=== PATIENT | female | born 1960 | race Caucasian/White ===

== ENCOUNTER 2021-12-16 16:05 | Inpatient (IN) | payer OTHER ==
[2021-12-16] MEDS ORDERED: Sodium Chloride 0.9% 1000 ML 1,000 ML ONE ×2 (16:16→17:11)
--- NOTE | 2021-12-16 16:26 | ERPHSYRPT ---
- History of Present Illness Time Seen by Provider: 12/16/21 16:25 Source: EMS, long term records Exam Limitations: clinical condition Physician History: This is an obese white female patient sent here via EMS from a local long term because of confusion and altered level consciousness. Her clinical condition precludes her from providing us with any type of history. The patient has been at that long term for approximately 5 days following a right hip replacement and diagnosis of postoperative pneumonia. Patient is at the long term for both recovery and physical therapy. Ordinarily, the patient is awake and alert at least to self. Patient arrives with a systolic blood pressure of 69. Timing/Duration: today Severity: severe Character of Deficits: other (Unable to answer any questions. Patient is moaning and occasionally mumbling) Deficits: bed-ridden Baseline/Normal Cognition: alert but confused Current Cognition: alert but confused Baseline Gait: unable to walk Associated Symptoms: confusion Allergies/Adverse Reactions: No Known Drug Allergies Allergy (Verified 12/16/21 16:36) Home Medications: Acetaminophen 500 mg [Tylenol Extra Strength 500 mg] 500 mg PO Q4-6HPRN PRN 12/16/21 [History] Aspirin EC 325 mg [Ecotrin 325 MG] 325 mg PO BID 12/16/21 [History] Bisacodyl 10 mg [Dulcolax 10 MG SUPP] 10 mg RC DAILY PRN 12/16/21 [History] Budesonide/Formoterol Fumarate [Budesonide-Formoterol 160-4.5] 10.2 gm IH BID 12/16/21 [History] Carvedilol 3.125 mg [Coreg 3.125 MG] 3.125 mg PO BID 12/16/21 [History] Divalproex Sodium 500 mg PO QID 12/16/21 [History] Furosemide [Lasix] 20 mg PO BID 12/16/21 [History] Hydrocodone/Acetaminophen [Hydrocodone-Acetamin 10-325 mg] 1 each PO QID 12/16/21 [History] Levetiracetam [Keppra] 500 mg PO BID 12/16/21 [History] Lisinopril 5 mg [Zestril 5 MG] 5 mg PO DAILY 07/29/22 [History] Travel Risk - International Travel Have you traveled outside of the country in past 3 weeks: No - Coronavirus Screening Are you exhibiting any of the following symptoms?: No Close contact with a COVID-19 positive Pt in past 14-21 Days: No - Review of Systems Constitutional: No Symptoms Eyes: No Symptoms Ears, Nose, & Throat: No Symptoms Respiratory: No Symptoms Cardiac: No Symptoms Abdominal/Gastrointestinal: No Symptoms Genitourinary Symptoms: No Symptoms Musculoskeletal: No Symptoms Skin: No Symptoms Neurological: Lethargy, Other (Confusion) Psychological: No Symptoms Endocrine: No Symptoms Hematologic/Lymphatic: No Symptoms Immunological/Allergic: No Symptoms All Other Systems: Reviewed and Negative - Past Medical History Pertinent Past Medical History: Yes - Past Surgical History Past Surgical History: Yes - Nursing Vital Signs Nursing Vital Signs: Initial Vital Signs Temperature 97.2 F 12/16/21 16:07 Pulse Rate 106 H 12/16/21 16:07 Respiratory Rate 12/16/21 16:07 Blood Pressure 67/55 12/16/21 16:07 O2 Sat by Pulse Oximetry 99 12/16/21 16:07 Pain Scale Pain Intensity 0 - [place] Coma Scale Best Eye Response (Yuliana): (4) open spontaneously Best Verbal Response ([place]): (2) incomprehsible sounds Best Motor Response (Yuliana): (5) localizes to pain Yuliana Total: 11 - Physical Exam General Appearance: moderate distress, alert, obese Eye Exam: bilateral eye: normal inspection, PERRL, EOMI Ears, Nose, Throat Exam: dry mucous membranes Neck Exam: normal inspection, non-tender, supple, full range of motion Respiratory: normal breath sounds, lungs clear, airway intact, No chest tenderness, No respiratory distress Gastrointestinal: soft, normal bowel sounds, tenderness (Appears to have ge neralized tenderness to palpation.), No guarding, No rebound Pelvic Exam: not done Rectal Exam: not done Back Exam: normal inspection, normal range of motion, No CVA tenderness, No vertebral tenderness Extremity Exam: pelvis stable, other (Bandage on right hip) Mental Status: alert, other (Does not follow commands and 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 No comparison twelve-lead EKG available.) Ordered Tests: Active Orders 24 hr Category Date Time Status Drafter Electromechanical STAT Care 12/16/21 16:27 Active EKG-ER Only STAT Care 12/16/21 16:26 Active IV Insertion STAT Care 12/16/21 16:26 Active NPO (ED) STAT Care 12/16/21 16:26 Active Pulse Oximetry (ED) STAT Care 12/16/21 16:26 Active ABDOMEN AND PELVIS W/0 CONTRAS [CT] Stat Exams 12/16/21 16:27 Completed CHEST 1 VIEW (PORTABLE) Stat Exams 12/16/21 16:26 Completed HEAD WITHOUT CONTRAST [CT] Stat Exams 12/16/21 16:26 Completed BLOOD CULTURE Stat Lab 12/16/21 16:35 Received CBC W DIFF Stat Lab 12/16/21 16:35 Completed CMP Stat Lab 12/16/21 16:35 Completed CULTURE,URINE Stat Lab 12/16/21 16:42 Received Lactic Acid Stat Lab 12/16/21 16:26 Completed [place] Screen Stat Lab 12/16/21 16:35 Completed UA W/RFX CULTURE Stat Lab 12/16/21 16:42 Completed Transfer Order Routine Transfer 12/16/21 Ordered Medication Summary Discontinued Medications Generic Name Dose Route Start Last Admin Trade Name Freq PRN Reason Stop Dose Admin Divalproex Sodium 500 mg 12/16/21 18:36 Divalproex Sodium 250 Mg Tablet Delayed Release PO 12/16/21 18:37 STAT ONE Sodium Chloride Confirm 12/16/21 16:16 Sodium Chloride 0.9% 1000 Ml Administered 12/16/21 16:17 Dose 1,000 mls @ ud .ROUTE .STK-MED ONE Sodium Chloride 1,000 mls @ 999 mls/hr 12/16/21 16:26 12/16/21 18:16 Sodium Chloride 0.9% 1000 Ml IV 12/16/21 17:26 Infused .Q1H1M STA Infusion Meropenem 1 gm/ Sodium 100 mls @ 200 mls/hr 12/16/21 17:03 12/16/21 17:11 Chloride IV 12/16/21 17:32 200 mls/hr STAT ONE Administration Sodium Chloride 1,000 mls @ 999 mls/hr 12/16/21 17:03 12/16/21 17:49 Sodium Chloride 0.9% 1000 Ml IV 12/16/21 18:03 999 mls/hr .Q1H1M STA Administration Sodium Chloride Confirm 12/16/21 17:10 Sodium Chloride 100ml Mini-Bag Plus Administered 12/16/21 17:11 Dose 100 mls @ ud IV .STK-MED ONE Sodium Chloride Confirm 12/16/21 17:11 Sodium Chloride 0.9% 1000 Ml Administered 12/16/21 17:12 Dose 1,000 mls @ ud .ROUTE .STK-MED ONE Levetiracetam 500 mg/ Dextrose 105 mls @ 400 mls/hr 12/16/21 17:38 12/16/21 17:51 IV 12/16/21 17:53 400 mls/hr STAT ONE Administration Levetiracetam 500 mg 12/16/21 18:35 Levetiracetam 500 Mg Tablet PO 12/16/21 18:36 STAT ONE Meropenem Confirm 12/16/21 17:10 Meropenem 1 Gm Vial Administered 12/16/21 17:11 Dose 1 gm IV .STK-MED ONE Lab/Rad Data: Laboratory Result Diagrams 12/16/21 16:35 12/16/21 16:35 Laboratory Results 12/16/21 12/16/21 12/16/21 Range/Units 16:42 16:35 16:35 WBC (4.0-10.5) x10^3/uL RBC (4.1-5.4) x10^6/uL Hgb (12.0-16.0) g/dL Hct (35-47) % MCV (78-100) fL MCH (26-32) pg MCHC (32-36) g/dL RDW (11.5-14.0) % Plt Count (150-450) x10^3/uL MPV (7.5-11.0) fL Gran % (36.0-66.0) % Immature Gran % (Auto) (0.00-0.4) % Nucleat RBC Rel Count (0.00-0.1) % Eos # (Auto) (0-0.5) x10^3/uL Immature Gran # (Auto) (0.00-0.03) x10^3u/L Absolute Lymphs (auto) (1.0-4.6) x10^3/uL Absolute Monos (auto) (0.0-1.3) x10^3/uL Absolute Nucleated RBC (0.00-0.01) x10^3u/L Lymphocytes % (24.0-44.0) % Monocytes % (0.0-12.0) % Eosinophils % (0.00-5.0) % Basophils % (0.0-0.4) % Absolute Granulocytes (1.4-6.9) x10^3/uL Basophils # (0-0.4) x10^3/uL Sodium (137-145) mmol/L Potassium (3.5-5.1) mmol/L Chloride (98-107) mmol/L Carbon Dioxide (22-30) mmol/L Anion Gap (5-15) MEQ/L BUN (7-17) mg/dL Creatinine (0.52-1.04) mg/dL Estimated GFR ML/MIN Glucose (74-106) mg/dL Lactic Acid (0.4-2.0) Calcium (8.4-10.2) mg/dL Total Bilirubin (0.2-1.3) mg/dL AST (14-36) U/L ALT (0-35) U/L Alkaline Phosphatase (38-126) U/L Ammonia (9-30) umol/L Serum Total Protein (6.3-8.2) g/dL Albumin (3.5-5.0) g/dL Urinalys Dipstick Clnc MAIN LAB Urine Color YELLOW (YELLOW) Urine Appearance SLIGHTLY CLOUDY (CLEAR) Urine pH 5.0 (5-6) Ur Specific [place] 1.025 (1.005-1.025) POC Urine Protein Conf NEGATIVE (Negative) Urine Ketones NEGATIVE (NEGATIVE) Urine Nitrite NEGATIVE (NEGATIVE) Urine Bilirubin NEGATIVE (NEGATIVE) Urine Urobilinogen 0.2 (0-1) mg/dL Urine Leukocytes MODERATE (NEGATIVE) Urine WBC (Auto) 51-100 (0-5) /HPF Urine RBC (Auto) 26-50 (0-2) /HPF U Epithel Cells (Auto) FEW (FEW) /HPF Urine Bacteria (Auto) FEW (NEGATIVE) /HPF Urine RBC TRACE-LYSED (0-5) William/ul Urine Mucus (Auto) SLIGHT (NEGATIVE) /HPF Ur Culture Indicated? YES Urine Glucose NEGATIVE (NEGATIVE) mg/dL Valproic Acid (50-100) ug/mL Monoscreen NEGATIVE (Negative) Influenza Type A Ag NEGATIVE (NEGATIVE) Influenza Type B Ag NEGATIVE (NEGATIVE) RSV (PCR) NEGATIVE (Negative) SARS-CoV-2 (PCR) NEGATIVE (NEGATIVE) Group A Strep Antibody (NEGATIVE) 12/16/21 12/16/21 12/16/21 Range/Units 16:35 16:35 16:35 WBC (4.0-10.5) x10^3/uL RBC (4.1-5.4) x10^6/uL Hgb (12.0-16.0) g/dL Hct (35-47) % MCV (78-100) fL MCH (26-32) pg MCHC (32-36) g/dL RDW (11.5-14.0) % Plt Count (150-450) x10^3/uL MPV (7.5-11.0) fL Gran % (36.0-66.0) % Immature Gran % (Auto) (0.00-0.4) % Nucleat RBC Rel Count (0.00-0.1) % Eos # (Auto) (0-0.5) x10^3/uL Immature Gran # (Auto) (0.00-0.03) x10^3u/L Absolute Lymphs (auto) (1.0-4.6) x10^3/uL Absolute Monos (auto) (0.0-1.3) x10^3/uL Absolute Nucleated RBC (0.00-0.01) x10^3u/L Lymphocytes % (24.0-44.0) % Monocytes % (0.0-12.0) % Eosinophils % (0.00-5.0) % Basophils % (0.0-0.4) % Absolute Granulocytes (1.4-6.9) x10^3/uL Basophils # (0-0.4) x10^3/uL Sodium 141 (137-145) mmol/L Potassium 4.8 (3.5-5.1) mmol/L Chloride 103 (98-107) mmol/L Carbon Dioxide 27 (22-30) mmol/L Anion Gap 16.1 H (5-15) MEQ/L BUN 49 H (7-17) mg/dL Creatinine 1.70 H (0.52-1.04) mg/dL Estimated GFR 32.5 ML/MIN Glucose 100 (74-106) mg/dL Lactic Acid (0.4-2.0) Calcium 8.5 (8.4-10.2) mg/dL Total Bilirubin 0.80 (0.2-1.3) mg/dL AST 22 (14-36) U/L ALT 12 (0-35) U/L Alkaline Phosphatase 155 H (38-126) U/L Ammonia < 9 L (9-30) umol/L Serum Total Protein 6.1 L (6.3-8.2) g/dL Albumin 2.9 L (3.5-5.0) g/dL Urinalys Dipstick Clnc Urine Color (YELLOW) Urine Appearance (CLEAR) Urine pH (5-6) Ur Specific [place] (1.005-1.025) POC Urine Protein Conf (Negative) Urine Ketones (NEGATIVE) Urine Nitrite (NEGATIVE) Urine Bilirubin (NEGATIVE) Urine Urobilinogen (0-1) mg/dL Urine Leukocytes (NEGATIVE) Urine WBC (Auto) (0-5) /HPF Urine RBC (Auto) (0-2) /HPF U Epithel Cells (Auto) (FEW) /HPF Urine Bacteria (Auto) (NEGATIVE) /HPF Urine RBC (0-5) William/ul Urine Mucus (Auto) (NEGATIVE) /HPF Ur Culture Indicated? Urine Glucose (NEGATIVE) mg/dL Valproic Acid (50-100) ug/mL Monoscreen (Negative) Influenza Type A Ag (NEGATIVE) Influenza Type B Ag (NEGATIVE) RSV (PCR) (Negative) SARS-CoV-2 (PCR) (NEGATIVE) Group A Strep Antibody NOT DETECTED (NEGATIVE) 12/16/21 12/16/21 12/16/21 Range/Units 16:35 16:30 16:26 WBC 8.4 (4.0-10.5) x10^3/uL RBC 2.79 L (4.1-5.4) x10^6/uL Hgb 9.1 L (12.0-16.0) g/dL Hct 30.7 L (35-47) % MCV 110.0 H (78-100) fL MCH 32.6 H (26-32) pg MCHC 29.6 L (32-36) g/dL RDW 19.2 H (11.5-14.0) % Plt Count 110 L (150-450) x10^3/uL MPV 9.6 (7.5-11.0) fL Gran % 70.0 H (36.0-66.0) % Immature Gran % (Auto) 0.6 H (0.00-0.4) % Nucleat RBC Rel Count 0.0 (0.00-0.1) % Eos # (Auto) 0.03 (0-0.5) x10^3/uL Immature Gran # (Auto) 0.05 H (0.00-0.03) x10^3u/L Absolute Lymphs (auto) 1.42 (1.0-4.6) x10^3/uL Absolute Monos (auto) 0.99 (0.0-1.3) x10^3/uL Absolute Nucleated RBC 0.00 (0.00-0.01) x10^3u/L Lymphocytes % 17.0 L (24.0-44.0) % Monocytes % 11.9 (0.0-12.0) % Eosinophils % 0.4 (0.00-5.0) % Basophils % 0.1 (0.0-0.4) % Absolute Granulocytes 5.85 (1.4-6.9) x10^3/uL Basophils # 0.01 (0-0.4) x10^3/uL Sodium (137-145) mmol/L Potassium (3.5-5.1) mmol/L Chloride (98-107) mmol/L Carbon Dioxide (22-30) mmol/L Anion Gap (5-15) MEQ/L BUN (7-17) mg/dL Creatinine (0.52-1.04) mg/dL Estimated GFR ML/MIN Glucose (74-106) mg/dL Lactic Acid 3.4 H (0.4-2.0) Calcium (8.4-10.2) mg/dL Total Bilirubin (0.2-1.3) mg/dL AST (14-36) U/L ALT (0-35) U/L Alkaline Phosphatase (38-126) U/L Ammonia (9-30) umol/L Serum Total Protein (6.3-8.2) g/dL Albumin (3.5-5.0) g/dL Urinalys Dipstick Clnc Urine Color (YELLOW) Urine Appearance (CLEAR) Urine pH (5-6) Ur Specific [place] (1.005-1.025) POC Urine Protein Conf (Negative) Urine Ketones (NEGATIVE) Urine Nitrite (NEGATIVE) Urine Bilirubin (NEGATIVE) Urine Urobilinogen (0-1) mg/dL Urine Leukocytes (NEGATIVE) Urine WBC (Auto) (0-5) /HPF Urine RBC (Auto) (0-2) /HPF U Epithel Cells (Auto) (FEW) /HPF Urine Bacteria (Auto) (NEGATIVE) /HPF Urine RBC (0-5) William/ul Urine Mucus (Auto) (NEGATIVE) /HPF Ur Culture Indicated? Urine Glucose (NEGATIVE) mg/dL Valproic Acid 94.2 (50-100) ug/mL Monoscreen (Negative) Influenza Type A Ag (NEGATIVE) Influenza Type B Ag (NEGATIVE) RSV (PCR) (Negative) SARS-CoV-2 (PCR) (NEGATIVE) Group A Strep Antibody (NEGATIVE) - Progress Progress: improved, re-examined Progress Note: 12/16/21 17:51 CAT scan of the head without contrast shows a nonacute senile brain. There is opacification of bilateral mastoid cells. 12/16/21 18:09 An updated history was obtained from the patient's son-in-law. Patient has a history of lung nodules/opacities. She is in the process of having those worked up at this time. Patient's son-in-law also states that she has a history of seizure disorder and after seizures she has had this kind of reaction. In addition, patient has had low blood pressure several times especially after a seizure episode. CT scan of the abdomen and pelvis without contrast shows no acute intra- abdominal process. There are small bibasilar effusions with compressive atelectasis. There is a question of right mid and right lower lobe masslike opacities present. 12/16/21 18:29 Medical decision making: This patient has pneumonia and a urinary tract infection. She also has hypertension. She has not had her p.m. doses of valproic acid or Keppra. I spoke with Dr. Roger Fields. The plan is to admit her to telemetry with seizure precautions as well as intravenous fluids, intravenous Primaxin, and darted her on her oral antiseizure medications. We will repeat labs in the morning. Counseled pt/family regarding: lab results, diagnosis, rad results - Departure Departure Disposition: In-patient Admission Clinical Impression: Hypotension, Pneumonia, Sepsis, UTI (urinary tract infection) Condition: Fair Critical Care Time: Yes Critical Care Time(excluding separately billable procedures): Critical 30-74 mins (30 minutes)
[2021-12-16] MEDS: Sodium Chloride 0.9% 1000 ML 1,000 ML IV STA ×2 (16:35→17:11)
[2021-12-16 16:47] LABS: Absolute Neutrophil Ct (ANC) 5.85 x10^3/uL (1.4-6.9); Basophil (Absolute #) 0.01 x10^3/uL (0-0.4); Eosinophil % 0.4 % (0.00-5.0); Eosinophil (Absolute #) 0.03 x10^3/uL (0-0.5); Hematocrit 30.7 % (35-47); Hemoglobin 9.1 g/dL (12.0-16.0); Lymphocyte (Absolute #) 1.42 x10^3/uL (1.0-4.6); Mean Corpuscular Hemoglobin 32.6 pg (26-32); Mean Corpuscular Hgb Concent. 29.6 g/dL (32-36); Mean Platelet Volume 9.6 fL (7.5-11.0); Monocyte (Absolute #) 0.99 x10^3/uL (0.0-1.3); Monocytes % 11.9 % (0.0-12.0); Platelet Count 110 x10^3/uL (150-450); Red Blood Count 2.79 x10^6/uL (4.1-5.4); Red Cell Distribution Width 19.2 % (11.5-14.0); White Blood Count 8.4 x10^3/uL (4.0-10.5)
[2021-12-16 16:58] LABS: ALBUMIN 2.9 g/dL (3.5-5.0); ANION GAP 16.1 MEQ/L (5-15); BILIRUBIN,TOTAL 0.8 mg/dL (0.2-1.3); Calcium 8.5 mg/dL (8.4-10.2); Creatinine 1 1.7 mg/dL (0.52-1.04); EST GLOMERULAR FILTRATION RATE 32.5 ML/MIN; Potassium 4.8 mmol/L (3.5-5.1); Total Protein 6.1 g/dL (6.3-8.2)
[2021-12-16] MEDS ORDERED: Merrem 1 GM in Sodium Chloride 100ML MINI-BAG PLUS 100 ML IV ONE (17:03)
[2021-12-16] MEDS ORDERED: Sodium Chloride 0.9% 1000 ML 1,000 ML IV STA (17:03)
[2021-12-16] MEDS ORDERED: Sodium Chloride 100ML MINI-BAG PLUS 100 ML IV ONE (17:10)
[2021-12-16] MEDS ORDERED: Merrem IV ONE (17:10)
[2021-12-16 17:26] LABS: INFLUENZA A NEGATIVE (NEGATIVE); INFLUENZA B NEGATIVE (NEGATIVE); RESPIRATORY SYNCTIAL VIRUS NEGATIVE (Negative); SARS-CoV-2 Xpert Express NEGATIVE (NEGATIVE)
[2021-12-16] MEDS ORDERED: Keppra 500 MG/5 ML*** 500 MG in D5w 100ML Mini Bag 100 ML 100 ML IV ONE (17:38)
--- NOTE | 2021-12-16 17:49 | XRAY ---
Indication: Confusion. Loss of consciousness. Multiple contiguous axial images obtained through the head without contrast. Comparison: None Age-appropriate global atrophy and mild periventricular degenerative micro-ischemia bilaterally. No acute intracranial hemorrhage, abnormal extra-axial fluid collection, or mass effect. Fourth ventricle is midline without hydrocephalus. Bony calvarium intact. Small fluid leveling in both maxillary and left sphenoid sinuses. Opacification of mastoid air cells, right greater than left presumed inflammatory. Impression: Nonacute senile brain. Incidental paranasal sinus disease and opacification both mastoid air cells.
--- NOTE | 2021-12-16 17:57 | XRAY ---
Indication: Confusion, loss of consciousness, and fever. Comparison: July 20, 2011 Portable chest demonstrates new bibasilar infiltrates/atelectasis/effusions. Heart not enlarged. Bony thorax intact with mild osteopenia and degenerative changes.
--- NOTE | 2021-12-16 17:57 | XRAY ---
Indication: Confusion. Loss of consciousness. Multiple contiguous axial images obtained through the abdomen and pelvis without contrast. Comparison: None Patient's arms produces beam artifact limiting exam. Also right hip arthroplasty produces extreme beam artifact also limiting exam. Lung bases demonstrates incompletely visualized small bibasilar effusions and bibasilar compressive atelectasis, right greater than left. Query right middle and partially visualized posterior right lower lobe noncalcified masslike opacities, largest 2.8 cm. Heart not enlarged with mitral valve calcifications. Small hiatal hernia. Noncontrasted stomach and bowel loops appear nonobstructed with normal appendix. Minimal scattered colonic diverticulosis without diverticulitis. No free fluid/air. Mildly distended gallbladder without obvious gallstones. Tiny splenic calcified granulomas. Bilateral adrenal hypertrophy. Urinary bladder is empty with Oneil balloon catheter in situ. Remaining liver, gallbladder, pancreas, spleen, adrenal glands, kidneys, ureters, and uterus unremarkable for noncontrast exam. Moderate scattered vascular calcifications including both renal arteries. 3.3 x 3.5 cm distal AAA. Osseous structures demonstrates mild osteopenia and remote-appearing L1 superior endplate fracture with 50-75 % height loss. Impression: 1. Beam artifact from patient's arms and right hip arthroplasty. 2. Small bibasilar pleural effusions with compressive atelectasis. Query right middle and right lower lobe masslike opacities. Outside comparison studies recommended if available. 3. Mild distended gallbladder without gallstones. Sonogram may yield further information if clinically warranted. 4. Small hiatal hernia, colonic diverticulosis, bilateral adrenal hypertrophy, arterial short disease with distal AAA, and chronic bony findings.
[2021-12-16 18:07] LABS: Bacteria FEW /HPF (NEGATIVE); Epithelial Cells FEW /HPF (FEW); Mucus SLIGHT /HPF (NEGATIVE); RBC 26-50 /HPF (0-2); WBC 51-100 /HPF (0-5)
[2021-12-16 18:08] LABS: Appearance SLIGHTLY CLOUDY (CLEAR); Bilirubin NEGATIVE (NEGATIVE); Glucose NEGATIVE (NEGATIVE); Ketones NEGATIVE (NEGATIVE); Nitrite NEGATIVE (NEGATIVE); Protein,Urine Dip NEGATIVE (Negative); RBC TRACE-LYSED Ery/ul (0-5); Specific Gravity 1.025 (1.005-1.025); Urine Cultured Indicated? YES; Urobilinogen 0.2 mg/dL (0-1)
[2021-12-16 18:09] LABS: Dipstick done @ ? MAIN LAB
[2021-12-16] MEDS ORDERED: KEPPRA PO ONE (18:35)
[2021-12-16] MEDS ORDERED: TYLENOL 325 MG PO PRN (20:05)
[2021-12-16] MEDS ORDERED: Zofran 4 MG/2 ML VIAL IV PRN (20:05)
[2021-12-16] MEDS ORDERED: NOREPINEPHRINE 8 MG/250 ML-D5W 8 MG/250 ML PLAST..BAG IV PRN (21:20)
[2021-12-16] MEDS: Sodium Chloride 0.9% 1000 ML 1,000 ML IV SCH (21:21)
[2021-12-16] MEDS ORDERED: Sodium Chloride 0.9% 500 ML 500 ML IV ONE (21:22)
[2021-12-16] MEDS ORDERED: Levofloxacin 500MG/100ML D5W 500 MG/100 ML BAG IV SCH (22:00)
[2021-12-16] MEDS ORDERED: BRETHINE 1 MG/ML SQ ONE (22:08)
[2021-12-16] MEDS: SUBLIMAZE 100 MCG/2 ML IV PRN (22:12)
[2021-12-16] MEDS ORDERED: XYLOCAINE 1% HCL 20 ML MDV ONE (23:17)
[2021-12-17] MEDS ORDERED: Depacon 500 MG/5 ML IV ONE (01:35)
[2021-12-17] MEDS ORDERED: Sodium Chloride 0.9% 100 ML ONE (01:36)
[2021-12-17] MEDS: Depacon 500 MG/5 ML*** 500 MG in Sodium Chloride 0.9% 100 ML IV SCH ×4 (02:27→23:41)
[2021-12-17] MEDS: SUBLIMAZE 100 MCG/2 ML IV PRN ×3 (03:10→16:05)
[2021-12-17 04:07] LABS: Basophil (Absolute #) 0.01 x10^3/uL (0-0.4); Eosinophil % 0.3 % (0.00-5.0); Eosinophil (Absolute #) 0.02 x10^3/uL (0-0.5); Hemoglobin 8.1 g/dL (12.0-16.0); Lymphocyte (Absolute #) 0.84 x10^3/uL (1.0-4.6); Lymphocytes % 11.8 % (24.0-44.0); Mean Cell Volume 107.1 fL (78-100); Mean Corpuscular Hemoglobin 32.1 pg (26-32); Monocytes % 16.9 % (0.0-12.0); Neutrophil % 70.5 % (36.0-66.0); Platelet Count 111 x10^3/uL (150-450); Red Blood Count 2.52 x10^6/uL (4.1-5.4); Red Cell Distribution Width 18.7 % (11.5-14.0); White Blood Count 7.1 x10^3/uL (4.0-10.5)
[2021-12-17 04:30] LABS: ALBUMIN 2.6 g/dL (3.5-5.0); ALKALINE PHOSPHATASE 146 U/L (38-126); ANION GAP 11.3 MEQ/L (5-15); BLOOD UREA NITROGEN 34 mg/dL (7-17); CHLORIDE 108 mmol/L (98-107); Calcium 8.5 mg/dL (8.4-10.2); Carbon Dioxide 24 mmol/L (22-30); Creatinine 1 0.67 mg/dL (0.52-1.04); EST GLOMERULAR FILTRATION RATE > 60.0 ML/MIN; Glucose 112 mg/dL (74-106); NT PRO BNP 3330 pg/mL (0-900); Potassium 3.8 mmol/L (3.5-5.1); SGOT/AST 23 U/L (14-36); SGPT/ALT 11 U/L (0-35); SODIUM 139 mmol/L (137-145); Total Protein 5.8 g/dL (6.3-8.2)
[2021-12-17] MEDS: Sodium Chloride 0.9% 1000 ML 1,000 ML IV SCH ×2 (05:47→19:18)
--- NOTE | 2021-12-17 07:27 | XRAY ---
Indication: Central line placement. Comparison: Taken earlier in the day Portable chest demonstrates new left subclavian central venous access catheter with tip projecting over proximal SVC. No pneumothorax. Remaining chest unchanged again demonstrating bibasilar infiltrates/atelectasis/effusions. Heart not enlarged.
[2021-12-17] MEDS: Advair Hfa 230/21 Mcg COMMON CANISTER IH SCH ×2 (07:28→18:48)
[2021-12-17] MEDS ORDERED: Keppra 500 MG/5 ML*** 500 MG in D5w 100ML Mini Bag 100 ML 100 ML IV SCH ×2 (09:00→10:00)
--- NOTE | 2021-12-17 12:29 | PCM.HP ---
History of Present Illness - Chief Complaint Chief Complaint: Urosepsis, Pneumonia History of Present Illness: is a 61 year old female pt from [facility] with dementia, HTN, and sz d/o who was brought in by EMS with confusion and AMS. History per ER note and staff as pt is not oriented. She had a hip surgery on the R about 3 weeks ago and had postoperative pneumonia. Brought to [facility] about 4d ago for rehab. When in the ER, she was only slightly arouseable. Her systolic BP was 69 systolic. She was given 2L of fluid in the ER. When she reached the med surg floor, her BP decreased to low 70s systolic and she was moved to ICU and started on levophed. However, the levophed infiltrated x 2 (terbutaline was given SQ at infiltration sites) so she got a central line from Dr. Green (staffing ER - thank you) and received another 500cc NS bolus. Blood cultures were taken x 2. EKG nonacute and troponin elevated, but stable x 3. Initial eGFR 32, but up to >60 this morning. Overnight, Tmax 100.2. Currently her BP is 110s-140s systolic. Her BP meds are of course being held a nd she is only on 2 mcg levophed. She was alert for RN first thing this morning, drinking coffee and eating jello (able to feed herself). At my exam, she was somnolent initially. She remains oriented x 1, which is apparently her baseline (place was "[place]" and month was "[place]" even though I asked it twice). Confused, but pleasant. Says she is cold and does shake intermittently until given a warm blanket. - Review of Systems All Other Systems: Unable due to dementia Medications & Allergies Home Medications: Home Medication List Acetaminophen 500 mg [Tylenol Extra Strength 500 mg] 500 mg PO Q4HPRN PRN 12/16/21 [History Confirmed 12/16/21] Aspirin EC 325 mg [Ecotrin 325 MG] 325 mg PO BID 12/16/21 [History Confirmed 12/16/21] Bisacodyl 10 mg [Dulcolax 10 MG SUPP] 10 mg RC DAILY PRN PRN 12/16/21 [History Confirmed 12/16/21] Budesonide/Formoterol Fumarate [Budesonide-Formoterol 160-4.5] 2 puff IH BID 12/16/21 [History Confirmed 12/16/21] Carvedilol 3.125 mg [Coreg 3.125 MG] 3.125 mg PO BID 12/16/21 [History Confirmed 12/16/21] Divalproex Sodium 500 mg PO QID 12/16/21 [History Confirmed 12/16/21] Furosemide [Lasix] 20 mg PO BID 12/16/21 [History Confirmed 12/16/21] Hydrocodone/Acetaminophen [Hydrocodone-Acetamin 10-325 mg] 1 tab PO Q6H PRN PRN 12/16/21 [History Confirmed 12/16/21] Levetiracetam [Keppra] 500 mg PO BID 12/16/21 [History Confirmed 12/16/21] Lisinopril 5 mg [Zestril 5 MG] 5 mg PO DAILY 12/16/21 [History Confirmed 12/16/21] Magnesium Hydroxide 30 ml [Milk of Magnesia 30 ml] 30 ml PO Q8H PRN PRN 12/16/21 [History Confirmed 12/16/21] Sodium Phosphate,Summit-Dibasic [Fleet Enema] 1 applic RC DAILY PRN PRN 12/16/21 [History Confirmed 12/16/21] Allergies/Adverse Reactions: Allergies Allergy/AdvReac Type Severity Reaction Status Date / Time No Known Drug Allergies Allergy Verified 12/16/21 16:36 - Past Medical History Past Medical History: Yes Neurological History: Dementia, Seizures ENT History: No Pertinent History Cardiac History: Arrhythmia, Congestive Heart Failure Respiratory History: Pneumonia, Other Endocrine Medical History: No Pertinent History Musculoskelatal History: Other GI Medical History: No Pertinent History History: No Pertinent History Pyscho-Social History: Depression Comment: possible cancer nodule in the lung - Female History Are you now?: No - Past Surgical History Past Surgical History: Yes Neuro Surgical History: No Pertinent History Cardiac History: No Pertinent History Respiratory Surgery: No Pertinent History GI Surgical History: No Pertinent History Genitourinary Surgical Hx: No Pertinent History Musculskeletal Surgical Hx: Joint Replacement Female Surgical History: Tubal Ligation Other Surgical History: rt hip - Social History Smoking Status: Heavy tobacco smoker How long have you smoked: 40 years Exposure to second hand smoke: No Alcohol: None Drug Use: none - Physical Exam Vital Signs: Vital Signs - 24 hr Temp Pulse Resp BP BP Pulse Ox 12/17/21 12:00 90 12/17/21 11:00 99.9 F 78 17 116/58 12/17/21 10:00 99.7 F 75 16 157/62 134/84 100 12/17/21 09:00 99.5 F 89 31 H 147/86 97 12/17/21 08:00 99.5 F 83 16 116/76 95 12/17/21 07:56 76 12/17/21 07:28 71 18 98 12/17/21 06:58 99.3 F 87 18 114/70 98 12/17/21 06:00 99.7 F 85 16 119/68 100 12/17/21 05:34 92 H 16 125/66 100 12/17/21 05:00 100.0 F 82 16 146/72 100 12/17/21 04:00 100.0 F 82 20 133/82 99 12/17/21 03:00 100.2 F 98 H 16 135/76 99 12/17/21 02:00 100.2 F 94 H 16 144/87 99 12/17/21 01:00 100.0 F 91 H 16 99/60 100 12/17/21 00:32 68 116/66 12/17/21 00:05 89 169/84 12/16/21 22:55 85 54/36 12/16/21 22:38 95 H 52/38 12/16/21 21:39 100.0 F 86 17 84/59 96 12/16/21 20:25 97 H 18 93 L 12/16/21 20:06 96.8 F 97 H 18 82/54 93 L 12/16/21 18:02 99.5 F 85 22 90/59 99 12/16/21 17:10 100.0 F 90 22 101/73 99 12/16/21 16:32 99 12/16/21 16:07 97.2 F 106 H 22 67/55 99 General Appearance: no apparent distress, other (somnolent initially; woke to touch, then remained awake and answered questions, though often inappropriately.) Neurologic Exam: confusion Eye Exam: eyes nml inspection Neck Exam: normal inspection, non-tender, No lymphadenopathy, No thyromegaly Respiratory Exam: normal breath sounds, lungs clear, No crackles/rales, No rhonchi, No wheezing Cardiovascular Exam: regular rate/rhythm, normal heart sounds, No murmur Gastrointestinal/Abdomen Exam: soft, tenderness (suprapubic: when asked about pain, she says, "I don't want to crap my pants."), No normal bowel sounds (hypoactive but present) Extremity Exam: normal inspection (central line inferior to L shoulder), other (no cyanosis or edema of UE or LE) Skin Exam: normal color, warm, dry, other (several tiny scabs on L hand/wrist) Wound Assessment: Skin/Wound Assessment Wound/Incision Assessment Start: 12/16/21 21:07 Text: Status: Active Freq: Q6H Protocol: Document 12/17/21 08:00 RDUHNE (Rec: 12/17/21 08:10 [email or web address] [id number]) Wound/Incision Assessment Right Hip Wound Assessment Shift Assessment Wound Type Incision Dressing Status Dry & Intact Comment aquacel surgical dressing to right hip CDI Wound Photo Photo Taken No Results - Labs Lab/Micro Results: Lab Results-Last 24 Hours 12/16/21 12/16/21 12/16/21 Range/Units 16:26 16:30 16:35 WBC 8.4 (4.0-10.5) x10^3/uL RBC 2.79 L (4.1-5.4) x10^6/uL Hgb 9.1 L (12.0-16.0) g/dL Hct 30.7 L (35-47) % MCV 110.0 H (78-100) fL MCH 32.6 H (26-32) pg MCHC 29.6 L (32-36) g/dL RDW 19.2 H (11.5-14.0) % Plt Count 110 L (150-450) x10^3/uL MPV 9.6 (7.5-11.0) fL Gran % 70.0 H (36.0-66.0) % Immature Gran % (Auto) 0.6 H (0.00-0.4) % Nucleat RBC Rel Count 0.0 (0.00-0.1) % Eos # (Auto) 0.03 (0-0.5) x10^3/uL Immature Gran # (Auto) 0.05 H (0.00-0.03) x10^3u/L Absolute Lymphs (auto) 1.42 (1.0-4.6) x10^3/uL Absolute Monos (auto) 0.99 (0.0-1.3) x10^3/uL Absolute Nucleated RBC 0.00 (0.00-0.01) x10^3u/L Lymphocytes % 17.0 L (24.0-44.0) % Monocytes % 11.9 (0.0-12.0) % Eosinophils % 0.4 (0.00-5.0) % Basophils % 0.1 (0.0-0.4) % Absolute Granulocytes 5.85 (1.4-6.9) x10^3/uL Basophils # 0.01 (0-0.4) x10^3/uL Sodium (137-145) mmol/L Potassium (3.5-5.1) mmol/L Chloride (98-107) mmol/L Carbon Dioxide (22-30) mmol/L Anion Gap (5-15) MEQ/L BUN (7-17) mg/dL Creatinine (0.52-1.04) mg/dL Estimated GFR ML/MIN Glucose (74-106) mg/dL Lactic Acid 3.4 H (0.4-2.0) Calcium (8.4-10.2) mg/dL Total Bilirubin (0.2-1.3) mg/dL AST (14-36) U/L ALT (0-35) U/L Alkaline Phosphatase (38-126) U/L Ammonia (9-30) umol/L Troponin I (0.000-0.034) ng/mL NT-Pro-B Natriuret Pep (0-900) pg/mL Serum Total Protein (6.3-8.2) g/dL Albumin (3.5-5.0) g/dL Urinalys Dipstick Clnc Urine Color (YELLOW) Urine Appearance (CLEAR) Urine pH (5-6) Ur Specific Smilax (1.005-1.025) POC Urine Protein Conf (Negative) Urine Ketones (NEGATIVE) Urine Nitrite (NEGATIVE) Urine Bilirubin (NEGATIVE) Urine Urobilinogen (0-1) mg/dL Urine Leukocytes (NEGATIVE) Urine WBC (Auto) (0-5) /HPF Urine RBC (Auto) (0-2) /HPF U Epithel Cells (Auto) (FEW) /HPF Urine Bacteria (Auto) (NEGATIVE) /HPF Urine RBC (0-5) William/ul Urine Mucus (Auto) (NEGATIVE) /HPF Ur Culture Indicated? Urine Glucose (NEGATIVE) mg/dL Valproic Acid 94.2 (50-100) ug/mL Monoscreen (Negative) Influenza Type A Ag (NEGATIVE) Influenza Type B Ag (NEGATIVE) RSV (PCR) (Negative) SARS-CoV-2 (PCR) (NEGATIVE) Group A Strep Antibody (NEGATIVE) 12/16/21 12/16/21 12/16/21 Range/Units 16:35 16:35 16:35 WBC (4.0-10.5) x10^3/uL RBC (4.1-5.4) x10^6/uL Hgb (12.0-16.0) g/dL Hct (35-47) % MCV (78-100) fL MCH (26-32) pg MCHC (32-36) g/dL RDW (11.5-14.0) % Plt Count (150-450) x10^3/uL MPV (7.5-11.0) fL Gran % (36.0-66.0) % Immature Gran % (Auto) (0.00-0.4) % Nucleat RBC Rel Count (0.00-0.1) % Eos # (Auto) (0-0.5) x10^3/uL Immature Gran # (Auto) (0.00-0.03) x10^3u/L Absolute Lymphs (auto) (1.0-4.6) x10^3/uL Absolute Monos (auto) (0.0-1.3) x10^3/uL Absolute Nucleated RBC (0.00-0.01) x10^3u/L Lymphocytes % (24.0-44.0) % Monocytes % (0.0-12.0) % Eosinophils % (0.00-5.0) % Basophils % (0.0-0.4) % Absolute Granulocytes (1.4-6.9) x10^3/uL Basophils # (0-0.4) x10^3/uL Sodium 141 (137-145) mmol/L Potassium 4.8 (3.5-5.1) mmol/L Chloride 103 (98-107) mmol/L Carbon Dioxide 27 (22-30) mmol/L Anion Gap 16.1 H (5-15) MEQ/L BUN 49 H (7-17) mg/dL Creatinine 1.70 H (0.52-1.04) mg/dL Estimated GFR 32.5 ML/MIN Glucose 100 (74-106) mg/dL Lactic Acid (0.4-2.0) Calcium 8.5 (8.4-10.2) mg/dL Total Bilirubin 0.80 (0.2-1.3) mg/dL AST 22 (14-36) U/L ALT 12 (0-35) U/L Alkaline Phosphatase 155 H (38-126) U/L Ammonia < 9 L (9-30) umol/L Troponin I (0.000-0.034) ng/mL NT-Pro-B Natriuret Pep (0-900) pg/mL Serum Total Protein 6.1 L (6.3-8.2) g/dL Albumin 2.9 L (3.5-5.0) g/dL Urinalys Dipstick Clnc Urine Color (YELLOW) Urine Appearance (CLEAR) Urine pH (5-6) Ur Specific Smilax (1.005-1.025) POC Urine Protein Conf (Negative) Urine Ketones (NEGATIVE) Urine Nitrite (NEGATIVE) Urine Bilirubin (NEGATIVE) Urine Urobilinogen (0-1) mg/dL Urine Leukocytes (NEGATIVE) Urine WBC (Auto) (0-5) /HPF Urine RBC (Auto) (0-2) /HPF U Epithel Cells (Auto) (FEW) /HPF Urine Bacteria (Auto) (NEGATIVE) /HPF Urine RBC (0-5) William/ul Urine Mucus (Auto) (NEGATIVE) /HPF Ur Culture Indicated? Urine Glucose (NEGATIVE) mg/dL Valproic Acid (50-100) ug/mL Monoscreen (Negative) Influenza Type A Ag (NEGATIVE) Influenza Type B Ag (NEGATIVE) RSV (PCR) (Negative) SARS-CoV-2 (PCR) (NEGATIVE) Group A Strep Antibody NOT DETECTED (NEGATIVE) 12/16/21 12/16/21 12/16/21 Range/Units 16:35 16:35 16:42 WBC (4.0-10.5) x10^3/uL RBC (4.1-5.4) x10^6/uL Hgb (12.0-16.0) g/dL Hct (35-47) % MCV (78-100) fL MCH (26-32) pg MCHC (32-36) g/dL RDW (11.5-14.0) % Plt Count (150-450) x10^3/uL MPV (7.5-11.0) fL Gran % (36.0-66.0) % Immature Gran % (Auto) (0.00-0.4) % Nucleat RBC Rel Count (0.00-0.1) % Eos # (Auto) (0-0.5) x10^3/uL Immature Gran # (Auto) (0.00-0.03) x10^3u/L Absolute Lymphs (auto) (1.0-4.6) x10^3/uL Absolute Monos (auto) (0.0-1.3) x10^3/uL Absolute Nucleated RBC (0.00-0.01) x10^3u/L Lymphocytes % (24.0-44.0) % Monocytes % (0.0-12.0) % Eosinophils % (0.00-5.0) % Basophils % (0.0-0.4) % Absolute Granulocytes (1.4-6.9) x10^3/uL Basophils # (0-0.4) x10^3/uL Sodium (137-145) mmol/L Potassium (3.5-5.1) mmol/L Chloride (98-107) mmol/L Carbon Dioxide (22-30) mmol/L Anion Gap (5-15) MEQ/L BUN (7-17) mg/dL Creatinine (0.52-1.04) mg/dL Estimated GFR ML/MIN Glucose (74-106) mg/dL Lactic Acid (0.4-2.0) Calcium (8.4-10.2) mg/dL Total Bilirubin (0.2-1.3) mg/dL AST (14-36) U/L ALT (0-35) U/L Alkaline Phosphatase (38-126) U/L Ammonia (9-30) umol/L Troponin I (0.000-0.034) ng/mL NT-Pro-B Natriuret Pep (0-900) pg/mL Serum Total Protein (6.3-8.2) g/dL Albumin (3.5-5.0) g/dL Urinalys Dipstick Clnc MAIN LAB Urine Color YELLOW (YELLOW) Urine Appearance SLIGHTLY CLOUDY (CLEAR) Urine pH 5.0 (5-6) Ur Specific Smilax 1.025 (1.005-1.025) POC Urine Protein Conf NEGATIVE (Negative) Urine Ketones NEGATIVE (NEGATIVE) Urine Nitrite NEGATIVE (NEGATIVE) Urine Bilirubin NEGATIVE (NEGATIVE) Urine Urobilinogen 0.2 (0-1) mg/dL Urine Leukocytes MODERATE (NEGATIVE) Urine WBC (Auto) 51-100 (0-5) /HPF Urine RBC (Auto) 26-50 (0-2) /HPF U Epithel Cells (Auto) FEW (FEW) /HPF Urine Bacteria (Auto) FEW (NEGATIVE) /HPF Urine RBC TRACE-LYSED (0-5) William/ul Urine Mucus (Auto) SLIGHT (NEGATIVE) /HPF Ur Culture Indicated? YES Urine Glucose NEGATIVE (NEGATIVE) mg/dL Valproic Acid (50-100) ug/mL Monoscreen NEGATIVE (Negative) Influenza Type A Ag NEGATIVE (NEGATIVE) Influenza Type B Ag NEGATIVE (NEGATIVE) RSV (PCR) NEGATIVE (Negative) SARS-CoV-2 (PCR) NEGATIVE (NEGATIVE) Group A Strep Antibody (NEGATIVE) 12/16/21 12/16/21 12/17/21 Range/Units 18:48 22:10 00:52 WBC (4.0-10.5) x10^3/uL RBC (4.1-5.4) x10^6/uL Hgb (12.0-16.0) g/dL Hct (35-47) % MCV (78-100) fL MCH (26-32) pg MCHC (32-36) g/dL RDW (11.5-14.0) % Plt Count (150-450) x10^3/uL MPV (7.5-11.0) fL Gran % (36.0-66.0) % Immature Gran % (Auto) (0.00-0.4) % Nucleat RBC Rel Count (0.00-0.1) % Eos # (Auto) (0-0.5) x10^3/uL Immature Gran # (Auto) (0.00-0.03) x10^3u/L Absolute Lymphs (auto) (1.0-4.6) x10^3/uL Absolute Monos (auto) (0.0-1.3) x10^3/uL Absolute Nucleated RBC (0.00-0.01) x10^3u/L Lymphocytes % (24.0-44.0) % Monocytes % (0.0-12.0) % Eosinophils % (0.00-5.0) % Basophils % (0.0-0.4) % Absolute Granulocytes (1.4-6.9) x10^3/uL Basophils # (0-0.4) x10^3/uL Sodium (137-145) mmol/L Potassium (3.5-5.1) mmol/L Chloride (98-107) mmol/L Carbon Dioxide (22-30) mmol/L Anion Gap (5-15) MEQ/L BUN (7-17) mg/dL Creatinine (0.52-1.04) mg/dL Estimated GFR ML/MIN Glucose (74-106) mg/dL Lactic Acid 1.2 (0.4-2.0) Calcium (8.4-10.2) mg/dL Total Bilirubin (0.2-1.3) mg/dL AST (14-36) U/L ALT (0-35) U/L Alkaline Phosphatase (38-126) U/L Ammonia (9-30) umol/L Troponin I 0.083 H* 0.078 H* (0.000-0.034) ng/mL NT-Pro-B Natriuret Pep (0-900) pg/mL Serum Total Protein (6.3-8.2) g/dL Albumin (3.5-5.0) g/dL Urinalys Dipstick Clnc Urine Color (YELLOW) Urine Appearance (CLEAR) Urine pH (5-6) Ur Specific Smilax (1.005-1.025) POC Urine Protein Conf (Negative) Urine Ketones (NEGATIVE) Urine Nitrite (NEGATIVE) Urine Bilirubin (NEGATIVE) Urine Urobilinogen (0-1) mg/dL Urine Leukocytes (NEGATIVE) Urine WBC (Auto) (0-5) /HPF Urine RBC (Auto) (0-2) /HPF U Epithel Cells (Auto) (FEW) /HPF Urine Bacteria (Auto) (NEGATIVE) /HPF Urine RBC (0-5) William/ul Urine Mucus (Auto) (NEGATIVE) /HPF Ur Culture Indicated? Urine Glucose (NEGATIVE) mg/dL Valproic Acid (50-100) ug/mL Monoscreen (Negative) Influenza Type A Ag (NEGATIVE) Influenza Type B Ag (NEGATIVE) RSV (PCR) (Negative) SARS-CoV-2 (PCR) (NEGATIVE) Group A Strep Antibody (NEGATIVE) 12/17/21 12/17/21 12/17/21 Range/Units 04:05 04:05 04:05 WBC 7.1 (4.0-10.5) x10^3/uL RBC 2.52 L (4.1-5.4) x10^6/uL Hgb 8.1 L (12.0-16.0) g/dL Hct 27.0 L (35-47) % MCV 107.1 H (78-100) fL MCH 32.1 H (26-32) pg MCHC 30.0 L (32-36) g/dL RDW 18.7 H (11.5-14.0) % Plt Count 111 L (150-450) x10^3/uL MPV 9.0 (7.5-11.0) fL Gran % 70.5 H (36.0-66.0) % Immature Gran % (Auto) 0.4 (0.00-0.4) % Nucleat RBC Rel Count 0.0 (0.00-0.1) % Eos # (Auto) 0.02 (0-0.5) x10^3/uL Immature Gran # (Auto) 0.03 (0.00-0.03) x10^3u/L Absolute Lymphs (auto) 0.84 L (1.0-4.6) x10^3/uL Absolute Monos (auto) 1.20 (0.0-1.3) x10^3/uL Absolute Nucleated RBC 0.00 (0.00-0.01) x10^3u/L Lymphocytes % 11.8 L (24.0-44.0) % Monocytes % 16.9 H (0.0-12.0) % Eosinophils % 0.3 (0.00-5.0) % Basophils % 0.1 (0.0-0.4) % Absolute Granulocytes 5.00 (1.4-6.9) x10^3/uL Basophils # 0.01 (0-0.4) x10^3/uL Sodium 139 (137-145) mmol/L Potassium 3.8 D (3.5-5.1) mmol/L Chloride 108 H (98-107) mmol/L Carbon Dioxide 24 (22-30) mmol/L Anion Gap 11.3 (5-15) MEQ/L BUN 34 H (7-17) mg/dL Creatinine 0.67 (0.52-1.04) mg/dL Estimated GFR > 60.0 ML/MIN Glucose 112 H (74-106) mg/dL Lactic Acid (0.4-2.0) Calcium 8.5 (8.4-10.2) mg/dL Total Bilirubin 0.70 (0.2-1.3) mg/dL AST 23 (14-36) U/L ALT 11 (0-35) U/L Alkaline Phosphatase 146 H (38-126) U/L Ammonia (9-30) umol/L Troponin I 0.084 H* (0.000-0.034) ng/mL NT-Pro-B Natriuret Pep 3330 H (0-900) pg/mL Serum Total Protein 5.8 L (6.3-8.2) g/dL Albumin 2.6 L (3.5-5.0) g/dL Urinalys Dipstick Clnc Urine Color (YELLOW) Urine Appearance (CLEAR) Urine pH (5-6) Ur Specific Smilax (1.005-1.025) POC Urine Protein Conf (Negative) Urine Ketones (NEGATIVE) Urine Nitrite (NEGATIVE) Urine Bilirubin (NEGATIVE) Urine Urobilinogen (0-1) mg/dL Urine Leukocytes (NEGATIVE) Urine WBC (Auto) (0-5) /HPF Urine RBC (Auto) (0-2) /HPF U Epithel Cells (Auto) (FEW) /HPF Urine Bacteria (Auto) (NEGATIVE) /HPF Urine RBC (0-5) William/ul Urine Mucus (Auto) (NEGATIVE) /HPF Ur Culture Indicated? Urine Glucose (NEGATIVE) mg/dL Valproic Acid (50-100) ug/mL Monoscreen (Negative) Influenza Type A Ag (NEGATIVE) Influenza Type B Ag (NEGATIVE) RSV (PCR) (Negative) SARS-CoV-2 (PCR) (NEGATIVE) Group A Strep Antibody (NEGATIVE) Microbiology 12/16/21 16:42 Urine Culture - Preliminary Clean Catch Midstream NO GROWTH TO DATE - Radiology Impressions Radiology Exams & Impressions: Radiology Procedures Category Date Time Status ABDOMEN AND PELVIS W/0 CONTRAS [CT] Stat Exams 12/16/21 16:27 Completed CHEST 1 VIEW (PORTABLE) Routine Exams 12/16/21 23:41 Completed CHEST 1 VIEW (PORTABLE) Stat Exams 12/16/21 16:26 Completed HEAD WITHOUT CONTRAST [CT] Stat Exams 12/16/21 16:26 Completed - Other Procedures and Tests Respiratory Therapy 12/16/21 20:55 Oxygen Nasal Cannula 2 lpm Respiratory Therapy Assessment DAILY 12/17/21 07:00 Respiratory MDI BID Assessment/Plan (1) Sepsis Current Visit: Yes Status: Acute Qualifiers: Sepsis type: sepsis due to unspecified organism Hepatic coma status: without hepatic coma Severe sepsis shock status: with septic shock Assessment & Plan: Much improved this morning. On Levaquin and merropenem day #2. Almost off the levophed. Continue IVF at 75cc/hr. Continue holding po BP meds and lasix until her BP increases further and is stable. (2) Pneumonia Current Visit: Yes Status: Acute Qualifiers: Pneumonia type: due to unspecified organism Laterality: bilateral Lung location: lower lobe of lung Qualified Code(s): J18.9 - Pneumonia, unspecified organism Code(s): J18.9 - PNEUMONIA, UNSPECIFIED ORGANISM (3) UTI (urinary tract infection) Current Visit: Yes Status: Acute Qualifiers: Urinary tract infection type: acute cystitis Hematuria presence: without hematuria Qualified Code(s): N30.00 - Acute cystitis without hematuria Assessment & Plan: on meropenem, cx pending Code(s): N39.0 - URINARY TRACT INFECTION, SITE NOT SPECIFIED (4) Hypotension Current Visit: Yes Status: Resolved Qualifiers: Hypotension type: other hypotension type Qualified Code(s): I95.89 - Other hypotension Code(s): I95.9 - HYPOTENSION, UNSPECIFIED (5) S/P hip arthroscopy Current Visit: Yes Status: Acute Assessment & Plan: 3 weeks ago, dressing still present. Unsure who surgeon is and when she is supposed to f/u - Code(s): Z98.890 - OTHER SPECIFIED POSTPROCEDURAL STATES (6) Dementia Current Visit: Yes Status: Chronic Qualifiers: Dementia type: unspecified type Dementia behavioral disturbance: without behavioral disturbance Qualified Code(s): F03.90 - Unspecified dementia without behavioral disturbance Code(s): F03.90 - UNSPECIFIED DEMENTIA WITHOUT BEHAVIORAL DISTURBANCE (7) CHF (congestive heart failure) Current Visit: Yes Status: Chronic Qualifiers: Heart failure type: unspecified Heart failure chronicity: unspecified Qualified Code(s): I50.9 - Heart failure, unspecified Code(s): I50.9 - HEART FAILURE, UNSPECIFIED (8) Seizure disorder Current Visit: Yes Status: Chronic Assessment & Plan: change keppra and depakote back to Po as she seems able to tolerate it now. Code(s): G40.909 - EPILEPSY, UNSP, NOT INTRACTABLE, WITHOUT STATUS EPILEPTICUS
[2021-12-17] MEDS ORDERED: Dulcolax 10 MG SUPP RC PRN (12:44)
[2021-12-17] MEDS ORDERED: MILK OF MAGNESIA 30 ML PO PRN (12:44)
[2021-12-17] MEDS ORDERED: TYLENOL EXTRA STRENGTH 500 MG PO PRN (12:44)
[2021-12-17] MEDS ORDERED: PHARMACY DOSING REQUEST MC ONE (13:02)
[2021-12-17] MEDS: Merrem 1 GM in Sodium Chloride 100ML MINI-BAG PLUS 100 ML IV SCH (13:51)
[2021-12-17] MEDS: KEPPRA PO SCH (21:33)
[2021-12-17] MEDS ORDERED: NON-FORMULARY ITEM (Budesonide/Formoterol Fumarate [Budesonide-Formoterol 160-4.5] 10.2 GM IH SCH (22:00)
[2021-12-17] MEDS ORDERED: Ecotrin 325 MG PO SCH (22:00)
[2021-12-18] MEDS: Merrem 1 GM in Sodium Chloride 100ML MINI-BAG PLUS 100 ML IV SCH ×2 (01:43→13:25)
[2021-12-18] MEDS: Depacon 500 MG/5 ML*** 500 MG in Sodium Chloride 0.9% 100 ML IV SCH ×3 (05:22→17:09)
[2021-12-18] MEDS: Advair Hfa 230/21 Mcg COMMON CANISTER IH SCH ×2 (06:41→18:48)
[2021-12-18] MEDS: KEPPRA PO SCH ×2 (07:39→21:30)
[2021-12-18] MEDS: SUBLIMAZE 100 MCG/2 ML IV PRN (07:40)
[2021-12-18 07:43] LABS: Hematocrit 23.6 % (35-47); Hemoglobin 7.1 g/dL (12.0-16.0); Mean Cell Volume 106.8 fL (78-100); Mean Corpuscular Hemoglobin 32.1 pg (26-32); Mean Corpuscular Hgb Concent. 30.1 g/dL (32-36); Mean Platelet Volume 9.3 fL (7.5-11.0); Platelet Count 105 x10^3/uL (150-450); Red Blood Count 2.21 x10^6/uL (4.1-5.4); Red Cell Distribution Width 18.4 % (11.5-14.0); White Blood Count 4.3 x10^3/uL (4.0-10.5)
[2021-12-18 07:48] LABS: ANION GAP 6.8 MEQ/L (5-15); BLOOD UREA NITROGEN 13 mg/dL (7-17); CHLORIDE 108 mmol/L (98-107); Calcium 8.1 mg/dL (8.4-10.2); Carbon Dioxide 27 mmol/L (22-30); Creatinine 1 0.41 mg/dL (0.52-1.04); EST GLOMERULAR FILTRATION RATE > 60.0 ML/MIN; Glucose 94 mg/dL (74-106); Potassium 3.2 mmol/L (3.5-5.1); SODIUM 139 mmol/L (137-145)
--- NOTE | 2021-12-18 12:14 | PCM.NOTE ---
Date and Time: 12/18/21 1209 Subjective Assessment: Pt is more awake today. Continues to be confused. Has pain when being re- adjusted by staff. Tolerating po; ate well yesterday but about 25% of breakfast this morning. Levophed was stopped about 2 am. Pt tells me "I want to go home," and when asked where she is, says, "I don't know which one," but cannot elaborate on that. - Review of Systems All Other Systems: Unable due to dementia Objective Exam General Appearance: mild distress, alert Neurologic Exam: disoriented Skin Exam: normal color, warm, dry, No rash Wound Assessment: Skin/Wound Assessment Wound/Incision Assessment Start: 12/16/21 21:07 Text: Status: Active Freq: Q6H Protocol: Document 12/18/21 07:34 SOURAV (Rec: 12/18/21 07:35 SOURAV [id number]) Wound/Incision Assessment Right Hip Wound Assessment Shift Assessment Wound Type Incision Dressing Status Dry & Intact Comment aquacel surgical dressing to right hip CDI---remains true Wound Photo Photo Taken No Eye Exam: eyes nml inspection Ears, Nose, Throat Exam: moist mucous membranes Neck Exam: normal inspection Respiratory Exam: normal breath sounds, lungs clear, No crackles/rales, No rhonchi, No wheezing Cardiovascular Exam: regular rate/rhythm, normal heart sounds, No murmur Gastrointestinal/Abdomen Exam: soft, normal bowel sounds, No tenderness, No distention, No mass, No guarding, No rebound Extremity Exam: No pedal edema, No swelling OBJECTIVE DATA Vital Signs: Vital Signs - 24 hr Temp Pulse Resp BP Pulse Ox 12/18/21 11:00 98.6 F 65 14 122/56 90 L 12/18/21 07:46 100 F 77 16 119/69 95 12/18/21 07:34 86 12/18/21 07:24 100 F 86 23 118/73 98 12/18/21 06:52 100.0 F 74 24 121/62 99 12/18/21 06:41 105 H 16 100 12/18/21 06:00 100.2 F 84 34 H 120/67 98 12/18/21 05:00 100.4 F 85 24 121/62 99 12/18/21 04:45 74 21 128/60 100 12/18/21 04:31 78 22 99/55 99 12/18/21 04:00 100.4 F 90 23 124/57 99 12/18/21 03:31 90 19 131/76 100 12/18/21 03:16 84 20 130/65 100 12/18/21 02:58 100.4 F 74 24 142/75 97 12/18/21 02:04 100.6 F 75 24 149/89 100 12/18/21 01:06 100.8 F 79 24 123/62 98 12/18/21 00:55 100.8 F 78 23 132/78 99 12/17/21 23:52 84 12/17/21 23:42 100.9 F 94 H 20 159/69 99 12/17/21 22:47 100.8 F 92 H 21 158/81 99 12/17/21 21:53 100.6 F 82 18 104/53 100 12/17/21 21:00 100.8 F 72 20 130/78 99 12/17/21 20:00 79 12/17/21 19:49 100.6 F 72 18 120/54 98 12/17/21 19:00 100.6 F 74 19 138/71 99 12/17/21 18:48 91 H 16 98 12/17/21 18:00 100.4 F 69 19 121/58 12/17/21 17:00 100.4 F 85 20 110/53 94 L 12/17/21 16:00 100.2 F 94 H 20 104/94 95 12/17/21 15:00 100.2 F 93 H 22 128/74 89 L 12/17/21 14:00 100.0 F 81 19 130/78 12/17/21 13:00 86 23 102/81 91 L Pain Assessment - Last Documented Pain Intensity 8 Pain Scale Used 0-10 Pain Scale Intake and Output: Intake & Output 12/16/21 12/17/21 12/18/21 12/19/21 11:59 11:59 11:59 11:59 Intake Total 1312 3629 Output Total 1550 1550 Balance -238 2079 Weight 73.5 kg 74.5 kg Lab Results: Lab Results-Last 24 Hours 12/18/21 12/18/21 Range/Units 07:25 07:25 WBC 4.3 (4.0-10.5) x10^3/uL RBC 2.21 L (4.1-5.4) x10^6/uL Hgb 7.1 L (12.0-16.0) g/dL Hct 23.6 L (35-47) % MCV 106.8 H (78-100) fL MCH 32.1 H (26-32) pg MCHC 30.1 L (32-36) g/dL RDW 18.4 H (11.5-14.0) % Plt Count 105 L (150-450) x10^3/uL MPV 9.3 (7.5-11.0) fL Sodium 139 (137-145) mmol/L Potassium 3.2 L (3.5-5.1) mmol/L Chloride 108 H (98-107) mmol/L Carbon Dioxide 27 (22-30) mmol/L Anion Gap 6.8 (5-15) MEQ/L BUN 13 (7-17) mg/dL Creatinine 0.41 L (0.52-1.04) mg/dL Estimated GFR > 60.0 ML/MIN Glucose 94 (74-106) mg/dL Calcium 8.1 L (8.4-10.2) mg/dL Radiology Exams: Radiology Procedures Category Date Time Status ABDOMEN AND PELVIS W/0 CONTRAS [CT] Stat Exams 12/16/21 16:27 Completed CHEST 1 VIEW (PORTABLE) Routine Exams 12/16/21 23:41 Completed CHEST 1 VIEW (PORTABLE) Stat Exams 12/16/21 16:26 Completed HEAD WITHOUT CONTRAST [CT] Stat Exams 12/16/21 16:26 Completed Assessment/Plan (1) Sepsis Current Visit: Yes Status: Acute Qualifiers: Sepsis type: sepsis due to unspecified organism Hepatic coma status: without hepatic coma Severe sepsis shock status: with septic shock Assessment & Plan: Much improved, off the levophed drip. Continue merrem, day #2. (2) Anemia Current Visit: Yes Status: Acute Qualifiers: Anemia type: unspecified type Qualified Code(s): D64.9 - Anemia, unspecified Assessment & Plan: transfuse 2 units PRBC, as her hgb is 7.1 and she has cardiac disease. Code(s): D64.9 - ANEMIA, UNSPECIFIED (3) Pneumonia Current Visit: Yes Status: Acute Qualifiers: Pneumonia type: due to unspecified organism Laterality: bilateral Lung location: lower lobe of lung Qualified Code(s): J18.9 - Pneumonia, unspecified organism Code(s): J18.9 - PNEUMONIA, UNSPECIFIED ORGANISM (4) UTI (urinary tract infection) Current Visit: Yes Status: Acute Qualifiers: Urinary tract infection type: acute cystitis Hematuria presence: without hematuria Qualified Code(s): N30.00 - Acute cystitis without hematuria Code(s): N39.0 - URINARY TRACT INFECTION, SITE NOT SPECIFIED (5) Hypotension Current Visit: Yes Status: Resolved Qualifiers: Hypotension type: other hypotension type Qualified Code(s): I95.89 - Other hypotension Assessment & Plan: resolved; will restart home meds when her bp increases. Code(s): I95.9 - HYPOTENSION, UNSPECIFIED (6) S/P hip arthroscopy Current Visit: Yes Status: Chronic Assessment & Plan: by Dr. Mead. Will find out what follow up she needs, and when to start dressing changes. Code(s): Z98.890 - OTHER SPECIFIED POSTPROCEDURAL STATES (7) Dementia Current Visit: Yes Status: Chronic Qualifiers: Dementia type: unspecified type Dementia behavioral disturbance: without behavioral disturbance Qualified Code(s): F03.90 - Unspecified dementia without behavioral disturbance Code(s): F03.90 - UNSPECIFIED DEMENTIA WITHOUT BEHAVIORAL DISTURBANCE (8) CHF (congestive heart failure) Current Visit: Yes Status: Chronic Qualifiers: Heart failure type: unspecified Heart failure chronicity: unspecified Qualified Code(s): I50.9 - Heart failure, unspecified Code(s): I50.9 - HEART FAILURE, UNSPECIFIED (9) Seizure disorder Current Visit: Yes Status: Chronic Code(s): G40.909 - EPILEPSY, UNSP, NOT INTRACTABLE, WITHOUT STATUS EPILEPTICUS
[2021-12-18 12:15] LABS: ABO TYPING O; Antibody Screen NEGATIVE (NEGATIVE); RH TYPING POSITIVE
[2021-12-18 12:18] LABS: CROSS MATCH (PRBC) COMPATIBLE (COMPATIBLE)
[2021-12-18] MEDS: Sodium Chloride 0.9% 1000 ML 1,000 ML IV SCH (12:36)
[2021-12-18] MEDS: HYDROCODONE-ACETAMIN 10-325 MG PO PRN (13:20)
[2021-12-18] MEDS: Klor Con PO SCH ×2 (14:29→21:30)
[2021-12-18 18:24] LABS: Hematocrit 31.9 % (35-47)
[2021-12-19] MEDS: Depacon 500 MG/5 ML*** 500 MG in Sodium Chloride 0.9% 100 ML IV SCH ×2 (00:04→06:02)
[2021-12-19] MEDS: Merrem 1 GM in Sodium Chloride 100ML MINI-BAG PLUS 100 ML IV SCH (01:30)
[2021-12-19] MEDS: Sodium Chloride 0.9% 1000 ML 1,000 ML IV SCH (01:31)
[2021-12-19 05:08] LABS: Absolute Neutrophil Ct (ANC) 3.46 x10^3/uL (1.4-6.9); Basophil (Absolute #) 0.01 x10^3/uL (0-0.4); Eosinophil % 1.1 % (0.00-5.0); Eosinophil (Absolute #) 0.06 x10^3/uL (0-0.5); Hematocrit 32.8 % (35-47); Hemoglobin 10.6 g/dL (12.0-16.0); Lymphocyte (Absolute #) 0.89 x10^3/uL (1.0-4.6); Lymphocytes % 16.6 % (24.0-44.0); Mean Cell Volume 95.3 fL (78-100); Mean Corpuscular Hemoglobin 30.8 pg (26-32); Mean Corpuscular Hgb Concent. 32.3 g/dL (32-36); Mean Platelet Volume 9.4 fL (7.5-11.0); Monocyte (Absolute #) 0.89 x10^3/uL (0.0-1.3); Monocytes % 16.6 % (0.0-12.0); Neutrophil % 64.4 % (36.0-66.0); Platelet Count 139 x10^3/uL (150-450); Red Blood Count 3.44 x10^6/uL (4.1-5.4); Red Cell Distribution Width 21.9 % (11.5-14.0); White Blood Count 5.4 x10^3/uL (4.0-10.5)
[2021-12-19 05:29] LABS: ALBUMIN 2.4 g/dL (3.5-5.0); ALKALINE PHOSPHATASE 154 U/L (38-126); ANION GAP 9.1 MEQ/L (5-15); BLOOD UREA NITROGEN 11 mg/dL (7-17); CHLORIDE 109 mmol/L (98-107); Calcium 8.3 mg/dL (8.4-10.2); Carbon Dioxide 25 mmol/L (22-30); Creatinine 1 0.39 mg/dL (0.52-1.04); EST GLOMERULAR FILTRATION RATE > 60.0 ML/MIN; Glucose 91 mg/dL (74-106); Potassium 3.2 mmol/L (3.5-5.1); SGOT/AST 27 U/L (14-36); SGPT/ALT 18 U/L (0-35); SODIUM 140 mmol/L (137-145); Total Protein 5.5 g/dL (6.3-8.2)
[2021-12-19] MEDS: HYDROCODONE-ACETAMIN 10-325 MG PO PRN ×3 (06:30→21:41)
[2021-12-19] MEDS: Advair Hfa 230/21 Mcg COMMON CANISTER IH SCH ×2 (07:15→19:35)
--- NOTE | 2021-12-19 08:28 | PCM.NOTE ---
Date and Time: 12/19/21822 Subjective Assessment: Pt continues to be awake but confused. Cannot tell me where she is. Does tell me she doesn't want a shot. - Review of Systems All Other Systems: Unable due to dementia Objective Exam General Appearance: no apparent distress, obese Neurologic Exam: disoriented, confusion Skin Exam: normal color, warm, dry, No rash Wound Assessment: Skin/Wound Assessment Wound/Incision Assessment Start: 12/16/21 21:07 Text: Status: Active Freq: Q6H Protocol: Document 12/19/21 02:00 RN (Rec: 12/19/21 03:07 RN [id number]) Wound/Incision Assessment Right Hip Wound Assessment Shift Assessment Wound Type Incision Dressing Status Dry & Intact Comment Aquacel dressing in place Wound Photo Photo Taken No Eye Exam: eyes nml inspection Ears, Nose, Throat Exam: moist mucous membranes Neck Exam: normal inspection Respiratory Exam: lungs clear, diminished breath sounds (good air exchange), No crackles/rales, No rhonchi, No wheezing Cardiovascular Exam: regular rate/rhythm, normal heart sounds, No murmur Gastrointestinal/Abdomen Exam: soft, normal bowel sounds, No tenderness, No distention, No mass, No guarding, No rebound Extremity Exam: No pedal edema, No swelling OBJECTIVE DATA Vital Signs: Vital Signs - 24 hr Temp Pulse Resp BP Pulse Ox 12/19/21 08:07 82 20 94 L 12/19/21 08:00 100.6 F 90 26 H 169/102 89 L 12/19/21 04:00 100.4 F 76 19 158/71 97 12/19/21 00:01 83 12/18/21 23:35 99.7 F 82 24 159/77 97 12/18/21 19:51 74 12/18/21 18:55 99.0 F 84 23 144/77 99 12/18/21 18:48 73 20 92 L 12/18/21 16:00 98.8 F 74 13 167/74 96 12/18/21 12:00 65 12/18/21 11:00 98.6 F 65 14 122/56 90 L Pain Assessment - Last Documented Pain Intensity 8 Pain Scale [facility] Intake and Output: Intake & Output 12/16/21 12/17/21 12/18/21 12/19/21 11:59 11:59 11:59 11:59 Intake Total 2862 1494 0371 Output Total 5491 1550 850 Balance -238 1 1937 Weight 73.5 kg 74.5 kg 74.5 kg Lab Results: Lab Results-Last 24 Hours 12/18/21 12/18/21 12/18/21 Range/Units 07:25 10:34 10:34 WBC 4.3 (4.0-10.5) x10^3/uL RBC 2.21 L (4.1-5.4) x10^6/uL Hgb 7.1 L (12.0-16.0) g/dL Hct 23.6 L (35-47) % MCV 106.8 H (78-100) fL MCH 32.1 H (26-32) pg MCHC 30.1 L (32-36) g/dL RDW 18.4 H (11.5-14.0) % Plt Count 105 L (150-450) x10^3/uL MPV 9.3 (7.5-11.0) fL Gran % (36.0-66.0) % Immature Gran % (Auto) (0.00-0.4) % Nucleat RBC Rel Count (0.00-0.1) % Eos # (Auto) (0-0.5) x10^3/uL Immature Gran # (Auto) (0.00-0.03) x10^3u/L Absolute Lymphs (auto) (1.0-4.6) x10^3/uL Absolute Monos (auto) (0.0-1.3) x10^3/uL Absolute Nucleated RBC (0.00-0.01) x10^3u/L Lymphocytes % (24.0-44.0) % Monocytes % (0.0-12.0) % Eosinophils % (0.00-5.0) % Basophils % (0.0-0.4) % Absolute Granulocytes (1.4-6.9) x10^3/uL Basophils # (0-0.4) x10^3/uL Smear Path Review Pending Sodium (137-145) mmol/L Potassium (3.5-5.1) mmol/L Chloride (98-107) mmol/L Carbon Dioxide (22-30) mmol/L Anion Gap (5-15) MEQ/L BUN (7-17) mg/dL Creatinine (0.52-1.04) mg/dL Estimated GFR ML/MIN Glucose (74-106) mg/dL Calcium (8.4-10.2) mg/dL Total Bilirubin (0.2-1.3) mg/dL AST (14-36) U/L ALT (0-35) U/L Alkaline Phosphatase (38-126) U/L Serum Total Protein (6.3-8.2) g/dL Albumin (3.5-5.0) g/dL ABO Group O Rh Factor POSITIVE Antibody Screen NEGATIVE (NEGATIVE) Crossmatch COMPATIBLE COMPATIBLE (COMPATIBLE) 12/18/21 12/19/21 12/19/21 Range/Units 18:23 04:25 04:25 WBC 5.4 (4.0-10.5) x10^3/uL RBC 3.44 L (4.1-5.4) x10^6/uL Hgb 10.0 L D 10.6 L (12.0-16.0) g/dL Hct 31.9 L 32.8 L (35-47) % MCV 95.3 D (78-100) fL MCH 30.8 (26-32) pg MCHC 32.3 (32-36) g/dL RDW 21.9 H (11.5-14.0) % Plt Count 139 L (150-450) x10^3/uL MPV 9.4 (7.5-11.0) fL Gran % 64.4 (36.0-66.0) % Immature Gran % (Auto) 1.1 H (0.00-0.4) % Nucleat RBC Rel Count 0.0 (0.00-0.1) % Eos # (Auto) 0.06 (0-0.5) x10^3/uL Immature Gran # (Auto) 0.06 H (0.00-0.03) x10^3u/L Absolute Lymphs (auto) 0.89 L (1.0-4.6) x10^3/uL Absolute Monos (auto) 0.89 (0.0-1.3) x10^3/uL Absolute Nucleated RBC 0.00 (0.00-0.01) x10^3u/L Lymphocytes % 16.6 L (24.0-44.0) % Monocytes % 16.6 H (0.0-12.0) % Eosinophils % 1.1 (0.00-5.0) % Basophils % 0.2 (0.0-0.4) % Absolute Granulocytes 3.46 (1.4-6.9) x10^3/uL Basophils # 0.01 (0-0.4) x10^3/uL Smear Path Review Sodium 140 (137-145) mmol/L Potassium 3.2 L (3.5-5.1) mmol/L Chloride 109 H (98-107) mmol/L Carbon Dioxide 25 (22-30) mmol/L Anion Gap 9.1 (5-15) MEQ/L BUN 11 (7-17) mg/dL Creatinine 0.39 L (0.52-1.04) mg/dL Estimated GFR > 60.0 ML/MIN Glucose 91 (74-106) mg/dL Calcium 8.3 L (8.4-10.2) mg/dL Total Bilirubin 0.70 (0.2-1.3) mg/dL AST 27 (14-36) U/L ALT 18 (0-35) U/L Alkaline Phosphatase 154 H (38-126) U/L Serum Total Protein 5.5 L (6.3-8.2) g/dL Albumin 2.4 L (3.5-5.0) g/dL ABO Group Rh Factor Antibody Screen (NEGATIVE) Crossmatch (COMPATIBLE) Assessment/Plan (1) Sepsis Current Visit: Yes Status: Resolved Qualifiers: Sepsis type: sepsis due to unspecified organism Hepatic coma status: without hepatic coma Severe sepsis shock status: with septic shock Assessment & Plan: BP is good, will restart her BP meds. (2) Anemia Current Visit: Yes Status: Acute Qualifiers: Anemia type: unspecified type Qualified Code(s): D64.9 - Anemia, unspecified Assessment & Plan: Hgb 10.6 after 2 units PRBC. Code(s): D64.9 - ANEMIA, UNSPECIFIED (3) Pneumonia Current Visit: Yes Status: Acute Qualifiers: Pneumonia type: due to unspecified organism Laterality: bilateral Lung location: lower lobe of lung Qualified Code(s): J18.9 - Pneumonia, unspecified organism Assessment & Plan: on meropenem day #3. Code(s): J18.9 - PNEUMONIA, UNSPECIFIED ORGANISM (4) UTI (urinary tract infection) Current Visit: Yes Status: Acute Qualifiers: Urinary tract infection type: acute cystitis Hematuria presence: without hematuria Qualified Code(s): N30.00 - Acute cystitis without hematuria Assessment & Plan: Ucx neg. Code(s): N39.0 - URINARY TRACT INFECTION, SITE NOT SPECIFIED (5) Hypotension Current Visit: Yes Status: Resolved Qualifiers: Hypotension type: other hypotension type Qualified Code(s): I95.89 - Other hypotension Code(s): I95.9 - HYPOTENSION, UNSPECIFIED (6) S/P hip arthroscopy Current Visit: Yes Status: Chronic Code(s): Z98.890 - OTHER SPECIFIED POSTPROCEDURAL STATES (7) Dementia Current Visit: Yes Status: Chronic Qualifiers: Dementia type: unspecified type Dementia behavioral disturbance: without behavioral disturbance Qualified Code(s): F03.90 - Unspecified dementia without behavioral disturbance Code(s): F03.90 - UNSPECIFIED DEMENTIA WITHOUT BEHAVIORAL DISTURBANCE (8) CHF (congestive heart failure) Current Visit: Yes Status: Chronic Qualifiers: Heart failure type: unspecified Heart failure chronicity: unspecified Qualified Code(s): I50.9 - Heart failure, unspecified Code(s): I50.9 - HEART FAILURE, UNSPECIFIED (9) Seizure disorder Current Visit: Yes Status: Chronic Code(s): G40.909 - EPILEPSY, UNSP, NOT INTRACTABLE, WITHOUT STATUS EPILEPTICUS (10) Hypokalemia Current Visit: Yes Status: Acute Assessment & Plan: increased potassium to 20 mg po BID. Code(s): E87.6 - HYPOKALEMIA
[2021-12-19] MEDS ORDERED: Merrem IV ONE (08:34)
[2021-12-19] MEDS: Klor Con PO SCH ×2 (09:49→21:43)
[2021-12-19] MEDS: Levofloxacin 500 MG Tablet PO SCH (09:49)
[2021-12-19] MEDS: Zestril 5 MG PO SCH (09:50)
[2021-12-19] MEDS: KEPPRA PO SCH ×2 (09:50→21:41)
[2021-12-19] MEDS: Coreg 3.125 MG PO SCH ×2 (09:50→21:42)
[2021-12-19] MEDS: SUBLIMAZE 100 MCG/2 ML IV PRN ×2 (16:40→23:58)
[2021-12-20] MEDS: SUBLIMAZE 100 MCG/2 ML IV PRN ×3 (02:35→09:43)
[2021-12-20] MEDS: PROVENTIL 2.5 MG/3 ML NEB IH PRN ×2 (04:00→09:05)
[2021-12-20 04:47] LABS: Absolute Neutrophil Ct (ANC) 2.71 x10^3/uL (1.4-6.9); Basophil (Absolute #) 0.02 x10^3/uL (0-0.4); Eosinophil % 1.4 % (0.00-5.0); Eosinophil (Absolute #) 0.07 x10^3/uL (0-0.5); Hematocrit 31.3 % (35-47); Hemoglobin 9.9 g/dL (12.0-16.0); Lymphocyte (Absolute #) 1.32 x10^3/uL (1.0-4.6); Lymphocytes % 26.7 % (24.0-44.0); Mean Cell Volume 97.5 fL (78-100); Mean Corpuscular Hemoglobin 30.8 pg (26-32); Mean Corpuscular Hgb Concent. 31.6 g/dL (32-36); Mean Platelet Volume 9.2 fL (7.5-11.0); Monocyte (Absolute #) 0.75 x10^3/uL (0.0-1.3); Monocytes % 15.2 % (0.0-12.0); Neutrophil % 54.9 % (36.0-66.0); Platelet Count 162 x10^3/uL (150-450); Red Blood Count 3.21 x10^6/uL (4.1-5.4); Red Cell Distribution Width 21.4 % (11.5-14.0); White Blood Count 4.9 x10^3/uL (4.0-10.5)
[2021-12-20 05:10] LABS: ALBUMIN 2.3 g/dL (3.5-5.0); ALKALINE PHOSPHATASE 156 U/L (38-126); BLOOD UREA NITROGEN 12 mg/dL (7-17); CHLORIDE 108 mmol/L (98-107); Calcium 8.2 mg/dL (8.4-10.2); Carbon Dioxide 26 mmol/L (22-30); Creatinine 1 0.41 mg/dL (0.52-1.04); EST GLOMERULAR FILTRATION RATE > 60.0 ML/MIN; Glucose 85 mg/dL (74-106); Potassium 3.7 mmol/L (3.5-5.1); SGOT/AST 27 U/L (14-36); SGPT/ALT 18 U/L (0-35); SODIUM 140 mmol/L (137-145); Total Protein 5.3 g/dL (6.3-8.2)
[2021-12-20] MEDS: Advair Hfa 230/21 Mcg COMMON CANISTER IH SCH ×2 (05:10→19:30)
[2021-12-20] MEDS: HYDROCODONE-ACETAMIN 10-325 MG PO PRN ×3 (05:49→21:48)
[2021-12-20] MEDS: Klor Con PO SCH ×2 (07:49→21:49)
[2021-12-20] MEDS: Levofloxacin 500 MG Tablet PO SCH (07:50)
[2021-12-20] MEDS: KEPPRA PO SCH ×2 (07:50→21:49)
[2021-12-20] MEDS: Coreg 3.125 MG PO SCH ×2 (07:54→21:47)
[2021-12-20] MEDS: Zestril 5 MG PO SCH (07:54)
[2021-12-20] MEDS ORDERED: PHARMACY DOSING REQUIRED: VANCOMYCIN IV STA (08:44)
--- NOTE | 2021-12-20 08:52 | PCM.NOTE ---
Date and Time: 12/20/21846 Subjective Assessment: pt's BP have been from 100s up to 150s. Last temp 100.6 at 0800 yesterday. She is confused, but conversant. Does not always answer questions appropriately. - Review of Systems Constitutional: No Fever Abdominal/Gastrointestinal: No Vomiting All Other Systems: Unable due to dementia Objective Exam General Appearance: no apparent distress, obese Neurologic Exam: alert, cooperative, disoriented, confusion Skin Exam: normal color, warm, dry, No rash Wound Assessment: Skin/Wound Assessment Wound/Incision Assessment Start: 12/16/21 21:07 Text: Status: Active Freq: Q6H Protocol: Document 12/20/21 02:00 RG (Rec: 12/20/21 03:28 RG [id number]) Wound/Incision Assessment Right Hip Wound Assessment Shift Assessment Wound Type Incision Dressing Status Dry & Intact,Reinforced Comment Aquacel dressing in place Wound Photo Photo Taken No Eye Exam: eyes nml inspection Ears, Nose, Throat Exam: moist mucous membranes Neck Exam: normal inspection Respiratory Exam: lungs clear, diminished breath sounds (good air exchange), No crackles/rales, No rhonchi, No wheezing Cardiovascular Exam: regular rate/rhythm, normal heart sounds, No murmur Gastrointestinal/Abdomen Exam: soft, No normal bowel sounds (hypoactive but present), No tenderness, No distention, No mass, No guarding, No rebound Extremity Exam: No pedal edema OBJECTIVE DATA Vital Signs: Vital Signs - 24 hr Temp Pulse Resp BP Pulse Ox 12/20/21 08:00 124/68 12/20/21 05:11 76 16 94 L 12/20/21 04:00 73 20 95 12/20/21 03:55 99.1 F 82 17 127/70 95 12/19/21 23:58 99.5 F 90 19 124/71 94 L 12/19/21 19:35 99 H 20 95 12/19/21 19:12 99.5 F 86 14 146/80 95 12/19/21 16:00 98.6 F 71 12 131/72 93 L 12/19/21 12:00 98.8 F 76 26 H 135/105 90 L Pain Assessment - Last Documented Pain Intensity 8 Pain Scale Used [facility] Intake and Output: Intake & Output 12/17/21 12/18/21 12/19/2112/20/22 11:59 11:59 11:59 11:59 Intake Total 1312 7809 2787 1288 Output Total 1550 0758 882 2361 Balance -238 0649 1937 38 Weight 73.5 kg 74.5 kg 75 kg 76.1 kg Lab Results: Lab Results-Last 24 Hours 12/20/21 12/20/21 Range/Units 04:43 04:43 WBC 4.9 (4.0-10.5) x10^3/uL RBC 3.21 L (4.1-5.4) x10^6/uL Hgb 9.9 L (12.0-16.0) g/dL Hct 31.3 L (35-47) % MCV 97.5 (78-100) fL MCH 30.8 (26-32) pg MCHC 31.6 L (32-36) g/dL RDW 21.4 H (11.5-14.0) % Plt Count 162 (150-450) x10^3/uL MPV 9.2 (7.5-11.0) fL Gran % 54.9 (36.0-66.0) % Immature Gran % (Auto) 1.4 H (0.00-0.4) % Nucleat RBC Rel Count 0.0 (0.00-0.1) % Eos # (Auto) 0.07 (0-0.5) x10^3/uL Immature Gran # (Auto) 0.07 H (0.00-0.03) x10^3u/L Absolute Lymphs (auto) 1.32 (1.0-4.6) x10^3/uL Absolute Monos (auto) 0.75 (0.0-1.3) x10^3/uL Absolute Nucleated RBC 0.00 (0.00-0.01) x10^3u/L Lymphocytes % 26.7 (24.0-44.0) % Monocytes % 15.2 H (0.0-12.0) % Eosinophils % 1.4 (0.00-5.0) % Basophils % 0.4 (0.0-0.4) % Absolute Granulocytes 2.71 (1.4-6.9) x10^3/uL Basophils # 0.02 (0-0.4) x10^3/uL Sodium 140 (137-145) mmol/L Potassium 3.7 (3.5-5.1) mmol/L Chloride 108 H (98-107) mmol/L Carbon Dioxide 26 (22-30) mmol/L Anion Gap 9.0 (5-15) MEQ/L BUN 12 (7-17) mg/dL Creatinine 0.41 L (0.52-1.04) mg/dL Estimated GFR > 60.0 ML/MIN Glucose 85 (74-106) mg/dL Calcium 8.2 L (8.4-10.2) mg/dL Total Bilirubin 0.40 (0.2-1.3) mg/dL AST 27 (14-36) U/L ALT 18 (0-35) U/L Alkaline Phosphatase 156 H (38-126) U/L Serum Total Protein 5.3 L (6.3-8.2) g/dL Albumin 2.3 L (3.5-5.0) g/dL Multi-Disciplinary Progress Notes: Multi-Disciplinary Progress Notes 12/19/21 13:12 Case Management Note by Krystle Grajeda STARTING PRECERT FOR PATIENT TO RETURN TO THEIR FACILITY Initialized on 12/19/21 13:12 - END OF NOTE Assessment/Plan (1) Sepsis Current Visit: Yes Status: Resolved Qualifiers: Sepsis type: sepsis due to unspecified organism Hepatic coma status: without hepatic coma Severe sepsis shock status: with septic shock Assessment & Plan: Her urine and blood cultures positive now for S. epidermis, although the susceptibilities are different (blood is resistant to levaquin, which is on day #2 today). Stop levaquin - start vancomycin. (2) Anemia Current Visit: Yes Status: Acute Qualifiers: Anemia type: unspecified type Qualified Code(s): D64.9 - Anemia, unspecified Assessment & Plan: continue to observe. Code(s): D64.9 - ANEMIA, UNSPECIFIED (3) Pneumonia Current Visit: Yes Status: Acute Qualifiers: Pneumonia type: due to unspecified organism Laterality: bilateral Lung location: lower lobe of lung Qualified Code(s): J18.9 - Pneumonia, unspecified organism Code(s): J18.9 - PNEUMONIA, UNSPECIFIED ORGANISM (4) UTI (urinary tract infection) Current Visit: Yes Status: Acute Qualifiers: Urinary tract infection type: acute cystitis Hematuria presence: without hematuria Qualified Code(s): N30.00 - Acute cystitis without hematuria Code(s): N39.0 - URINARY TRACT INFECTION, SITE NOT SPECIFIED (5) S/P hip arthroscopy Current Visit: Yes Status: Chronic Assessment & Plan: Has appt with Dr. Mead tomorrow, so RN will discuss with his office if we can d/c dressing/rebecca tomorrow, ,etc. Code(s): Z98.890 - OTHER SPECIFIED POSTPROCEDURAL STATES (6) Dementia Current Visit: Yes Status: Chronic Qualifiers: Dementia type: unspecified type Dementia behavioral disturbance: without behavioral disturbance Qualified Code(s): F03.90 - Unspecified dementia wi thout behavioral disturbance Code(s): F03.90 - UNSPECIFIED DEMENTIA WITHOUT BEHAVIORAL DISTURBANCE (7) CHF (congestive heart failure) Current Visit: Yes Status: Chronic Qualifiers: Heart failure type: unspecified Heart failure chronicity: unspecified Qualified Code(s): I50.9 - Heart failure, unspecified Code(s): I50.9 - HEART FAILURE, UNSPECIFIED (8) Seizure disorder Current Visit: Yes Status: Chronic Code(s): G40.909 - EPILEPSY, UNSP, NOT INTRACTABLE, WITHOUT STATUS EPILEPTICUS (9) Hypokalemia Current Visit: Yes Status: Resolved Code(s): E87.6 - HYPOKALEMIA (10) Acute renal failure Current Visit: Yes Status: Resolved Qualifiers: Acute renal failure type: unspecified Qualified Code(s): N17.9 - Acute kidney failure, unspecified
[2021-12-20] MEDS: VANCOMYCIN 1 GRAM/200 ML BAG 1 GM/200 ML PIGGYBACK IV SCH ×2 (09:32→21:52)
[2021-12-20] MEDS: Sodium Chloride 0.9% 1000 ML 1,000 ML IV SCH (09:46)
--- NOTE | 2021-12-20 15:29 | XRAY ---
Indication: Follow-up surgery. Comparison: None 2 view right hip demonstrates total hip arthroplasty with intact bipolar prosthesis. Elsewhere osteopenia, Oneil balloon catheter, and scattered vascular calcifications. Remaining hip unremarkable.
[2021-12-21] MEDS: SUBLIMAZE 100 MCG/2 ML IV PRN (00:15)
[2021-12-21 05:10] LABS: Basophil (Absolute #) 0.01 x10^3/uL (0-0.4); Eosinophil % 2.4 % (0.00-5.0); Eosinophil (Absolute #) 0.12 x10^3/uL (0-0.5); Hematocrit 29.6 % (35-47); Lymphocytes % 28.2 % (24.0-44.0); Mean Cell Volume 99.7 fL (78-100); Mean Corpuscular Hemoglobin 30.3 pg (26-32); Mean Corpuscular Hgb Concent. 30.4 g/dL (32-36); Mean Platelet Volume 9.2 fL (7.5-11.0); Monocyte (Absolute #) 0.75 x10^3/uL (0.0-1.3); Monocytes % 15.1 % (0.0-12.0); Neutrophil % 52.3 % (36.0-66.0); Platelet Count 189 x10^3/uL (150-450); Red Blood Count 2.97 x10^6/uL (4.1-5.4); Red Cell Distribution Width 20.3 % (11.5-14.0)
[2021-12-21 05:30] LABS: ALBUMIN 2.1 g/dL (3.5-5.0); ALKALINE PHOSPHATASE 135 U/L (38-126); ANION GAP 8.8 MEQ/L (5-15); BLOOD UREA NITROGEN 10 mg/dL (7-17); CHLORIDE 106 mmol/L (98-107); Calcium 8.1 mg/dL (8.4-10.2); Carbon Dioxide 24 mmol/L (22-30); Creatinine 1 0.39 mg/dL (0.52-1.04); EST GLOMERULAR FILTRATION RATE > 60.0 ML/MIN; Glucose 87 mg/dL (74-106); Potassium 3.8 mmol/L (3.5-5.1); SGOT/AST 20 U/L (14-36); SGPT/ALT 17 U/L (0-35); SODIUM 136 mmol/L (137-145); Total Protein 4.9 g/dL (6.3-8.2)
[2021-12-21] MEDS: Advair Hfa 230/21 Mcg COMMON CANISTER IH SCH ×2 (07:27→18:51)
[2021-12-21] MEDS: PROVENTIL 2.5 MG/3 ML NEB IH PRN ×2 (09:52→18:42)
[2021-12-21] MEDS: KEPPRA PO SCH ×2 (10:05→21:24)
[2021-12-21] MEDS: Klor Con PO SCH ×2 (10:05→21:24)
[2021-12-21] MEDS: VANCOMYCIN 1 GRAM/200 ML BAG 1 GM/200 ML PIGGYBACK IV SCH ×2 (10:05→22:39)
--- NOTE | 2021-12-21 10:06 | PCM.NOTE ---
Date and Time: 12/21/21 1002 Subjective Assessment: She is disoriented this morning but conversant. Says her biscuits and gravy are too spicy. Max temp last night 99.0. - Review of Systems Constitutional: No Fever All Other Systems: Unable due to dementia Objective Exam General Appearance: no apparent distress, alert Neurologic Exam: cooperative Skin Exam: normal color, warm, dry, No rash Wound Assessment: Skin/Wound Assessment Wound/Incision Assessment Start: 12/16/21 21:07 Text: Status: Active Freq: Q6H Protocol: Document 12/21/21 02:00 RG (Rec: 12/21/21 02:27 RG [id number]) Wound/Incision Assessment Right Hip Wound Assessment Shift Assessment Wound Type Incision Dressing Status Changed Drainage Amount None General Appearance Well Approximated Primary Dressing TELFA BORDER DRESSING Comment Dx changed per day shift 12/20 CDI at this time Wound Photo Photo Taken No Eye Exam: eyes nml inspection Ears, Nose, Throat Exam: moist mucous membranes Neck Exam: normal inspection Respiratory Exam: lungs clear, diminished breath sounds (good air exchange), No crackles/rales, No rhonchi, No wheezing Cardiovascular Exam: regular rate/rhythm, normal heart sounds, No murmur Gastrointestinal/Abdomen Exam: soft, normal bowel sounds, No tenderness, No distention, No mass, No guarding, No rebound Extremity Exam: normal inspection, No pedal edema, No swelling OBJECTIVE DATA Vital Signs: Vital Signs - 24 hr Temp Pulse Resp BP Pulse Ox 12/21/21 09:52 69 20 92 L 12/21/21 07:30 67 20 90 L 12/21/21 06:35 96.9 F 61 18 113/78 96 12/21/21 03:53 98.5 F 79 20 108/61 96 12/20/21 23:56 98.1 F 72 20 124/75 98 12/20/21 19:30 77 22 97 12/20/21 19:22 98.6 F 77 20 131/76 97 12/20/21 16:00 99.0 F 74 16 141/75 90 L 12/20/21 12:00 98.6 F 72 17 144/76 94 L Pain Assessment - Last Documented Pain Intensity 0 Pain Scale Used FLACC Intake and Output: Intake & Output 12/18/21 12/19/21 12/20/2103/22 11:59 11:59 11:59 11:59 Intake Total 5149 1188 1288 1702 Output Total 8045 059 3173 300 Balance 2079 1937 38 1402 Weight 74.5 kg 75 kg 76.1 kg 79.1 kg Lab Results: Lab Results-Last 24 Hours 12/18/21 12/21/21 12/21/21 Range/Units 07:25 04:50 04:50 WBC 5.0 (4.0-10.5) x10^3/uL RBC 2.97 L (4.1-5.4) x10^6/uL Hgb 9.0 L (12.0-16.0) g/dL Hct 29.6 L (35-47) % MCV 99.7 (78-100) fL MCH 30.3 (26-32) pg MCHC 30.4 L (32-36) g/dL RDW 20.3 H (11.5-14.0) % Plt Count 189 (150-450) x10^3/uL MPV 9.2 (7.5-11.0) fL Gran % 52.3 (36.0-66.0) % Immature Gran % (Auto) 1.8 H (0.00-0.4) % Nucleat RBC Rel Count 0.0 (0.00-0.1) % Eos # (Auto) 0.12 (0-0.5) x10^3/uL Immature Gran # (Auto) 0.09 H (0.00-0.03) x10^3u/L Absolute Lymphs (auto) 1.40 (1.0-4.6) x10^3/uL Absolute Monos (auto) 0.75 (0.0-1.3) x10^3/uL Absolute Nucleated RBC 0.00 (0.00-0.01) x10^3u/L Lymphocytes % 28.2 (24.0-44.0) % Monocytes % 15.1 H (0.0-12.0) % Eosinophils % 2.4 (0.00-5.0) % Basophils % 0.2 (0.0-0.4) % Absolute Granulocytes 2.60 (1.4-6.9) x10^3/uL Basophils # 0.01 (0-0.4) x10^3/uL Smear Path Review Sodium 136 L (137-145) mmol/L Potassium 3.8 (3.5-5.1) mmol/L Chloride 106 (98-107) mmol/L Carbon Dioxide 24 (22-30) mmol/L Anion Gap 8.8 (5-15) MEQ/L BUN 10 (7-17) mg/dL Creatinine 0.39 L (0.52-1.04) mg/dL Estimated GFR > 60.0 ML/MIN Glucose 87 (74-106) mg/dL Calcium 8.1 L (8.4-10.2) mg/dL Total Bilirubin 0.30 (0.2-1.3) mg/dL AST 20 (14-36) U/L ALT 17 (0-35) U/L Alkaline Phosphatase 135 H (38-126) U/L Serum Total Protein 4.9 L (6.3-8.2) g/dL Albumin 2.1 L (3.5-5.0) g/dL Radiology Exams: Radiology Procedures Category Date Time Status HIP UNI (2V) INCL PEL IF DONE Routine Exams 12/20/21 15:24 Completed Multi-Disciplinary Progress Notes: Multi-Disciplinary Progress Notes 12/20/21 13:48 Case Management Note by Krystle Grajeda ENVIVE REPORTS THEY ARE READY FOR PATIENT WHEN SHE IS MEDICALLY READY FOR DC Initialized on 12/20/21 13:48 - END OF NOTE 12/20/21 13:16 Case Management Note by Krystle Grajeda S/W PATIENT' DAUGHTER- THEY PLAN FOR HER TO RETURN TO [facility] AT TIME OF DC Initialized on 12/20/21 13:16 - END OF NOTE 12/20/21 11:10 Case Management Note by Krystle Grajeda TRIED TO REACH OUT PATIENT'S AND HER DAUGHTER TO VERIFY DC PLANS- NO ANSWER AT THIS TIME- LM Initialized on 12/20/21 11:10 - END OF NOTE Assessment/Plan (1) Sepsis Current Visit: Yes Status: Resolved Qualifiers: Sepsis type: sepsis due to unspecified organism Hepatic coma status: without hepatic coma Severe sepsis shock status: with septic shock Assessment & Plan: with bacteremia- susceptible to vancomycin. Day #3 today. Tomorrow may be able to discharge to LTCF. (2) Anemia Current Visit: Yes Status: Chronic Qualifiers: Anemia type: unspecified type Qualified Code(s): D64.9 - Anemia, unspecified Assessment & Plan: Hgb to 9.0 this morning. Code(s): D64.9 - ANEMIA, UNSPECIFIED (3) Pneumonia Current Visit: Yes Status: Acute Qualifiers: Pneumonia type: due to unspecified organism Laterality: bilateral Lung location: lower lobe of lung Qualified Code(s): J18.9 - Pneumonia, unspecified organism Code(s): J18.9 - PNEUMONIA, UNSPECIFIED ORGANISM (4) UTI (urinary tract infection) Current Visit: Yes Status: Acute Qualifiers: Urinary tract infection type: acute cystitis Hematuria presence: without hematuria Qualified Code(s): N30.00 - Acute cystitis without hematuria Code(s): N39.0 - URINARY TRACT INFECTION, SITE NOT SPECIFIED (5) S/P hip arthroscopy Current Visit: Yes Status: Chronic Assessment & Plan: Hip XR nonacute. Code(s): Z98.890 - OTHER SPECIFIED POSTPROCEDURAL STATES (6) Dementia Current Visit: Yes Status: Chronic Qualifiers: Dementia type: unspecified type Dementia behavioral disturbance: without behavioral disturbance Qualified Code(s): F03.90 - Unspecified dementia without behavioral disturbance Code(s): F03.90 - UNSPECIFIED DEMENTIA WITHOUT BEHAVIORAL DISTURBANCE (7) CHF (congestive heart failure) Current Visit: Yes Status: Chronic Qualifiers: Heart failure type: unspecified Heart failure chronicity: unspecified Qualified Code(s): I50.9 - Heart failure, unspecified Code(s): I50.9 - HEART FAILURE, UNSPECIFIED (8) Seizure disorder Current Visit: Yes Status: Chronic Code(s): G40.909 - EPILEPSY, UNSP, NOT INTRACTABLE, WITHOUT STATUS EPILEPTICUS (9) Hypokalemia Current Visit: Yes Status: Resolved Code(s): E87.6 - HYPOKALEMIA
[2021-12-21] MEDS: Coreg 3.125 MG PO SCH ×2 (12:40→21:25)
[2021-12-21] MEDS: Zestril 5 MG PO SCH (12:40)
[2021-12-21] MEDS: HYDROCODONE-ACETAMIN 10-325 MG PO PRN (19:08)
[2021-12-22] MEDS: PROVENTIL 2.5 MG/3 ML NEB IH PRN ×2 (00:51→04:48)
[2021-12-22] MEDS: HYDROCODONE-ACETAMIN 10-325 MG PO PRN ×2 (01:09→10:35)
[2021-12-22 04:49] LABS: Absolute Neutrophil Ct (ANC) 2.99 x10^3/uL (1.4-6.9); Basophil (Absolute #) 0.02 x10^3/uL (0-0.4); Eosinophil % 1.7 % (0.00-5.0); Hematocrit 30.9 % (35-47); Hemoglobin 9.5 g/dL (12.0-16.0); Lymphocyte (Absolute #) 1.61 x10^3/uL (1.0-4.6); Lymphocytes % 27.7 % (24.0-44.0); Mean Cell Volume 98.7 fL (78-100); Mean Corpuscular Hemoglobin 30.4 pg (26-32); Mean Corpuscular Hgb Concent. 30.7 g/dL (32-36); Mean Platelet Volume 9.4 fL (7.5-11.0); Monocyte (Absolute #) 0.91 x10^3/uL (0.0-1.3); Monocytes % 15.6 % (0.0-12.0); Neutrophil % 51.4 % (36.0-66.0); Platelet Count 249 x10^3/uL (150-450); Red Blood Count 3.13 x10^6/uL (4.1-5.4); Red Cell Distribution Width 20.1 % (11.5-14.0); White Blood Count 5.8 x10^3/uL (4.0-10.5)
[2021-12-22 05:12] LABS: ALBUMIN 2.4 g/dL (3.5-5.0); ALKALINE PHOSPHATASE 146 U/L (38-126); BLOOD UREA NITROGEN 6 mg/dL (7-17); CHLORIDE 104 mmol/L (98-107); Carbon Dioxide 27 mmol/L (22-30); EST GLOMERULAR FILTRATION RATE > 60.0 ML/MIN; Glucose 83 mg/dL (74-106); Potassium 3.9 mmol/L (3.5-5.1); SGOT/AST 18 U/L (14-36); SGPT/ALT 17 U/L (0-35); SODIUM 134 mmol/L (137-145); Total Protein 5.1 g/dL (6.3-8.2)
[2021-12-22] MEDS ORDERED: SUBLIMAZE 100 MCG/2 ML IV PRN (07:22)
[2021-12-22] MEDS: Advair Hfa 230/21 Mcg COMMON CANISTER IH SCH (07:33)
--- NOTE | 2021-12-22 08:49 | PCM.DS ---
Discharge Summary Date of Admission: 12/16/21 19:58 Admitting Physician: DAVID CHARLES Primary Care Provider: DAVID CHARLES Allergies Allergies No Known Drug Allergies Allergy (Verified 12/16/21 16:36) Hospital Summary - Hospital Course Hospital Course: Pt is a 61 yo female with dementia and recent (within the past 1 mo) hip replacement who was admitted through ER with AMS/decreased mentation, found to be hypotensive with UTI and PNA. Her urine and blood cultures grew S. epidermis, with different susceptibilities, so she was treated ultimately with IV vancomycin x3d with resolution of her fever. Initially was on IV levophed; required central line for IV access. At admission, her WBC were 4.3. Potassium 3.2. Her CXR showed new bibasilar infiltrates/atelectasis. CT head nonacute. CT abd pelvis with question of RML/RLL masslike opcities, and mild distended GB without stones. Hip XR done several days later with intact hardware. Pt had been sent to rehab after having the hip surgery, but was only there 4d when she was brought to ER. Her seizure medications were IV initially but now back to PO. on day #3 she had Hgb to 7.1 so was transfused 2 units PRBC - her Hgb is now stable at 9.5. At baseline she is only alert to self. This morning she does know she is in "hospital" but cannot answer questions related to the date. She acts interested in breakfast but needs assistance to eat well. She will be discharged to [facility]TCF for further tx with linezolid (to finish 7d total) and continue home medicines. Nystatin and retain gusman catheter for the vulvar irritation. - Vitals & Intake/Output Vital Signs: Vital Signs Temperature 97.9 F 12/22/21 04:00 Pulse Rate 75 12/22/21 07:41 Respiratory Rate 18 12/22/21 07:41 Blood Pressure 129/87 12/22/21 04:00 O2 Sat by Pulse Oximetry 93 L 12/22/21 07:41 Intake & Output: Intake & Output 12/19/21 12/20/21 12/21/21 12/22/21 11:59 11:59 11:59 11:59 Intake Total 2787 1288 1702 1281 Output Total 850 6824 683 4860 Balance 1937 38 1402 -074 Weight 75 kg 76.1 kg 79.1 kg - Lab Result Diagrams: 12/22/21 04:30 12/22/21 04:30 Lab Results-Last 24 Hrs: Lab Results-Last 24 Hours 12/22/21 12/22/21 Range/Units 04:30 04:30 WBC 5.8 (4.0-10.5) x10^3/uL RBC 3.13 L (4.1-5.4) x10^6/uL Hgb 9.5 L (12.0-16.0) g/dL Hct 30.9 L (35-47) % MCV 98.7 (78-100) fL MCH 30.4 (26-32) pg MCHC 30.7 L (32-36) g/dL RDW 20.1 H (11.5-14.0) % Plt Count 249 (150-450) x10^3/uL MPV 9.4 (7.5-11.0) fL Gran % 51.4 (36.0-66.0) % Immature Gran % (Auto) 3.3 H (0.00-0.4) % Nucleat RBC Rel Count 0.0 (0.00-0.1) % Eos # (Auto) 0.10 (0-0.5) x10^3/uL Immature Gran # (Auto) 0.19 H (0.00-0.03) x10^3u/L Absolute Lymphs (auto) 1.61 (1.0-4.6) x10^3/uL Absolute Monos (auto) 0.91 (0.0-1.3) x10^3/uL Absolute Nucleated RBC 0.00 (0.00-0.01) x10^3u/L Lymphocytes % 27.7 (24.0-44.0) % Monocytes % 15.6 H (0.0-12.0) % Eosinophils % 1.7 (0.00-5.0) % Basophils % 0.3 (0.0-0.4) % Absolute Granulocytes 2.99 (1.4-6.9) x10^3/uL Basophils # 0.02 (0-0.4) x10^3/uL Sodium 134 L (137-145) mmol/L Potassium 3.9 (3.5-5.1) mmol/L Chloride 104 (98-107) mmol/L Carbon Dioxide 27 (22-30) mmol/L Anion Gap 7.0 (5-15) MEQ/L BUN 6 L (7-17) mg/dL Creatinine 0.40 L (0.52-1.04) mg/dL Estimated GFR > 60.0 ML/MIN Glucose 83 (74-106) mg/dL Calcium 8.0 L (8.4-10.2) mg/dL Total Bilirubin 0.40 (0.2-1.3) mg/dL AST 18 (14-36) U/L ALT 17 (0-35) U/L Alkaline Phosphatase 146 H (38-126) U/L Serum Total Protein 5.1 L (6.3-8.2) g/dL Albumin 2.4 L (3.5-5.0) g/dL Micro Results-Entire Visit: Microbiology 12/16/21 16:25 Blood Culture Gram Stain - Final Blood Not Reportable Blood Culture - Final NO GROWTH 12/16/21 16:35 Blood Culture Gram Stain - Final Blood Blood Culture - Final Staphylococcus Epidermidis 12/16/21 16:42 Urine Culture - Final Clean Catch Midstream Staphylococcus Epidermidis - Radiology Exams Ordered Rad Exams-Entire Visit: Radiology Procedures Category Date Time Status HIP UNI (2V) INCL PEL IF DONE Routine Exams 12/20/21 15:24 Completed - Procedures and Test Procedures and Tests throughout Hospitalization: Therapy Orders & Screens 12/16/21 20:05 Respiratory Therapy Consult ROUTINE Comment: Reason For Exam: 12/16/21 20:55 Oxygen Nasal Cannula 2 lpm Comment: Respiratory Therapy Assessment DAILY Comment: 12/16/21 21:07 PT Screen per Nursing Assess ONCE Comment: Protocol Order Physician Instructions: Greater than 3 points order PT Admission Screenin Reason For Exam: Triggered on Admission Diagnosis: Urosepsis, Pneumonia Open Wound/Cellutlitis/Pressure Ulcers: No Acute Fx/ORIF/Change in wt bearing status: No Severe MUSCULOSKELETAL pain: Yes ADL Dysfunction: Yes Acute CVA w/Hemiparesis/Hemiplegia: No Decreased Functional Mobility/Strength: Yes Sprain/Strain: No Acute Post-op Mobility Dysfunction: Yes Total Points: 12 RT Screen per Nursing Assess ONCE Comment: Protocol Order Physician Instructions: Greater than 3 points order RT Admission Screen Reason For Exam: Triggered on Admission Diagnosis: Urosepsis, Pneumonia Diagnosis: Urosepsis, Pneumonia Pneumonia: Yes Home O2: Yes Asthma: No CHF: Yes Home CPAP/BIPAP: No Home Nebs/MDI: Yes Total Points: 16 12/16/21 23:44 EKG ROUTINE Comment: Diagnosis: Urosepsis, Pneumonia 12/16/21 23:45 EKG ROUTINE Comment: Diagnosis: Urosepsis, Pneumonia Discharge Exam General Appearance: no apparent distress, alert Neurologic Exam: cooperative, disoriented Eye Exam: eyes nml inspection Ears, Nose, Throat Exam: moist mucous membranes Neck Exam: normal inspection Respiratory Exam: diminished breath sounds (good air exchange), No c rackles/rales, No rhonchi, No wheezing Cardiovascular Exam: regular rate/rhythm, normal heart sounds, No murmur Gastrointestinal/Abdomen Exam: soft, normal bowel sounds, No tenderness, No distention, No mass, No guarding, No rebound Extremity Exam: normal inspection, No pedal edema, No swelling Skin Exam: normal color, warm, dry, No rash Wound Assessment: Skin/Wound Assessment Wound/Incision Assessment Start: 12/16/21 21:07 Text: Status: Active Freq: Q6H Protocol: Document 12/22/21 02:00 JOSE CRUZ (Rec: 12/22/21 03:01 JOSE CRUZ [id number]) Wound/Incision Assessment Right Hip Wound Assessment Shift Assessment Wound Type Incision Dressing Status Dry & Intact Primary Dressing TELFA BORDER DRESSING Comment Dx CDI Wound Photo Photo Taken No Final Diagnosis/Problem List - Final Discharge Diagnosis/Problem (1) Sepsis Current Visit: Yes Status: Resolved Assessment & Plan: Will finish 7d total effective antibiotic (vancomycin initially, now linezolid). Afebrile. (2) Anemia Current Visit: Yes Status: Chronic Assessment & Plan: stable at 9.5 today. Code(s): D64.9 - ANEMIA, UNSPECIFIED (3) Pneumonia Current Visit: Yes Status: Acute Code(s): J18.9 - PNEUMONIA, UNSPECIFIED ORGANISM (4) UTI (urinary tract infection) Current Visit: Yes Status: Acute Code(s): N39.0 - URINARY TRACT INFECTION, SITE NOT SPECIFIED (5) S/P hip arthroscopy Current Visit: Yes Status: Chronic Assessment & Plan: Dressing has been changed. Needs outpatient f/u with Dr. Mead. Code(s): Z98.890 - OTHER SPECIFIED POSTPROCEDURAL STATES (6) Dementia Current Visit: Yes Status: Chronic Code(s): F03.90 - UNSPECIFIED DEMENTIA WITHOUT BEHAVIORAL DISTURBANCE (7) CHF (congestive heart failure) Current Visit: Yes Status: Chronic Code(s): I50.9 - HEART FAILURE, UNSPECIFIED (8) Seizure disorder Current Visit: Yes Status: Chronic Code(s): G40.909 - EPILEPSY, UNSP, NOT INTRACTABLE, WITHOUT STATUS EPILEPTICUS (9) Hypokalemia Current Visit: Yes Status: Resolved Code(s): E87.6 - HYPOKALEMIA (10) Lung mass Current Visit: Yes Status: Suspected Assessment & Plan: Possible, in RML and RLL on CT abd/pelvis - may need further evaluation outpatient. Would compare with earlier scans if available. Code(s): R91.8 - OTHER NONSPECIFIC ABNORMAL FINDING OF LUNG FIELD (11) Irritation of vulva Current Visit: Yes Status: Acute Assessment & Plan: Treating for yeast. Will need to be observed for any worsening. Code(s): N90.89 - OTH NONINFLAMMATORY DISORDERS OF VULVA AND PERINEUM - Discharge Disposition: DC TO ANY "OTHER" SKILLED NURSING Condition: Stable Prescriptions: New Lactobacillus Acidophilus [Acidophilus TABLET] 1 tab PO TID #30 tablet Potassium Chloride Tab* [Klor Con] 20 meq PO BID #60 tab Linezolid 600 mg PO BID 4 Days #8 tablet Nystatin Cream 30 gm [Nystop 30 gm Cream] 1 gm TOP QID #30 ml Albuterol 2.5 mg/3 ml Neb [Proventil 2.5 mg/3 ml Neb] 2.5 mg IH Q4H PRN PRN #30 unit PRN Reason: Shortness Of Breath/Wheezing Continue Lisinopril 5 mg [Zestril 5 MG] 5 mg PO DAILY Levetiracetam [Keppra] 500 mg PO BID Furosemide [Lasix] 20 mg PO BID Divalproex Sodium 500 mg PO QID Carvedilol 3.125 mg [Coreg 3.125 MG] 3.125 mg PO BID Budesonide/Formoterol Fumarate [Budesonide-Formoterol 160-4.5] 2 puff IH BID Bisacodyl 10 mg [Dulcolax 10 MG SUPP] 10 mg RC DAILY PRN PRN PRN Reason: Constipation Aspirin EC 325 mg [Ecotrin 325 MG] 325 mg PO BID Acetaminophen 500 mg [Tylenol Extra Strength 500 mg] 500 mg PO Q4HPRN PRN PRN Reason: Pain And/Or Fever Sodium Phosphate,Platte-Dibasic [Fleet Enema] 1 applic RC DAILY PRN PRN PRN Reason: Constipation Magnesium Hydroxide 30 ml [Milk of Magnesia 30 ml] 30 ml PO Q8H PRN PRN PRN Reason: Constipation No Action Hydrocodone/Acetaminophen [Hydrocodone-Acetamin 10-325 mg] 1 tab PO Q6H PRN PRN PRN Reason: Pain Follow up with: DIANE ESCOBEDO MD [NON-STAFF PHY W/O PRIVILEGES] - (NEED TO FOLLOW UP 1 WEEK AFTER DISCHARGE ) COURTNEY WILLIAMSON MD [COURTESY STAFF] - (NEEDS TO F/U 2-3 WEEKS AFTER DISCHARGE ) DAVID CHARLES [Primary Care Provider] - CHRISTELLE DONG [CONSULTING PHYSICIAN] - (NEEDS TO FOLLOW UP 1 WEEK AFTER DISCHARGE )
[2021-12-22 08:59] VITALS: BP 113/58; PULSE 76; O2SAT 95
[2021-12-22] MEDS: Coreg 3.125 MG PO SCH (09:21)
[2021-12-22] MEDS: KEPPRA PO SCH (09:21)
[2021-12-22] MEDS: Klor Con PO SCH (09:21)
[2021-12-22] MEDS: Zestril 5 MG PO SCH (09:21)
[2021-12-22] MEDS ORDERED: TROUGH DRUG LEVELS IJ ONE (09:30)
[2021-12-22] MEDS ORDERED: NYSTOP 30 GM CREAM TOP SCH (10:00)
[2021-12-22 10:21] LABS: Folate (Folic Acid) 6.29 ng/mL (2.76 - >20)
== END 2021-12-22 11:00 | DRG 871 ==
LOC: ED 16:05 → MED SURG 19:58 → ICU 21:35 → MED SURG 12-20 16:55
PROVIDERS: ADMIT Family Medicine; ATTEND Family Medicine
DX: A41.9 Sepsis, unspecified organism (principal); J18.9 Pneumonia, unspecified organism; N39.0 Urinary tract infection, site not specified; N17.9 Acute kidney failure, unspecified; D64.9 Anemia, unspecified; Z98.890 Other specified postprocedural states; F03.90 Unspecified dementia, unspecified severity, without behavioral disturbance, psychotic disturbance, mood disturbance, and anxiety; I11.0 Hypertensive heart disease with heart failure; I50.9 Heart failure, unspecified; G40.909 Epilepsy, unspecified, not intractable, without status epilepticus; E87.6 Hypokalemia; R91.8 Other nonspecific abnormal finding of lung field; N90.89 Other specified noninflammatory disorders of vulva and perineum; I95.9 Hypotension, unspecified; R77.8 Other specified abnormalities of plasma proteins; S71.011A Laceration without foreign body, right hip, initial encounter; Z79.899 Other long term (current) drug therapy; Z20.828 Contact with and (suspected) exposure to other viral communicable diseases
CPT/HCPCS: 0241U; 36000; 36415; 36430; 70450; 71045; 73502; 74176; 80048; 80053; 80164; 81015; 82140; 82607; 82746; 83605; 83880; 84484; 85014; 85018; 85025; 85027; 86308; 86850; 86900; 86901; 86922; 87040; 87077; 87086; 87186; 87651; 93005; 93041; 94640; 94760; 94762; 96360; 96361; 96365; 96374; 96375; 99285; 99291; J1953; J1956; J3010; J7609; P9016; A9270-GY; J3370

== ENCOUNTER 2022-01-16 15:32 | Inpatient (IN) | payer MEDICAID, OTHER ==
--- NOTE | 2022-01-16 15:55 | ERPHSYRPT ---
- History of Present Illness Time Seen by Provider: 01/16/22 15:40 Source: patient, EMS Exam Limitations: clinical condition Physician History: This is a morbidly obese 61-year-old white female patient of Dr. Roger Fields who is also a resident at [facility]. Patient was brought in by ambulance service because new onset of lethargy as well as a white blood cell count of 31,000 and potassium level of 6.0. Patient has a history of seizure disorders, CHF, arrhythmias and recurrent pneumonias. Upon entrance into the emergency department, patient is unable to provide significant and appropriate history. She does state that she has pain all over. Patient has a history of dementia and is a heavy smoker of cigarettes daily. Timing/Duration: today Severity: moderate Character of Deficits: none Deficits: no difficulties Baseline/Normal Cognition: alert but confused Current Cognition: alert but confused (Less alert than usual) Baseline Gait: unable to walk Associated Symptoms: confusion Allergies/Adverse Reactions: No Known Drug Allergies Allergy (Verified 12/16/21 16:36) Home Medications: Acetaminophen 500 mg [Tylenol Extra Strength 500 mg] 500 mg PO Q4HPRN PRN 12/16/21 [History] Aspirin EC 325 mg [Ecotrin 325 MG] 325 mg PO BID 12/16/21 [History] Bisacodyl 10 mg [Dulcolax 10 MG SUPP] 10 mg RC DAILY PRN PRN 12/16/21 [History] Budesonide/Formoterol Fumarate [Budesonide-Formoterol 160-4.5] 2 puff IH BID 12/16/21 [History] Carvedilol 3.125 mg [Coreg 3.125 MG] 3.125 mg PO BID 12/16/21 [History] Divalproex Sodium 500 mg PO QID 12/16/21 [History] Furosemide [Lasix] 20 mg PO BID 12/16/21 [History] Hydrocodone/Acetaminophen [Hydrocodone-Acetamin 10-325 mg] 1 tab PO Q6H PRN PRN 12/16/21 [History] Levetiracetam [Keppra] 500 mg PO BID 12/16/21 [History] Lisinopril 5 mg [Zestril 5 MG] 5 mg PO DAILY 12/16/21 [History] Magnesium Hydroxide 30 ml [Milk of Magnesia 30 ml] 30 ml PO Q8H PRN PRN 12/16/21 [History] Sodium Phosphate,Becker-Dibasic [Fleet Enema] 1 applic RC DAILY PRN PRN 12/16/21 [History] Hx Tetanus, Diphtheria Vaccination/Date Given: (unknown) Hx Influenza Vaccination/Date Given: Yes Hx Pneumococcal Vaccination/Date Given: Yes Travel Risk - International Travel Have you traveled outside of the country in past 3 weeks: No - Coronavirus Screening Are you exhibiting any of the following symptoms?: No Close contact with a COVID-19 positive Pt in past 14-21 Days: No - Vaccine Status Have you recieved a Covid-19 vaccination: Yes Breastfeeding Program Coordinator: Moderna - Vaccination Dates Date of 2cond Vaccination (if applicable): 2020 - Review of Systems Constitutional: No Symptoms Eyes: No Symptoms Ears, Nose, & Throat: No Symptoms Respiratory: No Symptoms Cardiac: No Symptoms Abdominal/Gastrointestinal: Abdominal Pain Genitourinary Symptoms: No Symptoms Musculoskeletal: No Symptoms Skin: No Symptoms Neurological: No Symptoms, Lethargy (Mild) Psychological: No Symptoms Endocrine: No Symptoms Hematologic/Lymphatic: No Symptoms Immunological/Allergic: No Symptoms All Other Systems: Reviewed and Negative - Past Medical History Pertinent Past Medical History: Yes Neurological History: Dementia, Seizures ENT History: No Pertinent History Cardiac History: Arrhythmia, Congestive Heart Failure Respiratory History: Pneumonia, Other Endocrine Medical History: No Pertinent History Musculoskeletal History: Other GI Medical History: No Pertinent History History: No Pertinent History Psycho-Social History: Depression Other Medical History: possible cancer nodule in the lung - Past Surgical History Past Surgical History: Yes Neuro Surgical History: No Pertinent History Cardiac: No Pertinent History Respiratory: No Pertinent History Gastrointestinal: No Pertinent History Genitourinary: No Pertinent History Musculoskeletal: Joint Replacement Female Surgical History: Tubal Ligation Other Surgical History: rt hip - Social History Smoking Status: Heavy tobacco smoker How long have you smoked: 40 years Exposure to second hand smoke: No Drug Use: none Patient Lives Alone: No - Nursing Vital Signs Nursing Vital Signs: Initial Vital Signs Temperature 97 F 01/16/22 15:36 Pulse Rate 101 H 01/16/22 15:36 Respiratory Rate 18 01/16/22 15:36 Blood Pressure 98/77 01/16/22 15:36 O2 Sat by Pulse Oximetry 99 01/16/22 15:36 Pain Scale Pain Intensity 0 - [place] Coma Scale Best Eye Response ([place]): (4) open spontaneously Best Verbal Response ([place]): (3) inappropriate words Best Motor Response ([place]): (5) localizes to pain [place] Total: 12 - Physical Exam General Appearance: no apparent distress, lethargy (But arousable), obese Eye Exam: bilateral eye: normal inspection, PERRL, EOMI Ears, Nose, Throat Exam: normal ENT inspection, dry mucous membranes Neck Exam: normal inspection, non-tender, supple, full range of motion Respiratory: normal breath sounds, lungs clear, airway intact, No chest tenderness, No respiratory distress Cardiovascular: regular rate/rhythm, normal heart sounds, normal peripheral pulses Gastrointestinal: soft, normal bowel sounds, tenderness (Diffuse to palpation), guarding (Diffuse to palpation), No rebound Pelvic Exam: not done Rectal Exam: not done Back Exam: normal inspection, normal range of motion, No CVA tenderness, No vertebral tenderness Extremity Exam: normal inspection, normal range of motion, pelvis stable Mental Status: lethargy (Arousable) 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 Exam: normal hearing, PERRL, tongue midline Skin Exam: normal color, warm, dry SpO2 Interpretation: normal O2 Delivery: Room Air Ordered Tests: Active Orders 24 hr Category Date Time Status Category Specialist STAT Care 01/16/22 15:59 Active EKG-ER Only STAT Care 01/16/22 15:59 Active Oneil [Catheter-[place] Oneil] STAT Care 01/16/22 16:00 Active IV Insertion STAT Care 01/16/22 15:59 Active NPO (ED) STAT Care 01/16/22 15:59 Active ABDOMEN AND PELVIS W/0 CONTRAS [CT] Stat Exams 01/16/22 17:41 Taken CHEST WITHOUT CONTRAST [CT] Stat Exams 01/16/22 17:41 Taken HEAD WITHOUT CONTRAST [CT] Stat Exams 01/16/22 15:59 Completed BLOOD CULTURE Stat Lab 01/16/22 16:20 Received CBC W DIFF Stat Lab 01/16/22 15:59 Results CMP Stat Lab 01/16/22 16:20 Completed CULTURE,URINE Stat Lab 01/16/22 16:33 Received Lactic Acid Stat Lab 01/16/22 16:08 Completed Manual Differential NC Stat Lab 01/16/22 15:59 Results PROCALCITONIN Stat Lab 01/16/22 Ordered Pathologist Review Stat Lab 01/16/22 15:59 Results UA W/RFX CULTURE Stat Lab 01/16/22 16:33 Completed Transfer Order Routine Transfer 01/16/22 Ordered Medication Summary Generic Name Dose Route Start Last Admin Trade Name Oliverio PRN Reason Stop Dose Admin Sodium Chloride 1,000 mls @ 100 mls/hr 01/16/22 16:00 01/16/22 17:09 Sodium Chloride 0.9% 1000 Ml IV 02/15/22 15:59 100 mls/hr .Q10H NARDA Administration Piperacillin Sod/Tazobactam 100 mls @ 200 mls/hr 01/16/22 19:33 01/16/22 19:38 Sod 3.375 gm/ Sodium Chloride IV 01/16/22 20:02 200 mls/hr STAT ONE Administration Discontinued Medications Generic Name Dose Route Start Last Admin Trade Name Oliverio PRN Reason Stop Dose Admin Sodium Chloride Confirm 01/16/22 19:35 Sodium Chloride 100ml Mini-Bag Plus Administered 01/16/22 19:36 Dose 100 mls @ ud IV .STK-MED ONE Piperacillin Sod/Tazobactam Sod Confirm 01/16/22 19:35 Piperacillin/Tazobactam Sodium 3.375 Gm Vial Administered 01/16/22 19:36 Dose 3.375 gm IV .STK-MED ONE Lab/Rad Data: Laboratory Result Diagrams 01/16/22 15:59 01/16/22 16:20 Laboratory Results 01/16/22 01/16/22 01/16/22 Range/Units Unknown 16:33 16:20 WBC (4.0-10.5) x10^3/uL RBC (4.1-5.4) x10^6/uL Hgb (12.0-16.0) g/dL Hct (35-47) % MCV (78-100) fL MCH (26-32) pg MCHC (32-36) g/dL RDW (11.5-14.0) % Plt Count (150-450) x10^3/uL MPV (7.5-11.0) fL Smear Path Review Sodium (137-145) mmol/L Potassium (3.5-5.1) mmol/L Chloride (98-107) mmol/L Carbon Dioxide (22-30) mmol/L Anion Gap (5-15) MEQ/L BUN (7-17) mg/dL Creatinine (0.52-1.04) mg/dL Estimated GFR ML/MIN Glucose (74-106) mg/dL Lactic Acid (0.4-2.0) Calcium (8.4-10.2) mg/dL Total Bilirubin (0.2-1.3) mg/dL AST (14-36) U/L ALT (0-35) U/L Alkaline Phosphatase (38-126) U/L Serum Total Protein (6.3-8.2) g/dL Albumin (3.5-5.0) g/dL Urinalys Dipstick Clnc MAIN LAB Urine Color YELLOW (YELLOW) Urine Appearance CLOUDY (CLEAR) Urine pH 5.5 (5-6) Ur Specific [place] 1.020 (1.005-1.025) POC Urine Protein Conf 30 (Negative) Urine Ketones NEGATIVE (NEGATIVE) Urine Nitrite NEGATIVE (NEGATIVE) Urine Bilirubin SMALL (NEGATIVE) Urine Urobilinogen 1 (0-1) mg/dL Urine Leukocytes SMALL (NEGATIVE) Urine WBC (Auto) 26-50 (0-5) /HPF Urine RBC (Auto) 6-10 (0-2) /HPF U Epithel Cells (Auto) MANY (FEW) /HPF Urine Bacteria (Auto) MODERATE (NEGATIVE) /HPF Urine RBC TRACE-INTACT (0-5) William/ul Urine Mucus (Auto) SLIGHT (NEGATIVE) /HPF Ur Culture Indicated? YES Urine Glucose NEGATIVE (NEGATIVE) mg/dL Valproic Acid 69.9 (50-100) ug/mL Influenza Type A Ag NEGATIVE (NEGATIVE) Influenza Type B Ag NEGATIVE (NEGATIVE) RSV (PCR) NEGATIVE (Negative) SARS-CoV-2 (PCR) NEGATIVE (NEGATIVE) 01/16/22 01/16/22 01/16/22 Range/Units 16:20 16:08 15:59 WBC 33.0 H* (4.0-10.5) x10^3/uL RBC 3.32 L (4.1-5.4) x10^6/uL Hgb 10.1 L (12.0-16.0) g/dL Hct 32.8 L (35-47) % MCV 98.8 (78-100) fL MCH 30.4 (26-32) pg MCHC 30.8 L (32-36) g/dL RDW 19.6 H (11.5-14.0) % Plt Count 209 (150-450) x10^3/uL MPV 9.6 (7.5-11.0) fL Smear Path Review Pending Sodium 137 (137-145) mmol/L Potassium 5.7 H (3.5-5.1) mmol/L Chloride 103 (98-107) mmol/L Carbon Dioxide 26 (22-30) mmol/L Anion Gap 14.7 (5-15) MEQ/L BUN 42 H (7-17) mg/dL Creatinine 1.65 H (0.52-1.04) mg/dL Estimated GFR 33.6 ML/MIN Glucose 117 H (74-106) mg/dL Lactic Acid 1.3 (0.4-2.0) Calcium 9.1 (8.4-10.2) mg/dL Total Bilirubin 0.30 (0.2-1.3) mg/dL AST 27 (14-36) U/L ALT 12 (0-35) U/L Alkaline Phosphatase 146 H (38-126) U/L Serum Total Protein 6.4 (6.3-8.2) g/dL Albumin 2.9 L (3.5-5.0) g/dL Urinalys Dipstick Clnc Urine Color (YELLOW) Urine Appearance (CLEAR) Urine pH (5-6) Ur Specific [place] (1.005-1.025) POC Urine Protein Conf (Negative) Urine Ketones (NEGATIVE) Urine Nitrite (NEGATIVE) Urine Bilirubin (NEGATIVE) Urine Urobilinogen (0-1) mg/dL Urine Leukocytes (NEGATIVE) Urine WBC (Auto) (0-5) /HPF Urine RBC (Auto) (0-2) /HPF U Epithel Cells (Auto) (FEW) /HPF Urine Bacteria (Auto) (NEGATIVE) /HPF Urine RBC (0-5) William/ul Urine Mucus (Auto) (NEGATIVE) /HPF Ur Culture Indicated? Urine Glucose (NEGATIVE) mg/dL Valproic Acid (50-100) ug/mL Influenza Type A Ag (NEGATIVE) Influenza Type B Ag (NEGATIVE) RSV (PCR) (Negative) SARS-CoV-2 (PCR) (NEGATIVE) - Progress Progress: unchanged Progress Note: 01/16/22 17:52 CAT scan of the head out contrast shows a nonacute senile brain. 01/16/22 19:31 Medical decision making: This patient's CAT scan of the abdomen pelvis shows mild to moderate diffuse colitis. This, in combination with a urinary tract fra ction, is likely the cause of this patient's leukocytosis and sepsis. Patient also had a CT scan of the chest without contrast which shows multiple bilateral masses the largest to be in the right lower lobe measuring 5 cm. This favors metastasis. There are also small bilateral pleural effusions. I spoke with Dr. Roger Fields and we will place the patient in the ICU setting and the patient will receive Zosyn as well as intravenous fluid and repeat labs in the morning. Discussed with : Tommy Counseled pt/family regarding: lab results, diagnosis, need for follow-up, rad results - Departure Departure Disposition: In-patient Admission Clinical Impression: Sepsis, Colitis, UTI (urinary tract infection) Condition: Fair Critical Care Time: Yes Critical Care Time(excluding separately billable procedures): Critical 30-74 mins Referrals: DAVID CHARLES [Primary Care Provider] - Follow up/PCP as directed
[2022-01-16] MEDS ORDERED: Sodium Chloride 0.9% 1000 ML 1,000 ML IV SCH ×2 (16:00→19:56)
[2022-01-16 16:50] LABS: Hematocrit 32.8 % (35-47); Hemoglobin 10.1 g/dL (12.0-16.0); Mean Cell Volume 98.8 fL (78-100); Mean Corpuscular Hemoglobin 30.4 pg (26-32); Mean Corpuscular Hgb Concent. 30.8 g/dL (32-36); Mean Platelet Volume 9.6 fL (7.5-11.0); Platelet Count 209 x10^3/uL (150-450); Red Blood Count 3.32 x10^6/uL (4.1-5.4); Red Cell Distribution Width 19.6 % (11.5-14.0)
[2022-01-16 16:54] LABS: Bacteria MODERATE /HPF (NEGATIVE); Epithelial Cells MANY /HPF (FEW); Mucus SLIGHT /HPF (NEGATIVE); WBC 26-50 /HPF (0-5)
[2022-01-16 16:56] LABS: Appearance CLOUDY (CLEAR); Bilirubin SMALL (NEGATIVE); Dipstick done @ ? MAIN LAB; Glucose NEGATIVE (NEGATIVE); Ketones NEGATIVE (NEGATIVE); Nitrite NEGATIVE (NEGATIVE); Ph 5.5 (5-6); Protein,Urine Dip 30 (Negative); RBC TRACE-INTACT Ery/ul (0-5); Urobilinogen 1 mg/dL (0-1)
[2022-01-16 16:58] LABS: Urine Cultured Indicated? YES
[2022-01-16 17:03] LABS: ALBUMIN 2.9 g/dL (3.5-5.0); ANION GAP 14.7 MEQ/L (5-15); BILIRUBIN,TOTAL 0.3 mg/dL (0.2-1.3); Calcium 9.1 mg/dL (8.4-10.2); Creatinine 1 1.65 mg/dL (0.52-1.04); EST GLOMERULAR FILTRATION RATE 33.6 ML/MIN; Potassium 5.7 mmol/L (3.5-5.1); Total Protein 6.4 g/dL (6.3-8.2)
[2022-01-16] MEDS ORDERED: Sodium Chloride 0.9% 1000 ML 1,000 ML ONE (17:08)
--- NOTE | 2022-01-16 17:22 | XRAY ---
Indication: Confusion. Multiple contiguous axial images obtained through the head without contrast. Comparison: December 16, 2021 Again age-appropriate global atrophy and mild periventricular degenerative micro-ischemia. No acute intracranial hemorrhage, abnormal extra-axial fluid collection, or mass effect. Fourth ventricle is midline without hydrocephalus. Bony calvarium intact. Visualized paranasal sinuses are clear. Again opacification of the mastoid air cells, right greater than left. Impression: Continued nonacute senile brain. Again opacification both mastoid air cells presumed inflammatory.
[2022-01-16 17:23] LABS: INFLUENZA A NEGATIVE (NEGATIVE); INFLUENZA B NEGATIVE (NEGATIVE); RESPIRATORY SYNCTIAL VIRUS NEGATIVE (Negative); SARS-CoV-2 Xpert Express NEGATIVE (NEGATIVE)
[2022-01-16] MEDS ORDERED: PIPERACILLIN/TAZOBACTAM 3.375 GM in Sodium Chloride 100ML MINI-BAG PLUS 100 ML IV ONE (19:33)
[2022-01-16] MEDS ORDERED: Sodium Chloride 100ML MINI-BAG PLUS 100 ML IV ONE ×2 (19:35→21:50)
[2022-01-16] MEDS ORDERED: PIPERACILLIN/TAZOBACTAM IV ONE (19:35)
[2022-01-16] MEDS ORDERED: TYLENOL 325 MG PO PRN (19:56)
[2022-01-16] MEDS ORDERED: PROVENTIL 2.5 MG/3 ML NEB IH PRN (21:27)
[2022-01-16] MEDS ORDERED: HYDROCODONE-ACETAMIN 10-325 MG PO PRN (21:27)
[2022-01-16] MEDS ORDERED: Piperacillin/Tazobactam 2.25 GM IV ONE (21:50)
[2022-01-16] MEDS ORDERED: Acidophilus TABLET ONE (21:51)
[2022-01-16] MEDS: Lactated Ringers 1,000 ML IV SCH (21:51)
[2022-01-16] MEDS ORDERED: Ecotrin 325 MG PO ONE (22:00)
[2022-01-16] MEDS ORDERED: Keppra 250 MG PO ONE (22:00)
[2022-01-16 22:23] LABS: BAND 25 % (0.0-2.0); Lymphocytes 10 % (24-44); Metamyelocyte 5 %; Microcytosis 1+; Monocyte 4 % (0.0-12.0); Platelet Estimate NORMAL (NORMAL); Total Cells Counted 100
[2022-01-16] MEDS: FLAGYL 500 MG IVPB 500 MG/100 ML BAG IV SCH (23:41)
[2022-01-17] MEDS: Piperacillin/Tazobactam 2.25 GM 2.25 GM in Sodium Chloride 100ML MINI-BAG PLUS 100 ML IV SCH ×4 (00:45→17:56)
[2022-01-17] MEDS ORDERED: Piperacillin/Tazobactam 2.25 GM IV ONE (05:02)
[2022-01-17] MEDS ORDERED: Sodium Chloride 100ML MINI-BAG PLUS 100 ML IV ONE (05:02)
[2022-01-17] MEDS: FLAGYL 500 MG IVPB 500 MG/100 ML BAG IV SCH ×3 (05:56→17:56)
[2022-01-17 06:43] LABS: ALBUMIN 2.4 g/dL (3.5-5.0); ANION GAP 10.5 MEQ/L (5-15); BILIRUBIN,TOTAL 0.2 mg/dL (0.2-1.3); Calcium 8.6 mg/dL (8.4-10.2); Creatinine 1 1.2 mg/dL (0.52-1.04); EST GLOMERULAR FILTRATION RATE 48.5 ML/MIN; Potassium 4.4 mmol/L (3.5-5.1); Total Protein 5.4 g/dL (6.3-8.2)
[2022-01-17 07:05] LABS: Hemoglobin 9.1 g/dL (12.0-16.0); Mean Corpuscular Hemoglobin 30.3 pg (26-32); Mean Corpuscular Hgb Concent. 30.3 g/dL (32-36); Mean Platelet Volume 9.4 fL (7.5-11.0); Platelet Count 185 x10^3/uL (150-450); Red Cell Distribution Width 19.2 % (11.5-14.0); White Blood Count 20.3 x10^3/uL (4.0-10.5)
[2022-01-17] MEDS: Advair Hfa 230/21 Mcg COMMON CANISTER IH SCH ×2 (07:06→18:58)
[2022-01-17] MEDS: Lactated Ringers 1,000 ML IV SCH ×2 (08:04→17:59)
--- NOTE | 2022-01-17 08:46 | XRAY ---
Indication: Leukocytosis. Fever. Multiple contiguous axial images obtained through the chest without contrast. Comparison: None Lungs demonstrates diffuse pulmonary emphysema with scattered fibrosis/scarring greatest in both lower lobes. There are also multiple bilateral irregular pulmonary masses, largest posterior right lower lobe measuring 2.0 x 5.1 cm worrisome for metastasis. Left upper lobe mass appears partially cavitary commonly seen with squamous cell carcinoma, adenocarcinoma, and sarcoma. Small pleural effusions, right greater than left. Heart is not enlarged. Aorta is mildly arteriosclerotic without aneurysm. Small mediastinal and right hilar calcified nodes. No pathologic mediastinal lymphadenopathy. Small hiatal hernia. Bony thorax demonstrates osteopenia, minimal degenerative changes throughout the spine, minimal dextroscoliosis centered at T9, and remote L1 superior endplate fracture with approximately 50% height loss. No suspicious bony lesions. CT abdomen/pelvis reported separately. Impression: 1. Multiple bilateral pulmonary masses favoring metastasis. Left upper lobe cavitary mass favoring cavitary malignancy as seen with squamous cell carcinoma, adenocarcinoma, and sarcomas. 2. Small bilateral effusions. 3. Chronic findings including pulmonary emphysema, pulmonary fibrosis/scarring, arteriosclerotic disease, chronic bony findings, small hiatal hernia, and old granulomatous disease.
--- NOTE | 2022-01-17 08:51 | XRAY ---
Indication: Leukocytosis. Fever. Multiple contiguous axial images obtained through the abdomen and pelvis without contrast. Comparison: December 16, 2021 CT chest reported separately. Noncontrasted stomach and bowel loops appear nonobstructed. Colon now demonstrates mild diffuse wall thickening with pericolonic stranding greatest in the right hemicolon favoring colitis. No free fluid/air. Gallbladder remains distended without obvious gallstones or biliary distention. Stable tiny splenic calcified granulomas, bilateral adrenal hypertrophy, and empty urinary bladder with Oneil balloon catheter in situ. Remaining liver, gallbladder, pancreas, spleen, adrenal glands, kidneys, ureters, and uterus are unremarkable for noncontrast exam. There remains moderate scattered vascular calcifications with 3.5 cm distal AAA. Osseous structures again demonstrates osteopenia, mild levoscoliosis, remote L1 superior endplate fracture, and right total hip arthroplasty. Impression: 1. New diffuse colitis without complications. 2. Again distended gallbladder better evaluated with sonogram if clinically warranted. 3. Chronic findings including bilateral adrenal hypertrophy, arteriosclerotic disease with distal AAA, and chronic bony findings.
[2022-01-17] MEDS: HYDROCODONE-ACETAMIN 10-325 MG PO PRN ×2 (09:23→23:09)
[2022-01-17] MEDS ORDERED: MILK OF MAGNESIA 30 ML PO PRN (09:50)
[2022-01-17] MEDS ORDERED: NON-FORMULARY ITEM (Sodium Phosphate,Mono-Dibasic [Fleet Enema] 133 ML Enema) RC PRN (09:50)
[2022-01-17] MEDS ORDERED: TYLENOL EXTRA STRENGTH 500 MG PO PRN (09:50)
[2022-01-17] MEDS ORDERED: Dulcolax 10 MG SUPP RC PRN (09:50)
[2022-01-17] MEDS ORDERED: DIVALPROEX SODIUM 500 MG PO SCH (10:00)
[2022-01-17] MEDS ORDERED: Zestril 5 MG PO SCH (10:00)
[2022-01-17] MEDS: KEPPRA PO SCH ×2 (10:35→23:00)
[2022-01-17] MEDS: Ecotrin 325 MG PO SCH ×2 (10:35→23:00)
[2022-01-17] MEDS: Klor Con PO SCH ×2 (10:35→23:00)
[2022-01-17] MEDS: Acidophilus TABLET PO SCH ×3 (10:35→22:59)
[2022-01-17] MEDS: Coreg 3.125 MG PO SCH ×2 (10:36→22:59)
[2022-01-17] MEDS: VENELEX OINTMENT TP SCH ×3 (10:36→23:00)
[2022-01-17 11:08] LABS: BAND 6 % (0.0-2.0); Lymphocytes 7 % (24-44); Monocyte 8 % (0.0-12.0); Total Cells Counted 100
[2022-01-17 11:10] LABS: ANISOCYTOSIS 1+; Toxic Granulation 1+
[2022-01-17 11:11] LABS: Platelet Estimate NORMAL (NORMAL)
[2022-01-17] MEDS: LASIX 20 MG PO SCH (14:15)
[2022-01-17] MEDS ORDERED: Acidophilus TABLET PO ONE (22:00)
--- NOTE | 2022-01-17 23:55 | PCM.HP ---
History of Present Illness - Chief Complaint Chief Complaint: SEPSIS, COLITIS, UTI, BILATERAL PULMONARY MASSES History of Present Illness: is a 61 year old female patient of Dr Duran who resides at [facility] with worsening of multiple medical problems- recent Covid infection,pulmonary masses read as Metastatic . Medications & Allergies Home Medications: Home Medication List Acetaminophen 500 mg [Tylenol Extra Strength 500 mg] 500 mg PO Q4HPRN PRN 12/16/21 [History Confirmed 01/16/22] Aspirin EC 325 mg [Ecotrin 325 MG] 325 mg PO BID 12/16/21 [History Confirmed 01/16/22] Bisacodyl 10 mg [Dulcolax 10 MG SUPP] 10 mg RC DAILY PRN PRN 12/16/21 [History Confirmed 01/16/22] Budesonide/Formoterol Fumarate [Budesonide-Formoterol 160-4.5] 2 puff IH BID 12/16/21 [History Confirmed 01/16/22] Carvedilol 3.125 mg [Coreg 3.125 MG] 3.125 mg PO BID 12/16/21 [History Confirmed 01/16/22] Divalproex Sodium 500 mg PO QID 12/16/21 [History Confirmed 01/16/22] Furosemide [Lasix] 20 mg PO 0800,1400 12/16/21 [History Confirmed 01/16/22] Hydrocodone/Acetaminophen [Hydrocodone-Acetamin 10-325 mg] 1 tab PO Q6H PRN PRN 12/16/21 [History Confirmed 01/16/22] Levetiracetam [Keppra] 500 mg PO BID 12/16/21 [History Confirmed 01/16/22] Lisinopril 5 mg [Zestril 5 MG] 5 mg PO DAILY 12/16/21 [History Confirmed 01/16/22] Magnesium Hydroxide 30 ml [Milk of Magnesia 30 ml] 30 ml PO Q8H PRN PRN 12/16/21 [History Confirmed 01/16/22] Sodium Phosphate,Kay-Dibasic [Fleet Enema] 1 applic RC DAILY PRN PRN 12/16/21 [History Confirmed 01/16/22] Lactobacillus Acidophilus [Acidophilus TABLET] 1 tab PO TID #30 tablet 12/22/21 [Rx Confirmed 01/16/22] Potassium Chloride Tab* [Klor Con] 20 meq PO BID #60 tab 12/22/21 [Rx Confirmed 01/16/22] Albuterol 2.5 mg/3 ml Neb [Proventil 2.5 mg/3 ml Neb] 1 neb IH Q4H PRN PRN 01/16/22 [History Confirmed 01/16/22] Balsam [place] Oil [Balsam [place] Oil Oint] 1 gm TOP TID 01/16/22 [History Confirmed 01/16/22] Allergies/Adverse Reactions: Allergies Allergy/AdvReac Type Severity Reaction Status Date / Time No Known Drug Allergies Allergy Verified 01/16/22 20:57 - Past Medical History Past Medical History: Yes Neurological History: Dementia, Seizures ENT History: No Pertinent History Cardiac History: Arrhythmia, Congestive Heart Failure, Myocardial Infarction (NH) Respiratory History: COPD, Pneumonia, Other Endocrine Medical History: No Pertinent History Musculoskelatal History: Other GI Medical History: No Pertinent History History: No Pertinent History Pyscho-Social History: Depression Reproductive Disorders: No Pertinent History Comment: possible cancer nodule in the lung, PER PREVIOUS VISIT/UT RECORD - Female History Are you now?: No - Past Surgical History Past Surgical History: Yes Neuro Surgical History: No Pertinent History Cardiac History: No Pertinent History Respiratory Surgery: No Pertinent History GI Surgical History: No Pertinent History Genitourinary Surgical Hx: No Pertinent History Musculskeletal Surgical Hx: Joint Replacement Female Surgical History: Tubal Ligation Other Surgical History: rt hip, PER PREVIOUS VISIT/UT RECORD - Social History Smoking Status: Never smoker How long have you smoked: 40 years Exposure to second hand smoke: No Alcohol: None Drug Use: none - Physical Exam Vital Signs: Vital Signs - 24 hr Temp Pulse Resp BP Pulse Ox 01/17/22 23:36 96.9 F 75 17 100/78 94 L 01/17/22 20:00 97.0 F 74 16 83/56 95 01/17/22 18:59 91 H 18 93 L 01/17/22 15:45 97.9 F 75 12 88/64 96 01/17/22 11:30 97.9 F 78 17 129/86 95 01/17/22 07:08 83 18 98 01/17/22 06:56 97.9 F 82 14 90/63 97 01/17/22 04:00 98.8 F 88 16 137/77 98 01/17/22 00:01 94 H 01/17/22 00:00 97.4 F 89 23 132/84 96 Wound Assessment: Skin/Wound Assessment Wound/Incision Assessment Start: 01/16/22 20:56 Text: Status: Active Freq: Q6H Protocol: Document 01/17/22 20:00 EG (Rec: 01/17/22 20:37 EG [id number]) Wound/Incision Assessment Buttock Wound Assessment Shift Assessment Wound Type SHEARING/BLISTERS/EXCORIATION Wound Stage Non Pressure Wound Drainage Amount None Surrounding Tissue Kerr Comment Barrier cream utilized to bilateral buttocks Wound Photo Photo Taken Yes Results - Labs Lab/Micro Results: Lab Results-Last 24 Hours 01/17/22 01/17/22 Range/Units 06:00 06:00 WBC 20.3 H (4.0-10.5) x10^3/uL RBC 3.00 L (4.1-5.4) x10^6/uL Hgb 9.1 L (12.0-16.0) g/dL Hct 30.0 L (35-47) % MCV 100.0 (78-100) fL MCH 30.3 (26-32) pg MCHC 30.3 L (32-36) g/dL RDW 19.2 H (11.5-14.0) % Plt Count 185 (150-450) x10^3/uL MPV 9.4 (7.5-11.0) fL Segmented Neutrophils 79 H (36.0-66.0) % Band Neutrophils 6 H (0.0-2.0) % Lymphocytes (Manual) 7 L (24-44) % Monocytes (Manual) 8 (0.0-12.0) % Toxic Granulation 1+ Platelet Estimate NORMAL (NORMAL) RBC Morphology ABNORMAL Anisocytosis 1+ Sodium 139 (137-145) mmol/L Potassium 4.4 D (3.5-5.1) mmol/L Chloride 107 (98-107) mmol/L Carbon Dioxide 26 (22-30) mmol/L Anion Gap 10.5 (5-15) MEQ/L BUN 39 H (7-17) mg/dL Creatinine 1.20 H (0.52-1.04) mg/dL Estimated GFR 48.5 ML/MIN Glucose 110 H (74-106) mg/dL Calcium 8.6 (8.4-10.2) mg/dL Total Bilirubin 0.20 (0.2-1.3) mg/dL AST 29 (14-36) U/L ALT 13 (0-35) U/L Alkaline Phosphatase 125 (38-126) U/L Serum Total Protein 5.4 L (6.3-8.2) g/dL Albumin 2.4 L (3.5-5.0) g/dL - Radiology Impressions Radiology Exams & Impressions: Radiology Procedures Category Date Time Status ABDOMEN AND PELVIS W/0 CONTRAS [CT] Stat Exams 01/16/22 17:41 Completed CHEST WITHOUT CONTRAST [CT] Stat Exams 01/16/22 17:41 Completed HEAD WITHOUT CONTRAST [CT] Stat Exams 01/16/22 15:59 Completed
[2022-01-18] MEDS: Lactated Ringers 1,000 ML IV SCH ×3 (03:13→20:06)
[2022-01-18] MEDS: FLAGYL 500 MG IVPB 500 MG/100 ML BAG IV SCH ×4 (03:18→18:18)
[2022-01-18] MEDS: Piperacillin/Tazobactam 2.25 GM 2.25 GM in Sodium Chloride 100ML MINI-BAG PLUS 100 ML IV SCH ×4 (03:57→19:03)
[2022-01-18] MEDS: LASIX 20 MG PO SCH (08:28)
--- NOTE | 2022-01-18 08:34 | PCM.NOTE ---
Date and Time: 01/18/22828 Subjective Assessment: Pt only had 200cc of urine out last night. She is upset this morning, says she needs help, is asking if her is alright. Cannot be redirected to tell me where she is or if she is in pain. - Review of Systems All Other Systems: Unable due to dementia Objective Exam General Appearance: moderate distress (upset, crying), alert Neurologic Exam: disoriented, confusion, agitation Skin Exam: normal color, warm, dry, No rash Wound Assessment: Skin/Wound Assessment Wound/Incision Assessment Start: 01/16/22 20:56 Text: Status: Active Freq: Q6H Protocol: Document 01/18/22 02:00 EG (Rec: 01/18/22 03:23 EG [id number]) Wound/Incision Assessment Buttock Wound Assessment Shift Assessment Wound Type SHEARING/BLISTERS/EXCORIATION Wound Stage Non Pressure Wound Drainage Amount None Surrounding Tissue [place] Comment Barrier cream utilized to bilateral buttocks Wound Photo Photo Taken Yes Neck Exam: normal inspection Respiratory Exam: normal breath sounds, lungs clear, No crackles/rales, No rhonchi, No wheezing Cardiovascular Exam: regular rate/rhythm, normal heart sounds, No murmur Gastrointestinal/Abdomen Exam: No soft, No normal bowel sounds Extremity Exam: normal inspection, No pedal edema, No swelling OBJECTIVE DATA Vital Signs: Vital Signs - 24 hr Temp Pulse Resp BP Pulse Ox 01/18/22 07:33 60 14 94/57 90 L 01/18/22 07:21 62 14 94 L 01/18/22 04:00 76 01/18/22 03:59 97.0 F 76 15 111/66 98 01/18/22 00:01 75 01/17/22 23:36 96.9 F 75 17 100/78 94 L 01/17/22 20:00 97.0 F 74 16 83/56 95 01/17/22 18:59 91 H 18 93 L 01/17/22 15:45 97.9 F 75 12 88/64 96 01/17/22 11:30 97.9 F 78 17 129/86 95 Pain Assessment - Last Documented Pain Intensity 2 Pain Scale Used FLACC Intake and Output: Intake & Output 08/28/22 08/29/22 08/30/22 08/31/22 11:59 11:59 11:59 11:59 Intake Total 5172 9011 Output Total 350 500 Balance 1112 2211 Weight 66.7 kg Lab Results: Lab Results-Last 24 Hours 01/17/22 Range/Units 06:00 Segmented Neutrophils 79 H (36.0-66.0) % Band Neutrophils 6 H (0.0-2.0) % Lymphocytes (Manual) 7 L (24-44) % Monocytes (Manual) 8 (0.0-12.0) % Toxic Granulation 1+ Platelet Estimate NORMAL (NORMAL) RBC Morphology ABNORMAL Anisocytosis 1+ Radiology Exams: Radiology Procedures Category Date Time Status ABDOMEN 2 VIEW Stat Exams 01/18/22 Ordered ABDOMEN AND PELVIS W/0 CONTRAS [CT] Stat Exams 01/16/22 17:41 Completed ABDOMEN AND PELVIS W/0 CONTRAS [CT] Stat Exams 01/18/22 08:28 Ordered CHEST WITHOUT CONTRAST [CT] Stat Exams 01/16/22 17:41 Completed HEAD WITHOUT CONTRAST [CT] Stat Exams 01/16/22 15:59 Completed Multi-Disciplinary Progress Notes: Multi-Disciplinary Progress Notes 01/17/22 13:08 Case Management Note by Krystle Grajeda S/W DAUGHTER AGAIN- SHE REPORTS HER FATHER IS NOT CHANGING HIS MIND ON THE CODE STATUS. SHE REPORTS "HE WANTS TO GIVE HER EVERY CHANCE". SHE ALSO REPORTS PATIENT HAD PET SCAN ON SUNDAY. SHE CURRENTLY PLANS FOR PATIENT TO RETURN TO [facility] AND FOLLOW UP WITH ONCOLOGY THEN SHE HOPES THIS WILL HELP HER FATHER UNDERSTAND THE SITUATION Initialized on 01/17/22 13:08 - END OF NOTE 01/17/22 12:31 Case Management Note by Krystle Grajeda S/W DAUGHTER JOSH- DR. NIETO CALLED AND S/W HER THIS AM AND WENT OVER THE CT RESULTS SHOWING THE METS. SHE REPORTS HER FATHER IS INTERESTED IN TAKING HER HOME WITH HOSPICE. WE HAD A LONG CONVERSATION ABOUT PATIENT'S CURRENT CODE STATUS AND CURRENT CONDITION. DAUGHTER IS AWARE THAT PATIENT IS NOT CURRENTLY ACTIVELY DIEING BUT PROGNOSIS IS POOR IN GENERAL DUE TO THE CANCER. SHE IS CONCERNED OF THEIR ABILITY TO CARE FOR HER FOR A PROLONGED PERIOD OF TIME. SHE PREFERS THAT PATIENT GOES BACK TO THE CORRECTION THEN THEY CAN READDRESS HOSPICE PATIENT DECLINES FURTHER. SHE WAS GIVEN LIST OF HOSPICE PROVIDERS TO LOOK OVER AND DISCUSS. SHE WILL ALSO DISCUSS PATIENT'S CODE STATUS WITH HER FATHER. SHE WILL LET THE NURSE KNOW IF HE BECOMES AGREEABLE TO CHANGE CODE STATUS. DAUGHTER JOSH WOULD LIKE DR. LANGFORD TO CALL HER IN THE AM WHEN SHE ROUNDS ON PATIENT. WILL LEAVE THIS NOTE ON CHART FOR MD TO SEE Initialized on 01/17/22 12:31 - END OF NOTE Assessment/Plan (1) Colitis Current Visit: Yes Status: Acute Assessment & Plan: Currently I'm concerned about her lack of bowel sounds and her firm abdomen - will do XR abd and CT abd/pelvis to r/o free air/perforation/surgical abdomen. On zosyn and flagyl day #3. Her initial procalcitonin was elevated, and will be following that today (to be drawn 48h after last). Code(s): K52.9 - NONINFECTIVE GASTROENTERITIS AND COLITIS, UNSPECIFIED (2) Sepsis Current Visit: Yes Status: Acute Qualifiers: Sepsis type: sepsis due to unspecified organism Sepsis acute organ dysfunction status: with acute organ dysfunction Severe sepsis acute organ dysfunction type: acute renal failure Acute renal failure type: unspecified Severe sepsis shock status: without septic shock Qualified Code(s): A41.9 - Sepsis, unspecified organism; R65.20 - Severe sepsis without septic shock; N17.9 - Acute kidney failure, unspecified Assessment & Plan: She is getting fluids at 125cc/hr but still only had 200 cc output. Will consult nephrology. (3) UTI (urinary tract infection) Current Visit: Yes Status: Acute Qualifiers: Urinary tract infection type: acute cystitis Hematuria presence: without hematuria Qualified Code(s): N30.00 - Acute cystitis without hematuria Code(s): N39.0 - URINARY TRACT INFECTION, SITE NOT SPECIFIED (4) CHF (congestive heart failure) Current Visit: No Status: Chronic Qualifiers: Heart failure type: unspecified Heart failure chronicity: unspecified Qualified Code(s): I50.9 - Heart failure, unspecified Code(s): I50.9 - HEART FAILURE, UNSPECIFIED (5) Dementia Current Visit: No Status: Chronic Qualifiers: Dementia type: unspecified type Dementia behavioral disturbance: without behavioral disturbance Qualified Code(s): F03.90 - Unspecified dementia without behavioral disturbance Assessment & Plan: Lives in LTCF. Code(s): F03.90 - UNSPECIFIED DEMENTIA WITHOUT BEHAVIORAL DISTURBANCE (6) Acute renal failure Current Visit: No Status: Acute Qualifiers: Acute renal failure type: unspecified Qualified Code(s): N17.9 - Acute kidney failure, unspecified Assessment & Plan: eGFR improved from 33 to 48, but she is typically >60. (7) Seizure disorder Current Visit: No Status: Chronic Code(s): G40.909 - EPILEPSY, UNSP, NOT INTRACTABLE, WITHOUT STATUS EPILEPTICUS (8) Lung mass Current Visit: No Status: Suspected Assessment & Plan: She did have a PET scan earlier this week, and has f/u planned with oncology. Code(s): R91.8 - OTHER NONSPECIFIC ABNORMAL FINDING OF LUNG FIELD
[2022-01-18] MEDS: Advair Hfa 230/21 Mcg COMMON CANISTER IH SCH ×2 (09:00→19:21)
--- NOTE | 2022-01-18 10:46 | XRAY ---
Indication: Firm abdomen. Absent bowel sounds. Multiple contiguous axial images obtained through the abdomen and pelvis without contrast. Comparison: January 16, 2022 Lung bases demonstrate grossly stable pulmonary masses, small basilar effusions with compressive atelectasis, and small hiatal hernia. Heart not enlarged. Noncontrasted stomach and bowel loops remain nonobstructed. Again diffuse colitis greatest in the right hemicolon with new small free fluid in the right colic gutter and pelvis presumed reactive. No walled off fluid collection or free air. Stable distended gallbladder without gallstones, tiny splenic calcified granulomas, bilateral adrenal hypertrophy, urinary bladder Oneil balloon catheter, and arteriosclerotic disease with 3.5 cm distal AAA. Remaining liver, pancreas, kidneys, ureters, bladder, and uterus are unremarkable for noncontrast exam. Impression: 1. Compared to CT exam 2 days ago, there remains diffuse colitis with new small reactive free fluid. No walled off fluid collection or free air. 2. Grossly stable pulmonary metastasis, small bibasilar effusions/atelectasis, small hiatal hernia, distended gallbladder, bilateral adrenal hypertrophy, and arteriosclerotic disease with AAA.
--- NOTE | 2022-01-18 11:21 | XRAY ---
Indication: Firm abdomen. Decreased bowel sounds. Comparison: None. Supine and left lateral decubitus abdomen demonstrates nonspecific nonobstructed bowel gas pattern. No free air. Solid organs unremarkable. Osseous structures intact with osteopenia and right hip arthroplasty. Impression: Radiographically nonacute nonobstructed abdomen. See CT abdomen/pelvis performed earlier in the day.
[2022-01-18] MEDS: Klor Con PO SCH ×2 (12:01→21:40)
[2022-01-18] MEDS: ENOXAPARIN SODIUM SQ SCH (12:01)
[2022-01-18] MEDS: KEPPRA PO SCH ×2 (12:01→21:41)
[2022-01-18] MEDS: Acidophilus TABLET PO SCH ×3 (12:01→21:41)
[2022-01-18] MEDS: Ecotrin 325 MG PO SCH ×2 (12:01→21:41)
[2022-01-18] MEDS: VENELEX OINTMENT TP SCH ×3 (12:02→21:41)
[2022-01-18] MEDS: HYDROCODONE-ACETAMIN 10-325 MG PO PRN (17:22)
[2022-01-19] MEDS: Piperacillin/Tazobactam 2.25 GM 2.25 GM in Sodium Chloride 100ML MINI-BAG PLUS 100 ML IV SCH ×4 (00:02→18:37)
[2022-01-19] MEDS: FLAGYL 500 MG IVPB 500 MG/100 ML BAG IV SCH ×4 (00:49→17:45)
[2022-01-19] MEDS: HYDROCODONE-ACETAMIN 10-325 MG PO PRN (03:13)
[2022-01-19] MEDS: Lactated Ringers 1,000 ML IV SCH ×2 (03:13→16:12)
[2022-01-19 04:07] LABS: Hematocrit 31.5 % (35-47); Hemoglobin 9.3 g/dL (12.0-16.0); Mean Cell Volume 99.7 fL (78-100); Mean Corpuscular Hemoglobin 29.4 pg (26-32); Mean Corpuscular Hgb Concent. 29.5 g/dL (32-36); Mean Platelet Volume 9.4 fL (7.5-11.0); Platelet Count 146 x10^3/uL (150-450); Red Blood Count 3.16 x10^6/uL (4.1-5.4); White Blood Count 8.1 x10^3/uL (4.0-10.5)
[2022-01-19 04:33] LABS: ALBUMIN 2.2 g/dL (3.5-5.0); ALKALINE PHOSPHATASE 125 U/L (38-126); ANION GAP 8.3 MEQ/L (5-15); BLOOD UREA NITROGEN 20 mg/dL (7-17); CHLORIDE 107 mmol/L (98-107); Calcium 7.7 mg/dL (8.4-10.2); Carbon Dioxide 26 mmol/L (22-30); Creatinine 1 0.62 mg/dL (0.52-1.04); EST GLOMERULAR FILTRATION RATE > 60.0 ML/MIN; Glucose 94 mg/dL (74-106); SGOT/AST 17 U/L (14-36); SGPT/ALT 11 U/L (0-35); SODIUM 137 mmol/L (137-145); Total Protein 4.9 g/dL (6.3-8.2)
[2022-01-19] MEDS: Advair Hfa 230/21 Mcg COMMON CANISTER IH SCH ×2 (07:31→17:20)
--- NOTE | 2022-01-19 08:38 | PCM.NOTE ---
Date and Time: 01/19/22830 Subjective Assessment: Pt is partially oriented to place (knows "hospital" but not the city) this morning. Is asking for her . Drank an Ensure yesterday. Urine out put 250cc overnight and 250cc during the previous [address] abd/pelvis yesterday was non-acute. - Review of Systems Constitutional: No Fever Abdominal/Gastrointestinal: No Vomiting Objective Exam General Appearance: mild distress (intermittently; asks for help, or asks for her ), obese Neurologic Exam: alert, disoriented, confusion Skin Exam: normal color, warm, dry, No rash Wound Assessment: Skin/Wound Assessment Wound/Incision Assessment Start: 01/16/22 20:56 Text: Status: Active Freq: Q6H Protocol: Document 01/19/22 08:00 [facility] (Rec: 01/19/22 08:29 [facility] [id number]) Wound/Incision Assessment Buttock Wound Assessment Shift Assessment Wound Type SHEARING/BLISTERS/EXCORIATION Wound Stage Non Pressure Wound Drainage Amount None Surrounding Tissue [place] Comment Barrier cream utilized to bilateral buttocks Wound Photo Photo Taken Yes Eye Exam: eyes nml inspection Ears, Nose, Throat Exam: moist mucous membranes Neck Exam: normal inspection Respiratory Exam: normal breath sounds, lungs clear, No crackles/rales, No rhonchi, No wheezing Cardiovascular Exam: regular rate/rhythm, normal heart sounds, No murmur Gastrointestinal/Abdomen Exam: soft, normal bowel sounds, tenderness (diffuse), No distention, No mass, No guarding, No rebound Extremity Exam: No pedal edema, No swelling Back Exam: normal inspection, No rash OBJECTIVE DATA Vital Signs: Vital Signs - 24 hr Temp Pulse Resp BP Pulse Ox 01/19/22 07:36 79 20 94 L 01/19/22 07:10 97.3 F 81 18 91/65 01/19/22 04:00 96.8 F 83 18 109/71 94 L 01/19/22 00:01 78 01/18/22 23:47 98.3 F 78 17 121/88 96 01/18/22 20:00 97.7 F 83 19 115/88 24 L 01/18/22 19:21 84 22 94 L 01/18/22 16:00 97.1 F 84 24 133/92 90 L 01/18/22 12:00 88 17 132/60 90 L Pain Assessment - Last Documented Pain Intensity 2 [facility] Intake and Output: Intake & Output 01/16/22 01/17/22 01/18/22 01/19/22 11:59 11:59 11:59 11:59 Intake Total 1462 6161 2047 Output Total 350 500 600 Balance 1112 2211 1447 Weight 66.7 kg 70 kg 66.7 kg Lab Results: Lab Results-Last 24 Hours 01/18/22 01/19/22 01/19/22 Range/Units 17:29 04:03 04:03 WBC 8.1 (4.0-10.5) x10^3/uL RBC 3.16 L (4.1-5.4) x10^6/uL Hgb 9.3 L (12.0-16.0) g/dL Hct 31.5 L (35-47) % MCV 99.7 (78-100) fL MCH 29.4 (26-32) pg MCHC 29.5 L (32-36) g/dL RDW 19.0 H (11.5-14.0) % Plt Count 146 L (150-450) x10^3/uL MPV 9.4 (7.5-11.0) fL Sodium 137 (137-145) mmol/L Potassium 4.0 (3.5-5.1) mmol/L Chloride 107 (98-107) mmol/L Carbon Dioxide 26 (22-30) mmol/L Anion Gap 8.3 (5-15) MEQ/L BUN 20 H (7-17) mg/dL Creatinine 0.62 (0.52-1.04) mg/dL Estimated GFR > 60.0 ML/MIN Glucose 94 (74-106) mg/dL Calcium 7.7 L (8.4-10.2) mg/dL Total Bilirubin 0.10 L (0.2-1.3) mg/dL AST 17 (14-36) U/L ALT 11 (0-35) U/L Alkaline Phosphatase 125 (38-126) U/L Serum Total Protein 4.9 L (6.3-8.2) g/dL Albumin 2.2 L (3.5-5.0) g/dL Procalcitonin 1.300 H (0.030-0.080) ng/mL Radiology Exams: Radiology Procedures Category Date Time Status ABDOMEN 2 VIEW Stat Exams 01/18/22 09:38 Completed ABDOMEN AND PELVIS W/0 CONTRAS [CT] Stat Exams 01/18/22 08:28 Completed Multi-Disciplinary Progress Notes: Multi-Disciplinary Progress Notes 01/18/22 12:30 Case Management Note by Krystle Grajeda NO CHANGE IN DC PLANS AT THIS TIME- [facility] TIME OF DC Initialized on 01/18/22 12:30 - END OF NOTE Assessment/Plan (1) Colitis Current Visit: Yes Status: Acute Assessment & Plan: Improved. On zosyn and flagyl day #4. Bowel sounds are better and she had a bowel movement last night. Has been tolerating po, but doesn't eat much - will add Ensure. Her WBC are normal today and her procalcitonin was improved last night. CT abd/pelvis repeated yesterday was nonacute. Code(s): K52.9 - NONINFECTIVE GASTROENTERITIS AND COLITIS, UNSPECIFIED (2) Acute renal failure Current Visit: No Status: Acute Qualifiers: Acute renal failure type: unspecified Qualified Code(s): N17.9 - Acute kidney failure, unspecified Assessment & Plan: nephrology consult pending. Her eGFR has returned to her normal, but she is borderline oliguric (500cc out in the past 24 hours). (3) Sepsis Current Visit: Yes Status: Acute Qualifiers: Sepsis type: sepsis due to unspecified organism Sepsis acute organ dysfunction status: with acute organ dysfunction Severe sepsis acute organ dysfunction type: acute renal failure Acute renal failure type: unspecified Severe sepsis shock status: without septic shock Qualified Code(s): A41.9 - Sepsis, unspecified organism; R65.20 - Severe sepsis without septic shock; N17.9 - Acute kidney failure, unspecified Assessment & Plan: BP is improved, and bio markers improved (WBC, procalcitonin). However renal dysfunction appears to be lingering. (4) UTI (urinary tract infection) Current Visit: Yes Status: Acute Qualifiers: Urinary tract infection type: acute cystitis Hematuria presence: without hematuria Qualified Code(s): N30.00 - Acute cystitis without hematuria Assessment & Plan: Gneg; on zosyn. Code(s): N39.0 - URINARY TRACT INFECTION, SITE NOT SPECIFIED (5) CHF (congestive heart failure) Current Visit: No Status: Chronic Qualifiers: Heart failure type: unspecified Heart failure chronicity: unspecified Qualified Code(s): I50.9 - Heart failure, unspecified Code(s): I50.9 - HEART FAILURE, UNSPECIFIED (6) Dementia Current Visit: No Status: Chronic Qualifiers: Dementia type: unspecified type Dementia behavioral disturbance: without behavioral disturbance Qualified Code(s): F03.90 - Unspecified dementia without behavioral disturbance Code(s): F03.90 - UNSPECIFIED DEMENTIA WITHOUT BEHAVIORAL DISTURBANCE (7) Seizure disorder Current Visit: No Status: Chronic Code(s): G40.909 - EPILEPSY, UNSP, NOT INTRACTABLE, WITHOUT STATUS EPILEPTICUS (8) Lung mass Current Visit: No Status: Suspected Assessment & Plan: likely metastatic. I did talk to her daughter, Blossom, yesterday, who wants the pt to be comfortable and happy. Was ok with nephrology consult but wouldn't want her mom on dialysis, for example. Will likely want her to return to LTCF after the acute antibiotic treatment is done, and may engage hospice at that time, with a goal of bringing her mom home in the last weeks of her life. Code(s): R91.8 - OTHER NONSPECIFIC ABNORMAL FINDING OF LUNG FIELD
[2022-01-19] MEDS: Acidophilus TABLET PO SCH ×3 (09:16→23:15)
[2022-01-19] MEDS: Klor Con PO SCH ×2 (09:16→23:16)
[2022-01-19] MEDS: Ecotrin 325 MG PO SCH ×2 (09:16→23:15)
[2022-01-19] MEDS: KEPPRA PO SCH ×2 (09:16→23:16)
[2022-01-19] MEDS: ENOXAPARIN SODIUM SQ SCH (09:24)
[2022-01-19] MEDS: VENELEX OINTMENT TP SCH ×2 (09:26→14:53)
[2022-01-19] MEDS: Zofran 4 MG/2 ML VIAL IV PRN ×2 (12:29→22:04)
[2022-01-19] MEDS: LASIX 20 MG PO SCH (14:33)
[2022-01-19] MEDS ORDERED: Lasix 20 MG/2 ML ONE (20:00)
[2022-01-19] MEDS: Lasix 20 MG/2 ML IV SCH (20:12)
[2022-01-20] MEDS: Piperacillin/Tazobactam 2.25 GM 2.25 GM in Sodium Chloride 100ML MINI-BAG PLUS 100 ML IV SCH ×4 (00:15→19:27)
[2022-01-20] MEDS: VENELEX OINTMENT TP SCH ×4 (01:18→22:32)
[2022-01-20] MEDS: FLAGYL 500 MG IVPB 500 MG/100 ML BAG IV SCH ×4 (01:18→18:46)
[2022-01-20 04:07] LABS: Absolute Neutrophil Ct (ANC) 7.08 x10^3/uL (1.4-6.9); Basophil (Absolute #) 0.09 x10^3/uL (0-0.4); Eosinophil (Absolute #) 0 x10^3/uL (0-0.5); Hematocrit 37.2 % (35-47); Hemoglobin 11.1 g/dL (12.0-16.0); Lymphocyte (Absolute #) 0.71 x10^3/uL (1.0-4.6); Lymphocytes % 7.6 % (24.0-44.0); Mean Cell Volume 99.5 fL (78-100); Mean Corpuscular Hemoglobin 29.7 pg (26-32); Mean Corpuscular Hgb Concent. 29.8 g/dL (32-36); Mean Platelet Volume 8.9 fL (7.5-11.0); Monocytes % 8.5 % (0.0-12.0); Neutrophil % 75.2 % (36.0-66.0); Platelet Count 178 x10^3/uL (150-450); Red Blood Count 3.74 x10^6/uL (4.1-5.4); White Blood Count 9.4 x10^3/uL (4.0-10.5)
[2022-01-20 05:16] LABS: 027 TOX PROD PRESUMPTIVE NEGATIVE (NEGATIVE)
[2022-01-20 05:24] LABS: ALBUMIN 2.2 g/dL (3.5-5.0); ALKALINE PHOSPHATASE 120 U/L (38-126); ANION GAP 10.4 MEQ/L (5-15); BLOOD UREA NITROGEN 15 mg/dL (7-17); CHLORIDE 108 mmol/L (98-107); Calcium 7.8 mg/dL (8.4-10.2); Carbon Dioxide 24 mmol/L (22-30); EST GLOMERULAR FILTRATION RATE > 60.0 ML/MIN; Ferritin 414 ng/mL (11.1-264); Glucose 149 mg/dL (74-106); MAGNESIUM 1.9 mg/dL (1.6-2.3); Potassium 4.1 mmol/L (3.5-5.1); SGOT/AST 15 U/L (14-36); SGPT/ALT 12 U/L (0-35); SODIUM 139 mmol/L (137-145); Total Protein 5.1 g/dL (6.3-8.2)
[2022-01-20 05:29] LABS: Vitamin B12 > 1000 pg/mL (239-931)
[2022-01-20 05:35] LABS: TOXIGENIC C. DIFF ORG POSITIVE (NEGATIVE)
[2022-01-20] MEDS: WIXELA 500-50 INHUB IH SCH ×2 (05:50→18:58)
[2022-01-20] MEDS: Zofran 4 MG/2 ML VIAL IV PRN (06:03)
--- NOTE | 2022-01-20 07:35 | CONS ---
CONSULT DATE: 01/19/2022 REASON FOR CONSULT: Acute kidney disease. HISTORY: The patient is a 61-year-old lady who appears much older than her stated age. She lives in a local alf here and was brought in by the ambulance because of lethargy as well as elevated white blood cell count and potassium 6.0. She has history of seizure disorder, congestive heart failure, arrhythmia, dementia and history of pneumonia. The patient was admitted for sepsis, colitis, urinary tract infection. On this admission she did have increased creatinine. Renal services was consulted. The patient is a poor historian. No family members at bedside. The patient has dementia. Medical records from the patients nurse. Initially, she had a white blood cell count of 33, hemoglobin 10.1. Procalcitonin 3.3. She had increased creatinine which was improving down to 1.1 on 01/17/2022. REVIEW OF SYSTEMS: The patient is lethargic, drowsy, sleepy, appears chronically ill, has dementia per history. No family members at bedside. History per medical record. Review of systems limited. The patient keeps repeating "I don't feel well" but does not seem to be in any acute distress. PAST MEDICAL HISTORY: Hypertension, seizure disorder, congestive heart failure, depression, dementia. PAST SURGICAL HISTORY: Joint replacement. Right hip. Tubal ligation. MEDICATIONS: long-term medications and medicines in the hospital were reviewed per the medication sheet. Furosemide mg 20 b.i.d., lisinopril 5 mg once a day. Long list of medications all of which were reviewed. ALLERGIES: NKDA. SOCIAL HISTORY: Smoker for 40 years. Lives in a alf. FAMILY HISTORY: Unknown. PHYSICAL EXAMINATION: The patient is lethargic, sleepy, not in any acute distress. Vital signs reviewed at bedside. VITAL SIGNS: Temperature 96.8F, pulse rate 83, respiratory rate 18, blood pressure 109/71. Saturating 94%. HEENT: Head normocephalic. Eyes nonicteric, positive pallor. ENT mucosa moist. NECK: No JVD. Trachea midline. CHEST: No rales. No respiratory distress. CVS: Regular rate/murmur. EXTREMITIES: 1+ peripheral edema bilateral. No cyanosis. ABDOMEN: Soft, nontender, positive bowel sounds. No palpable edema. NEUROLOGIC: The patient is confused, not able to tell me which place she is in, which month or year it is. Responding to pain and trying to answer some questions at this point, moving all four extremities. PSYCHIATRIC: The patient appears to be depressed. SKIN: Warm and dry. LAB DATA AND TESTS: Hemoglobin 9.3, white blood cells 8.1, PLT count 146,000. Sodium 137, potassium 4.0, BUN 20, creatinine 0.6, folate 29. white blood cell count 33, hemoglobin 10.1. Procalcitonin 3.3, folate 30, BUN 39, creatinine 1.2. On initial admission creatinine 1.5 and potassium was 6. CT abdomen and pelvis showed suspected pulmonary metastasis, small bibasilar effusion, bilateral adrenal hypertrophy, arteriosclerotic disease with abdominal aortic aneurysm otherwise essentially nonacute nonobstructed abdomen. CT chest with multiple bilateral pulmonary masses favoring metastasis, left upper lobe cavitary malignancy, small bilateral effusions, pulmonary emphysema. ASSESSMENT AND PLAN: 1) Acute kidney disease likely secondary to dehydration, being on lisinopril and having some sepsis. Renal function will improve with fluids. I think she is adequately hydrated and in fact I am going to go ahead and stop her IV fluids, stop and avoid lisinopril and I will start her on diuretics and monitor hepatorenal functions. 2) Hypertension. The patient's blood pressure is borderline. Will go ahead and stop her lisinopril, avoid antihypertensive, monitor blood pressure and diurese as needed. 3) Will taper admission antibiotics. 4) Hyperkalemia. Stop lisinopril. I will monitor potassium closely. 5) Congestive heart failure. Evaluate echo. Hold diuretics. 6) Lung nodules suspected malignancy, management and evaluation per primary team. 7) Seizure disorder. Management per primary team. 8) Colitis. Management per primary team. 9) Anemia. Will check iron, B12, folate, folic acid. Thank you for this consultation. Please do not hesitate to contact me if you have any questions.
[2022-01-20] MEDS: Lasix 20 MG/2 ML IV SCH ×2 (08:04→17:50)
[2022-01-20] MEDS: ENOXAPARIN SODIUM SQ SCH (08:05)
[2022-01-20 08:22] LABS: BAND 22 % (0.0-2.0); Lymphocytes 12 % (24-44); Monocyte 2 % (0.0-12.0); Total Cells Counted 100
[2022-01-20 08:23] LABS: Platelet Estimate NORMAL (NORMAL)
--- NOTE | 2022-01-20 08:38 | PCM.NOTE ---
Date and Time: 01/20/22 0835 Subjective Assessment: patient is confused this morning, very concerned that she hasn't had any coffee. she is unable to answer questions about orientation. states her belly is sore Objective Exam General Appearance: no apparent distress Neurologic Exam: alert, No oriented x 3 Wound Assessment: Skin/Wound Assessment Wound/Incision Assessment Start: 01/16/22 20:56 Text: Status: Active Freq: Q6H Protocol: Document 01/20/22 02:00 EG (Rec: 01/20/22 02:19 EG [id number]) Wound/Incision Assessment Buttock Wound Assessment Shift Assessment Wound Type SHEARING/BLISTERS/EXCORIATION Wound Stage Non Pressure Wound Drainage Amount None Surrounding Tissue [place] Comment Medicated ointment utilized to bilateral buttocks Wound Photo Photo Taken Yes Respiratory Exam: normal breath sounds, lungs clear, No respiratory distress Cardiovascular Exam: regular rate/rhythm, normal heart sounds Gastrointestinal/Abdomen Exam: soft, tenderness, No guarding, No rebound Extremity Exam: normal inspection, normal range of motion OBJECTIVE DATA Vital Signs: Vital Signs - 24 hr Temp Pulse Resp BP Pulse Ox 01/20/22 05:46 99 H 18 96 01/20/22 04:00 97.5 F 102 H 18 129/70 96 01/19/22 23:30 97.5 F 102 H 18 129/70 96 01/19/22 19:33 97.5 F 88 22 118/86 98 01/19/22 17:22 78 16 98 01/19/22 16:00 97.1 F 88 16 112/74 97 01/19/22 12:00 96.9 F 86 20 109/88 100 Pain Assessment - Last Documented Pain Intensity 0 Pain Scale Used [facility] Intake and Output: Intake & Output 01/17/22 01/18/22 01/19/22 01/20/22 11:59 11:59 11:59 11:59 Intake Total 1462 2711 2047 2062 Output Total 350 500 600 250 Balance 1112 2211 1447 1812 Weight 66.7 kg 70 kg 75.9 kg Lab Results: Lab Results-Last 24 Hours 01/20/22 01/20/22 01/20/22 Range/Units 04:00 04:00 04:00 WBC 9.4 (4.0-10.5) x10^3/uL RBC 3.74 L (4.1-5.4) x10^6/uL Hgb 11.1 L (12.0-16.0) g/dL Hct 37.2 (35-47) % MCV 99.5 (78-100) fL MCH 29.7 (26-32) pg MCHC 29.8 L (32-36) g/dL RDW 19.0 H (11.5-14.0) % Plt Count 178 (150-450) x10^3/uL MPV 8.9 (7.5-11.0) fL Gran % 75.2 H (36.0-66.0) % Immature Gran % (Auto) 7.7 H (0.00-0.4) % Nucleat RBC Rel Count 0.2 H (0.00-0.1) % Eos # (Auto) 0 (0-0.5) x10^3/uL Immature Gran # (Auto) 0.72 H (0.00-0.03) x10^3u/L Absolute Lymphs (auto) 0.71 L (1.0-4.6) x10^3/uL Absolute Monos (auto) 0.80 (0.0-1.3) x10^3/uL Absolute Nucleated RBC 0.02 H (0.00-0.01) x10^3u/L Lymphocytes % 7.6 L (24.0-44.0) % Monocytes % 8.5 (0.0-12.0) % Eosinophils % 0.0 (0.00-5.0) % Basophils % 1.0 (0.0-0.4) % Absolute Granulocytes 7.08 H (1.4-6.9) x10^3/uL Segmented Neutrophils 64 (36.0-66.0) % Band Neutrophils 22 H (0.0-2.0) % Lymphocytes (Manual) 12 L (24-44) % Monocytes (Manual) 2 (0.0-12.0) % Basophils # 0.09 (0-0.4) x10^3/uL Platelet Estimate NORMAL (NORMAL) RBC Morphology NORMAL Sodium 139 (137-145) mmol/L Potassium 4.1 (3.5-5.1) mmol/L Chloride 108 H (98-107) mmol/L Carbon Dioxide 24 (22-30) mmol/L Anion Gap 10.4 (5-15) MEQ/L BUN 15 (7-17) mg/dL Creatinine 0.60 (0.52-1.04) mg/dL Estimated GFR > 60.0 ML/MIN Glucose 149 H (74-106) mg/dL Calcium 7.8 L (8.4-10.2) mg/dL Magnesium 1.9 (1.6-2.3) mg/dL Iron 28 L (37-170) ug/dL Ferritin 414 H (11.1-264) ng/mL Total Bilirubin 0.20 (0.2-1.3) mg/dL AST 15 (14-36) U/L ALT 12 (0-35) U/L Alkaline Phosphatase 120 (38-126) U/L Serum Total Protein 5.1 L (6.3-8.2) g/dL Albumin 2.2 L (3.5-5.0) g/dL Vitamin B12 > 1000 H (239-931) pg/mL C. difficile Screen (NEGATIVE) C.difficile [id number]-[id number] (NEGATIVE) 01/20/22 Range/Units 04:31 WBC (4.0-10.5) x10^3/uL RBC (4.1-5.4) x10^6/uL Hgb (12.0-16.0) g/dL Hct (35-47) % MCV (78-100) fL MCH (26-32) pg MCHC (32-36) g/dL RDW (11.5-14.0) % Plt Count (150-450) x10^3/uL MPV (7.5-11.0) fL Gran % (36.0-66.0) % Immature Gran % (Auto) (0.00-0.4) % Nucleat RBC Rel Count (0.00-0.1) % Eos # (Auto) (0-0.5) x10^3/uL Immature Gran # (Auto) (0.00-0.03) x10^3u/L Absolute Lymphs (auto) (1.0-4.6) x10^3/uL Absolute Monos (auto) (0.0-1.3) x10^3/uL Absolute Nucleated RBC (0.00-0.01) x10^3u/L Lymphocytes % (24.0-44.0) % Monocytes % (0.0-12.0) % Eosinophils % (0.00-5.0) % Basophils % (0.0-0.4) % Absolute Granulocytes (1.4-6.9) x10^3/uL Segmented Neutrophils (36.0-66.0) % Band Neutrophils (0.0-2.0) % Lymphocytes (Manual) (24-44) % Monocytes (Manual) (0.0-12.0) % Basophils # (0-0.4) x10^3/uL Platelet Estimate (NORMAL) RBC Morphology Sodium (137-145) mmol/L Potassium (3.5-5.1) mmol/L Chloride (98-107) mmol/L Carbon Dioxide (22-30) mmol/L Anion Gap (5-15) MEQ/L BUN (7-17) mg/dL Creatinine (0.52-1.04) mg/dL Estimated GFR ML/MIN Glucose (74-106) mg/dL Calcium (8.4-10.2) mg/dL Magnesium (1.6-2.3) mg/dL Iron (37-170) ug/dL Ferritin (11.1-264) ng/mL Total Bilirubin (0.2-1.3) mg/dL AST (14-36) U/L ALT (0-35) U/L Alkaline Phosphatase (38-126) U/L Serum Total Protein (6.3-8.2) g/dL Albumin (3.5-5.0) g/dL Vitamin B12 (239-931) pg/mL C. difficile Screen POSITIVE (NEGATIVE) C.difficile 027-NAP1-B1 PRESUMPTIVE NEGATIVE (NEGATIVE) Radiology Exams: Radiology Procedures Category Date Time Status ABDOMEN 2 VIEW Stat Exams 01/18/22 09:38 Completed ABDOMEN AND PELVIS W/0 CONTRAS [CT] Stat Exams 01/18/22 08:28 Completed ECHO W/2D AND DOPPLER [US] Routine Exams 01/20/22 00:00 Ordered Multi-Disciplinary Progress Notes: Multi-Disciplinary Progress Notes 01/19/22 09:31 Case Management Note by Krystle Grajeda PATIENT TO RETURN TO [facility] AT TIME OF DC Initialized on 01/19/22 09:31 - END OF NOTE Assessment/Plan (1) Sepsis Current Visit: Yes Status: Acute Qualifiers: Sepsis type: sepsis due to unspecified organism Sepsis acute organ dysfunction status: with acute organ dysfunction Severe sepsis acute organ dysfunction type: acute renal failure Acute renal failure type: unspecified Severe sepsis shock status: without septic shock Qualified Code(s): A41.9 - Sepsis, unspecified organism; R65.20 - Severe sepsis without septic shock; N17.9 - Acute kidney failure, unspecified Assessment & Plan: improved clinically, renal function improved (2) Colitis Current Visit: Yes Status: Acute Assessment & Plan: on flagyl and zosyn, c diff positive. wbc normalized and patient hemodynamically stable Code(s): K52.9 - NONINFECTIVE GASTROENTERITIS AND COLITIS, UNSPECIFIED (3) UTI (urinary tract infection) Current Visit: Yes Status: Acute Qualifiers: Urinary tract infection type: acute cystitis Hematuria presence: without hematuria Qualified Code(s): N30.00 - Acute cystitis without hematuria Assessment & Plan: on zosyn, gram negative ID still pending this morning Code(s): N39.0 - URINARY TRACT INFECTION, SITE NOT SPECIFIED (4) Acute renal failure Current Visit: No Status: Acute Qualifiers: Acute renal failure type: unspecified Qualified Code(s): N17.9 - Acute kidney failure, unspecified Assessment & Plan: resolved, gfr >60, this was likely sepsis related
[2022-01-20] MEDS: Ecotrin 325 MG PO SCH ×3 (12:06→22:32)
[2022-01-20] MEDS: Acidophilus TABLET PO SCH ×4 (12:06→22:31)
[2022-01-20] MEDS: Klor Con PO SCH ×3 (12:06→22:32)
[2022-01-20] MEDS: KEPPRA PO SCH ×3 (12:06→22:32)
--- NOTE | 2022-01-20 15:21 | ECHO ---
Transthoracic echocardiographic examination and color Doppler was done on 01/20/2022. INDICATION: Congestive heart failure. IMPRESSION: THIS IS A FAIRLY LIMITED STUDY WHICH PRECLUDES ADEQUATE ASSESSMENT OF THE INTRACARDIAC ANATOMY AND PHYSIOLOGY. The left ventricular ejection fraction is around 60%. There is mild left ventricular hypertrophy. The mitral valve opens adequately. There is mild mitral regurgitation. The aortic valve is thickened. The peak gradient across the left ventricular outflow tract is 61 mm of Mercury with a mean gradient of 23 mm of Mercury. There is mild tricuspid regurgitation with right ventricular systolic pressure of 42 mm of Mercury. Additional interrogation of the left ventricular outflow tract aortic valve is suggested.
[2022-01-21] MEDS: FLAGYL 500 MG IVPB 500 MG/100 ML BAG IV SCH ×3 (00:02→13:04)
[2022-01-21] MEDS: Piperacillin/Tazobactam 2.25 GM 2.25 GM in Sodium Chloride 100ML MINI-BAG PLUS 100 ML IV SCH ×2 (00:48→05:27)
[2022-01-21 06:27] LABS: Hematocrit 29.8 % (35-47); Hemoglobin 9.2 g/dL (12.0-16.0); Mean Cell Volume 97.1 fL (78-100); Mean Corpuscular Hgb Concent. 30.9 g/dL (32-36); Platelet Count 170 x10^3/uL (150-450); Red Blood Count 3.07 x10^6/uL (4.1-5.4); Red Cell Distribution Width 19.6 % (11.5-14.0); White Blood Count 11.4 x10^3/uL (4.0-10.5)
[2022-01-21 06:54] LABS: ALBUMIN 1.9 g/dL (3.5-5.0); ALKALINE PHOSPHATASE 92 U/L (38-126); ANION GAP 8.6 MEQ/L (5-15); BLOOD UREA NITROGEN 13 mg/dL (7-17); CHLORIDE 106 mmol/L (98-107); Calcium 7.4 mg/dL (8.4-10.2); Carbon Dioxide 25 mmol/L (22-30); Creatinine 1 0.62 mg/dL (0.52-1.04); EST GLOMERULAR FILTRATION RATE > 60.0 ML/MIN; Glucose 90 mg/dL (74-106); MAGNESIUM 1.9 mg/dL (1.6-2.3); Potassium 3.3 mmol/L (3.5-5.1); SGOT/AST 13 U/L (14-36); SGPT/ALT 9 U/L (0-35); SODIUM 136 mmol/L (137-145); Total Protein 4.3 g/dL (6.3-8.2)
[2022-01-21] MEDS: WIXELA 500-50 INHUB IH SCH (07:41)
[2022-01-21 09:15] VITALS: BP 160/85
[2022-01-21] MEDS: Zofran 4 MG/2 ML VIAL IV PRN (09:40)
[2022-01-21] MEDS: VENELEX OINTMENT TP SCH (09:54)
[2022-01-21] MEDS: Acidophilus TABLET PO SCH (10:11)
[2022-01-21] MEDS: KEPPRA PO SCH (10:11)
[2022-01-21] MEDS: Ecotrin 325 MG PO SCH (10:11)
[2022-01-21] MEDS: ENOXAPARIN SODIUM SQ SCH (10:11)
[2022-01-21] MEDS: Lasix 20 MG/2 ML IV SCH (10:12)
[2022-01-21] MEDS: Klor Con PO SCH (10:12)
[2022-01-21] MEDS: HYDROCODONE-ACETAMIN 10-325 MG PO PRN (10:12)
--- NOTE | 2022-01-21 14:12 | PCM.DS ---
Discharge Summary Date of Admission: 01/16/22 19:54 Admitting Physician: DAVID CHARLES Consults: Consults on Case 01/18/22 08:57 Consult Nephrology ROUTINE Primary Care Provider: DAVID CHARLES Allergies Allergies No Known Drug Allergies Allergy (Verified 01/16/22 20:57) Hospital Summary - Hospital Course Hospital Course: Chief Complaint Diagnosis SEPSIS, COLITIS, UTI, BILATERAL PULMONARY MASSES Allergies Allergy/AdvReac Type Severity Reaction Status Date / Time No Known Drug Allergies Allergy Verified 01/16/22 20:57 Vital Signs (Last 24 hours) Temp Pulse Resp BP Pulse Ox 01/21/22 08:00 97.1 F 74 20 160/85 93 L 01/21/22 07:41 74 20 93 L 01/21/22 04:00 96.7 F 79 28 H 133/62 93 L 01/21/22 00:00 96.9 F 87 16 135/77 93 L 01/20/22 20:00 97.0 F 106 H 25 H 136/90 90 L 01/20/22 18:58 100 H 24 90 L 01/20/22 16:00 98.4 F 100 H 27 H 123/88 91 L Home Medications Medication Instructions Recorded Confirmed Last Taken Type Albuterol 2.5 mg/3 ml Neb 1 neb IH Q4H PRN PRN 01/16/22 01/16/22 Unknown History [Proventil 2.5 mg/3 ml Neb] Balsam [place] Oil [Balsam 1 gm TOP TID 01/16/22 01/16/22 01/16/22 History Lynette-[place] Oil Oint] Ceftriaxone Sod 1000 mg Inj 1 g IM DAILY 5 Days #5 amp 01/21/22 Unknown Rx [Rocephin 1000 MG INJ] Metronidazole 500 mg [Flagyl 500 mg PO Q8H 7 Days #21 tablet 01/21/22 Unknown Rx 500 MG] Current Medications Generic Name Dose Route Start Last Admin Trade Name Freq PRN Reason Stop Dose Admin Acetaminophen 500 mg 01/17/22 09:50 Acetaminophen 500 Mg Tablet PO 02/16/22 09:49 Q4HPRN PRN PAIN AND/OR FEVER Hydrocodone Bitart/Acetaminophen 1 tablet 01/17/22 03:11 01/21/22 10:12 Hydrocodone/Acetamin 10-325 Mg Tablet PO 01/22/22 03:10 1 tablet Q6H PRN PRN Administration PAIN Albuterol Sulfate 2.5 mg 01/16/22 21:27 01/20/22 05:42 Albuterol Sulfate 2.5 Mg/3 Ml Neb IH 02/15/22 21:26 2.5 mg Q4H PRN PRN Administration SHORTNESS OF BREATH/WHEEZING Aspirin 325 mg 01/17/22 10:00 01/21/22 10:11 Aspirin 325 Mg Tablet.Ec PO 02/16/22 09:59 325 mg BID NARDA Administration Balsam Lindrith/[place] Oil 0 gm 01/17/22 10:00 01/21/22 09:54 Balsam Lindrith/[place] Oil 30 Gm Oint...G. TP 02/16/22 09:59 1 gm TID NARDA Administration Bisacodyl 10 mg 01/17/22 09:50 Bisacodyl 10 Mg Supp.Rect RC 02/16/22 09:49 DAILY PRN PRN CONSTIPATION Carvedilol 3.125 mg 01/17/22 10:00 01/17/22 22:59 Carvedilol 3.125 Mg Tablet PO 02/16/22 09:59 Not Given BID NARDA Divalproex Sodium 500 mg 01/17/22 10:00 01/21/22 13:04 Divalproex Sodium 250 Mg Tablet Delayed Release PO 02/16/22 09:59 500 mg QID NARDA Administration Enoxaparin Sodium 40 mg 01/18/22 10:00 01/21/22 10:11 Enoxaparin Sodium 40 Mg/0.4 Ml Syringe SQ 02/17/22 09:59 40 mg DAILY NARDA Administration Furosemide 20 mg 01/19/22 20:00 01/21/22 10:12 Furosemide 20 Mg/Vial IV 02/18/22 19:59 20 mg BID DIURETIC NARDA Administration Piperacillin Sod/Tazobactam 100 mls @ 200 mls/hr 01/17/22 00:00 01/21/22 05:27 Sod 2.25 gm/ Sodium Chloride IV 02/16/22 00:00 200 mls/hr Q6HT NARDA Administration Metronidazole 500 mg in 100 mls @ 200 mls/hr 01/17/22 00:00 01/21/22 13:04 Flagyl 500 Mg Ivpb IV 02/16/22 00:00 200 mls/hr Q6HT NARDA Administration Lactobacillus Acidophilus 1 tab 01/17/22 10:00 01/21/22 10:11 Lactobacillus Acidophilus 1 Tab Tablet PO 02/16/22 09:59 1 tab TID NARDA Administration Levetiracetam 500 mg 01/17/22 10:00 01/21/22 10:11 Levetiracetam 500 Mg Tablet PO 02/16/22 09:59 500 mg BID NARDA Administration Magnesium Hydroxide 30 ml 01/17/22 09:50 Magnesium Hydroxide 30 Ml Udcup PO 02/16/22 09:49 Q8H PRN PRN CONSTIPATION Ondansetron HCl 4 mg 01/16/22 19:56 01/21/22 09:40 Ondansetron Hcl 4 Mg/2 Ml Vial IV 02/15/22 19:55 4 mg Q6H PRN PRN Administration NAUSEA/VOMITING Potassium Chloride 20 meq 01/17/22 10:00 01/21/22 10:12 Potassium Chloride Tab 10 Meq Tab PO 02/16/22 09:59 20 meq BID NARDA Administration Discontinued Medications Generic Name Dose Route Start Last Admin Trade Name Freq PRN Reason Stop Dose Admin Acetaminophen 650 mg 01/16/22 19:56 Acetaminophen 325 Mg Tablet PO 02/15/22 19:55 Q4H PRN PRN PAIN, FEVER, HEADACHE Hydrocodone Bitart/Acetaminophen 1 tablet 01/16/22 21:27 01/16/22 22:39 Hydrocodone/Acetamin 10-325 Mg Tablet PO 01/21/22 21:26 1 tablet Q4H PRN PRN Administration PAIN Aspirin 325 mg 01/16/22 22:00 01/16/22 21:51 Aspirin 325 Mg Tablet.Ec PO 01/16/22 22:01 325 mg ONCE ONE Administration Divalproex Sodium 500 mg 01/16/22 22:00 01/16/22 21:52 Divalproex Sodium 250 Mg Tablet Delayed Release PO 01/16/22 22:01 500 mg ONCE ONE Administration Furosemide 20 mg 01/17/22 14:00 01/19/22 14:33 Furosemide 20 Mg Tablet PO 02/16/22 13:59 20 mg 0800,1400 NARDA Administration Furosemide Confirm 01/19/22 20:00 Furosemide 20 Mg/Vial Administered 01/19/22 20:01 Dose 20 mg .ROUTE .STK-MED ONE Sodium Chloride 1,000 mls @ 100 mls/hr 01/16/22 16:00 01/16/22 17:09 Sodium Chloride 0.9% 1000 Ml IV 02/15/22 15:59 100 mls/hr .Q10H NARDA Administration Piperacillin Sod/Tazobactam 100 mls @ 200 mls/hr 01/16/22 19:33 01/16/22 19:38 Sod 3.375 gm/ Sodium Chloride IV 01/16/22 20:02 200 mls/hr STAT ONE Administration Sodium Chloride Confirm 01/16/22 19:35 Sodium Chloride 100ml Mini-Bag Plus Administered 01/16/22 19:36 Dose 100 mls @ ud IV .STK-MED ONE Sodium Chloride Confirm 01/16/22 17:08 Sodium Chloride 0.9% 1000 Ml Administered 01/16/22 17:09 Dose 1,000 mls @ ud .ROUTE .STK-MED ONE Sodium Chloride 1,000 mls @ 100 mls/hr 01/16/22 19:56 01/16/22 22:14 Sodium Chloride 0.9% 1000 Ml IV 02/15/22 19:55 Not Given .Q10H NARDA Lactated Ringer's 1,000 mls @ 100 mls/hr 01/16/22 21:30 01/19/22 16:12 Lactated Ringers IV 02/15/22 21:29 100 mls/hr .Q10H NARDA Administration Sodium Chloride Confirm 01/16/22 21:50 Sodium Chloride 100ml Mini-Bag Plus Administered 01/16/22 21:51 Dose 100 mls @ ud IV .STK-MED ONE Sodium Chloride Confirm 01/17/22 05:02 Sodium Chloride 100ml Mini-Bag Plus Administered 01/17/22 05:03 Dose 100 mls @ ud IV .STK-MED ONE Lactobacillus Acidophilus 1 tab 01/17/22 22:00 01/16/22 21:51 Lactobacillus Acidophilus 1 Tab Tablet PO 01/17/22 22:01 1 tab ONCE ONE Administration Lactobacillus Acidophilus Confirm 01/16/22 21:51 Lactobacillus Acidophilus 1 Tab Tablet Administered 01/16/22 21:52 Dose 1 tab .ROUTE .STK-MED ONE Levetiracetam 500 mg 01/16/22 22:00 01/16/22 21:53 Levetiracetam 250 Mg Tablet PO 01/16/22 22:01 500 mg ONCE ONE Administration Lisinopril 5 mg 01/17/22 10:00 01/17/22 10:36 Lisinopril 5 Mg Tablet PO 02/16/22 09:59 Not Given DAILY NARDA Piperacillin Sod/Tazobactam Sod Confirm 01/16/22 19:35 Piperacillin/Tazobactam Sodium 3.375 Gm Vial Administered 01/16/22 19:36 Dose 3.375 gm IV .STK-MED ONE Piperacillin Sod/Tazobactam Sod Confirm 01/16/22 21:50 Piperacillin/Tazobactam Inj 2.25 Gm Vial Administered 01/16/22 21:51 Dose 2.25 gm IV .STK-MED ONE Piperacillin Sod/Tazobactam Sod Confirm 01/17/22 05:02 Piperacillin/Tazobactam Inj 2.25 Gm Vial Administered 01/17/22 05:03 Dose 2.25 gm IV .STK-MED ONE Fluticasone/Salmeterol 2 puff 01/17/22 07:00 01/19/22 17:20 Fluticasone/Salmeterol 230/21 Common Canister IH 02/16/22 06:59 2 puff BIDRT NARDA Administration Intake & Output (Last 24 hours) 01/19/22 01/20/22 01/21/22 01/22/22 11:59 11:59 11:59 11:59 Intake Total 2047 2062 1207 Output Total 623 750 8107 Balance 1447 1812 57 Weight 75.9 kg 76.8 kg Microbiology Results (Last 24 hours) 01/16/22 16:33 Urine, Void Urine Culture - Final Proteus Mirabilis Klebsiella Pneumoniae Laboratory Results (Last 24 hours) 01/21/22 01/21/22 05:50 05:50 WBC 11.4 H RBC 3.07 L Hgb 9.2 L Hct 29.8 L MCV 97.1 MCH 30.0 MCHC 30.9 L RDW 19.6 H Plt Count 170 MPV 9.0 Sodium 136 L Potassium 3.3 L Chloride 106 Carbon Dioxide 25 Anion Gap 8.6 BUN 13 Creatinine 0.62 Estimated GFR > 60.0 Glucose 90 Calcium 7.4 L Magnesium 1.9 Total Bilirubin 0.10 L AST 13 L ALT 9 Alkaline Phosphatase 92 Serum Total Protein 4.3 L Albumin 1.9 L Procalcitonin 1.340 H Orders (Last 24 hours) Category Date Time Status CBC W DIFF AM.LAB Lab 01/21/22 05:50 Completed CMP AM.LAB Lab 01/21/22 05:50 Completed MAGNESIUM AM.LAB Lab 01/21/22 05:50 Completed Manual Differential NC Routine Lab 01/21/22 05:50 Completed PROCALCITONIN Routine Lab 01/21/22 05:50 Completed Patient Care Notes (Last 24 hours) 01/21/22 12:59 Nursing Note by Miriam Zhang report called to Blanca at [facility] Initialized on 01/21/22 12:59 - END OF NOTE - Vitals & Intake/Output Vital Signs: Vital Signs Temperature 97.1 F 01/21/22 08:00 Pulse Rate 74 01/21/22 08:00 Respiratory Rate 20 01/21/22 08:00 Blood Pressure 160/85 01/21/22 08:00 O2 Sat by Pulse Oximetry 93 L 01/21/22 08:00 Intake & Output: Intake & Output 01/19/22 01/20/22 01/21/22 01/22/22 11:59 11:59 11:59 11:59 Intake Total 2047 2062 1207 Output Total 294 940 9645 Balance 1447 1812 57 Weight 75.9 kg 76.8 kg - Lab Result Diagrams: 01/21/22 05:50 01/21/22 05:50 Lab Results-Last 24 Hrs: Lab Results-Last 24 Hours 01/21/22 01/21/22 Range/Units 05:50 05:50 WBC 11.4 H (4.0-10.5) x10^3/uL RBC 3.07 L (4.1-5.4) x10^6/uL Hgb 9.2 L (12.0-16.0) g/dL Hct 29.8 L (35-47) % MCV 97.1 (78-100) fL MCH 30.0 (26-32) pg MCHC 30.9 L (32-36) g/dL RDW 19.6 H (11.5-14.0) % Plt Count 170 (150-450) x10^3/uL MPV 9.0 (7.5-11.0) fL Sodium 136 L (137-145) mmol/L Potassium 3.3 L (3.5-5.1) mmol/L Chloride 106 (98-107) mmol/L Carbon Dioxide 25 (22-30) mmol/L Anion Gap 8.6 (5-15) MEQ/L BUN 13 (7-17) mg/dL Creatinine 0.62 (0.52-1.04) mg/dL Estimated GFR > 60.0 ML/MIN Glucose 90 (74-106) mg/dL Calcium 7.4 L (8.4-10.2) mg/dL Magnesium 1.9 (1.6-2.3) mg/dL Total Bilirubin 0.10 L (0.2-1.3) mg/dL AST 13 L (14-36) U/L ALT 9 (0-35) U/L Alkaline Phosphatase 92 (38-126) U/L Serum Total Protein 4.3 L (6.3-8.2) g/dL Albumin 1.9 L (3.5-5.0) g/dL Procalcitonin 1.340 H (0.030-0.080) ng/mL Micro Results-Entire Visit: Microbiology 01/16/22 16:33 Urine Culture - Final Urine, Void Proteus Mirabilis Klebsiella Pneumoniae 01/16/22 16:20 Blood Culture - Preliminary Blood NO GROWTH TO DATE 01/16/22 16:20 Blood Culture - Preliminary Blood NO GROWTH TO DATE - Radiology Exams Ordered Rad Exams-Entire Visit: Radiology Procedures Category Date Time Status ECHO W/2D AND DOPPLER [US] Routine Exams 01/20/22 10:00 Draft - Procedures and Test Procedures and Tests throughout Hospitalization: Therapy Orders & Screens 01/16/22 20:56 OT Screen per Nursing Assess ONCE Comment: Protocol Order Physician Instructions: Greater than 3 points order OT Admission Screening Reason For Exam: Triggered on Admission Diagnosis: SEPSIS, COLITIS, UTI, BILATERAL PULMONARY MASSES Open Wound/Cellutlitis/Pressure Ulcers: Yes Acute Fx/ORIF/Change in wt bearing status: No Severe MUSCULOSKELETAL pain: No ADL Dysfunction: No Acute CVA w/Hemiparesis/Hemiplegia: No Decreased Functional Mobility/Strength: No Sprain/Strain: No Acute Post-op Mobility Dysfunction: No Total Points: 5 PT Screen per Nursing Assess ONCE Comment: Protocol Order Physician Instructions: Greater than 3 points order PT Admission Screenin Reason For Exam: Triggered on Admission Diagnosis: SEPSIS, COLITIS, UTI, BILATERAL PULMONARY MASSES Open Wound/Cellutlitis/Pressure Ulcers: Yes Acute Fx/ORIF/Change in wt bearing status: No Severe MUSCULOSKELETAL pain: No ADL Dysfunction: No Acute CVA w/Hemiparesis/Hemiplegia: No Decreased Functional Mobility/Strength: No Sprain/Strain: No Acute Post-op Mobility Dysfunction: No Total Points: 5 RT Screen per Nursing Assess ONCE Comment: Protocol Order Physician Instructions: Greater than 3 points order RT Admission Screen Reason For Exam: Triggered on Admission Diagnosis: SEPSIS, COLITIS, UTI, BILATERAL PULMONARY MASSES Diagnosis: SEPSIS, COLITIS, UTI, BILATERAL PULMONARY MASSES Pneumonia: No Home O2: Yes Asthma: No CHF: No Home CPAP/BIPAP: No Home Nebs/MDI: Yes Total Points: 10 01/16/22 22:48 Respiratory Therapy Assessment DAILY Comment: Diagnosis: SEPSIS, COLITIS, UTI, BILATERAL PULMONARY MASSES 01/16/22 22:49 Respiratory MDI BID Comment: Diagnosis: SEPSIS, COLITIS, UTI, BILATERAL PULMONARY MASSES 01/16/22 22:50 Oxygen Nasal Cannula 2 lpm Comment: Diagnosis: SEPSIS, COLITIS, UTI, BILATERAL PULMONARY MASSES 01/20/22 05:43 Respiratory MDI BID Comment: WIXELLA 500/50 Diagnosis: SEPSIS, COLITIS, UTI, BILATERAL PULMONARY MASSES Discharge Exam General Appearance: no apparent distress, alert Neurologic Exam: alert, oriented x 3, cooperative, normal mood/affect, nml cerebellar function, sensation nml, No motor deficits Eye Exam: PERRL, EOMI, eyes nml inspection Ears, Nose, Throat Exam: normal ENT inspection, pharynx normal, moist mucous membranes Neck Exam: normal inspection, non-tender, supple, full range of motion Respiratory Exam: normal breath sounds, lungs clear, No respiratory distress Cardiovascular Exam: regular rate/rhythm, normal heart sounds Gastrointestinal/Abdomen Exam: soft, No tenderness, No mass Pelvic Exam: deferred Rectal Exam: deferred Back Exam: normal inspection, normal range of motion, No CVA tenderness, No v ertebral tenderness Extremity Exam: normal inspection, normal range of motion Skin Exam: normal color, warm, dry Wound Assessment: Skin/Wound Assessment Wound/Incision Assessment Start: 01/16/22 20:56 Text: Status: Active Freq: Q6H Protocol: Document 01/21/22 08:00 (Rec: 01/21/22 09:53 [id number]) Wound/Incision Assessment Buttock Wound Assessment Shift Assessment Wound Type SHEARING/BLISTERS/EXCORIATION Drainage Amount None Surrounding Tissue [place] Comment Medicated ointment applied Final Diagnosis/Problem List - Final Discharge Diagnosis/Problem (1) Sepsis Current Visit: Yes Status: Resolved (2) C. difficile colitis Current Visit: Yes Status: Acute Assessment & Plan: Abnormal Lab Results 01/21/22 01/21/22 Range/Units 05:50 05:50 WBC 11.4 H (4.0-10.5) x10^3/uL RBC 3.07 L (4.1-5.4) x10^6/uL Hgb 9.2 L (12.0-16.0) g/dL Hct 29.8 L (35-47) % MCHC 30.9 L (32-36) g/dL RDW 19.6 H (11.5-14.0) % Sodium 136 L (137-145) mmol/L Potassium 3.3 L (3.5-5.1) mmol/L Calcium 7.4 L (8.4-10.2) mg/dL Total Bilirubin 0.10 L (0.2-1.3) mg/dL AST 13 L (14-36) U/L Serum Total Protein 4.3 L (6.3-8.2) g/dL Albumin 1.9 L (3.5-5.0) g/dL Procalcitonin 1.340 H (0.030-0.080) ng/mL Last Vital Signs Temp 97.1 F 01/21/22 08:00 Pulse 74 01/21/22 08:00 Resp 20 01/21/22 08:00 BP 160/85 01/21/22 08:00 Pulse Ox 93 L 01/21/22 08:00 Allergies No Known Drug Allergies Allergy (Verified 01/16/22 20:57) Active Medications Acetaminophen (Acetaminophen 500 Mg Tablet) 500 mg PO Q4HPRN PRN PRN Reason: PAIN AND/OR FEVER Stop: 02/16/22 09:49 Hydrocodone Bitart/Acetaminophen (Hydrocodone/Acetamin 10-325 Mg Tablet) 1 tablet PO Q6H PRN PRN PRN Reason: PAIN Stop: 01/22/22 03:10 Last Admin: 01/21/22 10:12 Dose: 1 tablet Albuterol Sulfate (Albuterol Sulfate 2.5 Mg/3 Ml Neb) 2.5 mg IH Q4H PRN PRN PRN Reason: SHORTNESS OF BREATH/WHEEZING Stop: 02/15/22 21:26 Last Admin: 01/20/22 05:42 Dose: 2.5 mg Aspirin (Aspirin 325 Mg Tablet.Ec) 325 mg PO BID NARDA Stop: 02/16/22 09:59 Last Admin: 01/21/22 10:11 Dose: 325 mg Balsam Lindrith/[place] Oil (Balsam Lindrith/[place] Oil 30 Gm Oint...G.) 0 gm TP TID NARDA Stop: 02/16/22 09:59 Last Admin: 01/21/22 09:54 Dose: 1 gm Bisacodyl (Bisacodyl 10 Mg Supp.Rect) 10 mg RC DAILY PRN PRN PRN Reason: CONSTIPATION Stop: 02/16/22 09:49 Carvedilol (Carvedilol 3.125 Mg Tablet) 3.125 mg PO BID NARDA Stop: 02/16/22 09:59 Last Admin: 01/17/22 22:59 Dose: Not Given Divalproex Sodium (Divalproex Sodium 250 Mg Tablet Delayed Release) 500 mg PO QID NARDA Stop: 02/16/22 09:59 Last Admin: 01/21/22 13:04 Dose: 500 mg Enoxaparin Sodium (Enoxaparin Sodium 40 Mg/0.4 Ml Syringe) 40 mg SQ DAILY NARAD Stop: 02/17/22 09:59 Last Admin: 01/21/22 10:11 Dose: 40 mg Furosemide (Furosemide 20 Mg/Vial) 20 mg IV BID DIURETIC NARDA Stop: 02/18/22 19:59 Last Admin: 01/21/22 10:12 Dose: 20 mg Piperacillin Sod/Tazobactam (Sod 2.25 gm/ Sodium Chloride) 100 mls @ 200 mls/hr IV Q6HT NARDA Stop: 02/16/22 00:00 Last Admin: 01/21/22 05:27 Dose: 200 mls/hr Metronidazole (Flagyl 500 Mg Ivpb) 500 mg in 100 mls @ 200 mls/hr IV Q6HT NARDA Stop: 02/16/22 00:00 Last Admin: 01/21/22 13:04 Dose: 200 mls/hr Lactobacillus Acidophilus (Lactobacillus Acidophilus 1 Tab Tablet) 1 tab PO TID NARDA Stop: 02/16/22 09:59 Last Admin: 01/21/22 10:11 Dose: 1 tab Levetiracetam (Levetiracetam 500 Mg Tablet) 500 mg PO BID NARDA Stop: 02/16/22 09:59 Last Admin: 01/21/22 10:11 Dose: 500 mg Magnesium Hydroxide (Magnesium Hydroxide 30 Ml Udcup) 30 ml PO Q8H PRN PRN PRN Reason: CONSTIPATION Stop: 02/16/22 09:49 Ondansetron HCl (Ondansetron Hcl 4 Mg/2 Ml Vial) 4 mg IV Q6H PRN PRN PRN Reason: NAUSEA/VOMITING Stop: 02/15/22 19:55 Last Admin: 01/21/22 09:40 Dose: 4 mg Potassium Chloride (Potassium Chloride Tab 10 Meq Tab) 20 meq PO BID NARDA Stop: 02/16/22 09:59 Last Admin: 01/21/22 10:12 Dose: 20 meq Intake & Output 01/21/22 01/22/22 11:59 11:59 Intake Total 1207 Output Total 1150 Balance 57 Weight 76.8 kg Lab Tests 01/21/22 01/21/22 05:50 05:50 WBC 11.4 H RBC 3.07 L Hgb 9.2 L Hct 29.8 L MCV 97.1 MCH 30.0 MCHC 30.9 L RDW 19.6 H Plt Count 170 MPV 9.0 Sodium 136 L Potassium 3.3 L Chloride 106 Carbon Dioxide 25 Anion Gap 8.6 BUN 13 Creatinine 0.62 Estimated GFR > 60.0 Glucose 90 Calcium 7.4 L Magnesium 1.9 Total Bilirubin 0.10 L AST 13 L ALT 9 Alkaline Phosphatase 92 Serum Total Protein 4.3 L Albumin 1.9 L Procalcitonin 1.340 H Microbiology 01/16/22 16:33 Urine, Void Urine Culture - Final Proteus Mirabilis Klebsiella Pneumoniae Code(s): A04.72 - ENTEROCOLITIS D/T CLOSTRIDIUM DIFFICILE, NOT SPCF RECUR (3) Colitis Current Visit: Yes Status: Acute Code(s): K52.9 - NONINFECTIVE GASTROENTERITIS AND COLITIS, UNSPECIFIED (4) UTI (urinary tract infection) Current Visit: Yes Status: Acute Code(s): N39.0 - URINARY TRACT INFECTION, SITE NOT SPECIFIED (5) CHF (congestive heart failure) Current Visit: No Status: Chronic Code(s): I50.9 - HEART FAILURE, UNSPECIFIED (6) Dementia Current Visit: No Status: Chronic Code(s): F03.90 - UNSPECIFIED DEMENTIA WITHOUT BEHAVIORAL DISTURBANCE - Discharge Discharge Date: 01/21/22 Disposition: DC TO ANY "OTHER" RETIREMENT Condition: Stable Prescriptions: New Metronidazole 500 mg [Flagyl 500 MG] 500 mg PO Q8H 7 Days #21 tablet Ceftriaxone Sod 1000 mg Inj [Rocephin 1000 MG INJ] 1 g IM DAILY 5 Days #5 amp No Action Lisinopril 5 mg [Zestril 5 MG] 5 mg PO DAILY Levetiracetam [Keppra] 500 mg PO BID Hydrocodone/Acetaminophen [Hydrocodone-Acetamin 10-325 mg] 1 tab PO Q6H PRN PRN PRN Reason: Pain Furosemide [Lasix] 20 mg PO 0800,1400 Divalproex Sodium 500 mg PO QID Carvedilol 3.125 mg [Coreg 3.125 MG] 3.125 mg PO BID Budesonide/Formoterol Fumarate [Budesonide-Formoterol 160-4.5] 2 puff IH BID Bisacodyl 10 mg [Dulcolax 10 MG SUPP] 10 mg RC DAILY PRN PRN PRN Reason: Constipation Aspirin EC 325 mg [Ecotrin 325 MG] 325 mg PO BID Acetaminophen 500 mg [Tylenol Extra Strength 500 mg] 500 mg PO Q4HPRN PRN PRN Reason: Pain And/Or Fever Sodium Phosphate,[place]-Dibasic [Fleet Enema] 1 applic RC DAILY PRN PRN PRN Reason: Constipation Magnesium Hydroxide 30 ml [Milk of Magnesia 30 ml] 30 ml PO Q8H PRN PRN PRN Reason: Constipation Lactobacillus Acidophilus [Acidophilus TABLET] 1 tab PO TID #30 tablet Potassium Chloride Tab* [Klor Con] 20 meq PO BID #60 tab Albuterol 2.5 mg/3 ml Neb [Proventil 2.5 mg/3 ml Neb] 1 neb IH Q4H PRN PRN PRN Reason: Shortness Of Breath/Wheezing Balsam Lindrith/[place] Oil [Balsam [place] Oil Oint] 1 gm TOP TID Follow up with: ZELDA PACHECO [CONSULTING PHYSICIAN] - DAVID CHARLES [Primary Care Provider] -
[2022-01-21 14:17] VITALS: PULSE 68; O2SAT 96
[2022-01-21 17:55] LABS: BAND 16 % (0.0-2.0); Lymphocytes 17 % (24-44); Monocyte 6 % (0.0-12.0); Total Cells Counted 100
[2022-01-21 17:56] LABS: Hypochromia 1+
== END 2022-01-21 14:15 | DRG 872 ==
LOC: ED 15:32 → ICU 19:54 → MED SURG 01-19 15:49
PROVIDERS: ADMIT Family Medicine; ATTEND Family Medicine
DX: A41.9 Sepsis, unspecified organism (principal); A04.72 Enterocolitis due to Clostridium difficile, not specified as recurrent; N39.0 Urinary tract infection, site not specified; N17.9 Acute kidney failure, unspecified; K52.9 Noninfective gastroenteritis and colitis, unspecified; I11.0 Hypertensive heart disease with heart failure; I50.9 Heart failure, unspecified; F03.90 Unspecified dementia, unspecified severity, without behavioral disturbance, psychotic disturbance, mood disturbance, and anxiety; G40.909 Epilepsy, unspecified, not intractable, without status epilepticus; R91.8 Other nonspecific abnormal finding of lung field; S30.820A Blister (nonthermal) of lower back and pelvis, initial encounter; Z79.899 Other long term (current) drug therapy; Z20.828 Contact with and (suspected) exposure to other viral communicable diseases
CPT/HCPCS: 0241U; 36000; 36415; 51702; 70450; 71250; 74021; 74176; 80053; 80164; 81015; 82607; 82728; 83540; 83605; 83735; 84145; 85025; 85027; 87040; 87077; 87086; 87186; 87493; 93005; 93041; 93306; 94640; 94760; 96360; 96361; 96365; 99285; 99291; P9604; J1650; J1940; J2405; J2543; J7609; A9270-GY